=== PATIENT | female | born 1940 | race Caucasian/White ===

== ENCOUNTER → 2017-06-24 | Outpatient (CLI) | payer MEDICARE, OTHER, BC ==
[~2017-06-24] MED LIST: ALPR0.5T3 PO; AMBI5TAB PO; ANTI DEPRESSANT; CALC600T60 PO; LEVO25TA5 PO; LIVA2TAB PO; MULTCAP11 PO; NORT10SO PO; PAIN MEDICATION; SUPECAP PO; VITA500C24 PO; VITA500T88 PO; cipro PO; percocet PO
--- NOTE | 2017-07-15 00:28 | ECWPNPC ---
PATIENT NAME: NIKOLAY HAMILTON : 1940 GENDER: FEMALE VISIT DATE: 06/24/2017 DISCHARGE DATE: 06/24/17 1505 VISIT LOCKED DATE TIME: PHYSICIAN: CAMILLE BOATENG RESOURCE: CAMILLE BOATENG REASON FOR APPOINTMENT 1. BACK HISTORY OF PRESENT ILLNESS FALL RISK SCREENING: SCREENING :NO FALLS IN THE PAST YEAR PAIN SCREENING: PATIENT HAS A COMPLAINT OF ACUTE OR CHRONIC PAIN :YES TODAY'S VISIT: NOTES: REFERRED BY Isaiah BUSTAMANTE PA-C FOR CHRONIC LOW BACK PAINSTATES HAS HAD BACK PAIN FOR 16 YEARS AND FOR 15 YEARS ATTENDED [facility] AND HAD INJECTION THERAPY, HER ELECTRIC WC WAS ORDERED THROUGH THEM. HEAT EASES THE PAIN THE MOST. PAIN HAS INCREASED OVER LAST FEW YEARS. LAST INJECTION WAS OVER A YEAR AGO. PAIN IS A SHARP ACHE AND IS PROLONGED. PAIN IS CENTERED IN LOW BACK WITH SLIGHT RADIATION TO LEFT LEG TO KNEE INTERMITTANTLY. NO PAIN INTO RIGHT LEG. NO N/T/ FEET. WAS TOLD SHE SHOULD NOT WALK MORE THAN 1 BLOCK BY PROVIDERS AT [facility] AND MOTORIZED CHAIR WAS ORDERED. HAS DIFFICULTY STANDING FOR PROLONGED PERIOD. INJECTIONS HELPED THIS. . CURRENT MEDICATIONS TAKING NORTRIPTYLINE HCL 10 MG CAPSULE 1 CAPSULE ORALLY DAILY TAKING ZOLPIDEM TARTRATE 5 MG TABLET 1 TABLET AT BEDTIME ORALLY ONCE A DAY TAKING MELOXICAM 15 MG TABLET 1 TABLET ORALLY ONCE A DAY TAKING LEVOTHYROXINE SODIUM 50 MCG TABLET 1 TABLET ON AN EMPTY STOMACH IN THE MORNING ORALLY ONCE A DAY TAKING CITALOPRAM HYDROBROMIDE 20 MG TABLET 1 TABLET ORALLY ONCE A DAY TAKING ALPRAZOLAM 0.5 MG TABLET 1 TABLET ORALLY THREE TIMES A DAY TAKING LIVALO TABLET ORAL TAKING FIBER - TABLET 2 TABS ORALLY ONCE A DAY NOT-TAKING CIPROFLOXACIN HCL 500 MG TABLET 1 TABLET ORALLY EVERY 12 HRS MEDICATION LIST REVIEWED AND RECONCILED WITH THE PATIENT PAST MEDICAL HISTORY HYPERLIPIDEMIA ANXIETY DEGENERATIVE DISC DISEASE INSOMNIA HYPOTHYROIDISM CATARACTS KIDNEY STONES PULMONARY EMBOLISM ALLERGIES SULFA: HIVES: ALLERGY TAPE ADHESIVE: HIVES: ALLERGY SURGICAL HISTORY TONSILLECTOMY 1945 ADENOIDECTOMY 1945 RIB TAKEN OUT GANGLION CYST X3 SHOULDER SURGERY CHOLECYSTECTOMY KIDNEY STONES REMOVED X2 ANKLE SURGERY LEFT THUMB SURGERY LITHOTRIPSY 05/2014 RIGHT EYE CATARACT SURGERY 06/18/15 LEFT EYE CATARACT SURGERY 08/2015 FAMILY HISTORY FATHER: 66 YRS MOTHER: 75 YRS SIBLINGS: 78 YRS 1 BROTHER(S) . 1DAUGHTER(S) . BROTHER FROM COLON/PANCREATIC CANCER. SOCIAL HISTORY GENERAL: TOBACCO USE ARE YOU A:CURRENT SMOKER HOW MANY CIGARETTES A DAY DO YOU SMOKE?5 OR LESS HOW SOON AFTER YOU WAKE UP DO YOU SMOKE YOUR FIRST CIGARETTE?AFTER 60 MIN HOW OFTEN DO YOU SMOKE CIGARETTES?EVERY DAY PATIENT COUNSELED ON THE DANGERS OF TOBACCO USE AND URGED TO QUIT:06/24/2017 ARE YOU INTERESTED IN QUITTING?NOT READY TO QUIT COUNSELED THE PATIENT ON SMOKING EFFECTS, EDUCATION [id number]/03/2017 LUNG CANCER SCREENING SMOKING STATUS:CURRENT SMOKER ALCOHOL SCREENING POINTS0 INTERPRETATIONNEGATIVE RECREATIONAL DRUG USE DENIES. CAFFEINE 1 A DAY.. SEXUAL HX HAD SEX IN THE LAST 12 MONTHS (VAGINAL, ORAL, OR ANAL)?: NO, HAVE YOU EVER HAD AN STD?: NO. DIET: REGULAR. EXERCISE: WALKS. MARITAL STATUS: . GNOSTICIST [id number] [employer] LANGUAGE LANGUAGES SPOKEN:DANISH EDUCATION LEVEL OF EDUCATION:NOT FINISHED COLLEGE [employer]ANCE DIRECTIVES HEALTH CARE PROXY?NO WOULD YOU LIKE MORE INFORMATION?NO DO YOU HAVE A DNR?NO WOULD YOU LIKE MORE INFORMATION?NO LIVING WILL?NO WOULD YOU LIKE MORE INFORMATION?NO POWER OF SONOGRAPHY TECHNICIAN?NO DOMESTIC VIOLENCE NONE. HOSPITALIZATION/MAJOR DIAGNOSTIC PROCEDURE SURGERY RELATED ONLY REVIEW OF SYSTEMS FOLLOW-UP ROS: PSYCHOLOGY: ANXIETY FOLLOWED BY Harsh BUSTAMANTE . REVIEWED BY: PROVIDER: CAMILLE MARISCAL . CONSTITUTIONAL: ANY CHANGE IN YOUR MEDICAL CONDITION? YES, PT STATES SHE IS BEING TREATED FOR MONO . CHILLS NO . FEVER NO . INFECTION: DO YOU HAVE NEW INFECTIONS? NO . DO YOU HAVE HISTORY OF MRSA? NO . MUSCULOSKELETAL: ANY NEW PATTERNS OF PAIN OR NUMBNESS? YES, PT REPORTS LOWER BACK PAIN . SYTEMIC LUPUS NO . GASTROENTEROLOGY: GENERAL HX OF IBSD - FOLLOWS WITH ROUTINE COLONOSCOPY . ANY NEW CHANGE IN BOWEL CONTROL? NO . BARRETTS ESOPHAGUS NO . CIRRHOSIS NO . HEPATITIS NO . LIVER FAILURE NO . ACID REFLUX NO . UNEXPLAINED WEIGHT LOSS NO . GENITOURINARY: ANY NEW CHANGE IN BLADDER CONTROL? NO . IS THERE A CHANCE YOU COULD BE ? NO . HEMATOLOGY/LYMPH: DO YOU TAKE ANY BLOOD THINNERS? (FOR EXAMPLE- COUMADIN, PLAVIX, AGGRENOX, PLATEL, PRADAXA, OR XARELTO) NO . WHEN WAS YOUR LAST DOSE? DATE: TIME: . LOW PLATELET COUNT NO . SICKLE CELL DISEASE NO . VON WILLIEBRANDS NO . FACTOR V LEIDEN NO . THALLASEMIA NO . ANEMIA NO . EASY BRUISING NO . NEUROLOGY: HAVE YOU FALLEN IN THE PAST 6 MONTHS? NO . ANY NEW EXTREMITY NUMBNESS OR WEAKNESS? NO . HEAD INJURY NO . DEMENTIA NO . CEREBRAL PALSY NO . MULTIPLE SCLEROSIS NO . DIZZINESS NO . HEADACHE NO . STROKES NO . VERTIGO NO . CARDIOLOGY: DO YOU HAVE A PACEMAKER OR DEFIBRILLATOR? NO . ANGINA NO . HEART ATTACK NO . HEART SURGERY NO . CONGESTIVE HEART FAILURE/FLUID OVERLOAD NO . CHEST PAIN NO . HIGH BLOOD PRESSURE NO . IRREGULAR HEART BEAT NO . RESPIRATORY: SLEEP APNEA HAS BEEN TESTED - TOLD SHE DOES NOT BREATHE DEEPLY. 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 . HAVE YOU BEEN SICK IN THE PAST WEEK? NO . FEVER NO . FLU LIKE SYMPTOMS? NO . CPAP NO . BYPAP NO . ASTHMA NO . EMPHYSEMA NO . CHRONIC LUNG DISEASES NO . SHORTNESS OF BREATH ON EXERTION NO . COUGH NO . SNORING NO . INTEGUMENTARY: DO YOU HAVE ANY RASHES OR OPEN SORES? NO . ALLERGIC/IMMUNO: ARE YOU ALLERGIC TO SHELLFISH OR IV DYE? NO . ANY NEW ALLERGIES? NO . PSYCHIATRIC: DO YOU HAVE THOUGHTS OF HURTING YOURSELF OR SOMEONE ELSE? NO . ARE YOU ABUSED, NEGLECTED, OR IN AN UNSAFE ENVIRONMENT? NO . ENDOCRINOLOGY: ARE YOU DIABETIC? NO . THYROID DISORDER YES - ON REPLACEMENT . OTHER: DO YOU NEED ANY PRESCRIPTIONS? NO . IF YES, PLEASE LIST: ____ . ANY NEW PROBLEMS WITH YOUR MEDICATIONS? NO . WHEN DID YOU LAST EAT? ____ . WHEN DID YOU LAST DRINK? ____ . WHAT DID YOU LAST DRINK? ____ . NAME OF PERSON DRIVING YOU HOME? ____ . DO YOU HAVE ANY OTHER QUESTIONS OR CONCERNS NO . VITAL SIGNS WT 206.2 LBS, HT 5 1/2', BMI 33.28 INDEX, BP 126/70 MM HG, HR 78 /MIN, RR 18 /MIN, TEMP 96.0 F, OXYGEN SAT % 94%, SAFE IN ENV? (Y/N) YES, NA INITIALS MP 1346, REVIEWED BY: EM. EXAMINATION GENERAL EXAMINATION: GENERAL APPEARANCE:TALKATIVE, ANIMATED. PSYCHALERT , APPROPRIATE MOOD AND AFFECT , ORIENTED X 3 . HEENT:NORMOCEPHALIC, NO LYMPHADENOPATHY, NO THYROMEGLY. LUNGS:CLEAR TO AUSCULTATION BILATERALLY, NO WHEEZES, RALES AND RHONCHI. HEART:HEART RATE REGULAR, NORMAL S1S2, NO MURMURS, CLICK OR RUBS. MUSCULOSKELETAL:EXQUISITE OVER LEFT SACRAL ILIAC JOINT AND ACROSS THE LUMBOSACRAL AXIS. , TRIGGER POINTS AND TIGHT FIBROUS BANDS NOTED ACROSS SACRUM. SLOW TO RISE TO STANDING POSITION. POSITIVE PAYTON SIGN LEFT SIDE. . EXTREMITIES:NO EDEMA. NEUROLOGIC EXAM:NO SENS . DTR'S 1+ LLE, TRACE TO ABSENT ANKLE JERKS, PLANTAR RESPONSE IS EQUIV. 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 WITHOUT [id number],SUSAN M 06/24/2017 2:56:40 PM > HX OF STENOSIS, NOW WITH INCREASED LEFT LEG PAIN, BACK PAIN NOTES: NEED TREATMENT RECORDS AND IMAGING STUDIES FROM [facility], FALLS CARE PLAN: 1. RECOMMEND REMOVING ALL THROW RUGS. 2. RECOMMEND NIGHT LIGHTS 3. RECOMMEND WEARING RUBBER SOLED SHOES AND TO NOT GO BAREFOOT. 4.. ADVISED TO CHANGE POSITION SLOWLY FROM SUPINE TO STANDING TO AVOID DIZZINESS. 5. ADVISED TO USE ASSISTIVE DEVICE SUCH CANE OR WALKER 6. USE LIFELINE SERVICES OR KEEP PORTABLE PHONE READILY AVAILABLE, # 226 TOBACCO USE SCREENING/INTERVENTION: PATIENT CURRENTLY USED TOBACCO. WAS OFFERED SMOKING CESSATION FOR GUIDANCE IN QUITTING THROUGH THE [facility] QUITS PROGRAM AND THE [facility] CESSATION PROGRAM. PROCEDURE CODES FA211 ESTABILISHED PATIENT [facility] FAC[facility] CHARGE A8562 PAIN ASSESS POS TOOL F/U PLAN DOC 3016F PT SCRND UNHLTHY OH USE 1124F ACP DISCUSS-NO [id number] DOCD 0518F FALL PLAN OF CARE DOCD G8427 DOC MEDS VERIFIED W/PT OR RE G8420 BMI<30 AND >=22 CALC & DOCU 3288F FALL RISK ASSESSMENT DOCD 4004F PT TOBACCO SCREEN RCVD TLK DISPOSITION & COMMUNICATION FOLLOW UP 1 MONTH (REASON: [facility] TREATMENT NOTES AND IMAGING STUDIES BACK PAIN) ELECTRONICALLY SIGNED BY AC CHACON ON 07/14/2017 AT 06:48 PM EDT DISCLAIMER : THIS IS A VISIT SUMMARY [facility]ACTED FROM [facility]. IT IS NOT A COPY OF THE [facility] PROGRESS NOTE. MTDD
== END ==
LOC: M PAIN 13:20
PROVIDERS: ATTEND Nurse Practitioner Family
DX: G89.29 Other chronic pain (principal); M54.42 Lumbago with sciatica, left side; M41.26 Other idiopathic scoliosis, lumbar region; E78.5 Hyperlipidemia, unspecified; F41.9 Anxiety disorder, unspecified; G47.00 Insomnia, unspecified; E03.9 Hypothyroidism, unspecified; F17.210 Nicotine dependence, cigarettes, uncomplicated; Z87.442 Personal history of urinary calculi; Z86.711 Personal history of pulmonary embolism; Z79.899 Other long term (current) drug therapy; Z88.2 Allergy status to sulfonamides; Z91.048 Other nonmedicinal substance allergy status

== ENCOUNTER → 2017-06-29 | Outpatient (CLI) | payer MEDICARE, BC, OTHER ==
--- NOTE | 2017-06-29 15:50 | REP ---
MRI LUMBAR SPINE WITHOUT CONTRAST: HISTORY: Back pain. Decreased signal intensity on T2-weighted images is present in the lumbar intervertebral discs. The discs are decreased in height. These findings are consistent with disc degeneration. There is no disc bulge or herniation at the L1-2 through L3-4 and L5-S1 levels. There is hypertrophy of the ligamenta flava and posterior articulating facets at the L2-3 and L3-4 levels and facet hypertrophy at the L5-S1 level. The nerves exit the neural foramina without compression. A diffuse disc bulge is present at the L4-5 level. There is minimal compression of the thecal sac. There is hypertrophy of the ligamenta flava and posterior articulating facets. The L4 nerves exit the neural foramina without compression. The conus medullaris is normal in appearance terminating at the level of the L1 intervertebral disc. Hemangiomas are present in the T11 and L4 vertebral bodies. Increased signal intensity on T2-weighted images is present in the endplates of the L2 through L4 vertebral bodies. This represents degenerative change. IMPRESSION: Diffuse disc bulge at the L4-5 level with minimal thecal sac compression. Signed by Maikol Castro MD 06/29/2017 03:54 P
== END ==
LOC: M RAD 14:07
PROVIDERS: ATTEND Nurse Practitioner Family
DX: M51.26 Other intervertebral disc displacement, lumbar region (principal); M54.42 Lumbago with sciatica, left side

== ENCOUNTER → 2017-07-23 | Outpatient (CLI) | payer MEDICARE, BC, OTHER ==
--- NOTE | 2017-08-15 00:48 | ECWPNPC ---
PATIENT NAME: NIKOLAY HAMILTON : 1940 GENDER: FEMALE VISIT DATE: 07/23/2017 DISCHARGE DATE: 07/23/17 1552 VISIT LOCKED DATE TIME: PHYSICIAN: CAMILLE BOATENG RESOURCE: CAMILLE BOATENG REASON FOR APPOINTMENT 1. BACK HISTORY OF PRESENT ILLNESS HISTORY OF PRESENT ILLNESS: PAIN THE PATIENT DESCRIBES THE PAIN... FALL RISK SCREENING: SCREENING :NO FALLS IN THE PAST YEAR TODAY'S VISIT: NOTES: RATES PAIN LEVEL TODAY 8/10. NOTES CAN NOT GET COMFORTABLE. NOTES PAIN ID CONSTANT, ACHING, STABBING, SORE AND TENDER. . CURRENT MEDICATIONS TAKING NORTRIPTYLINE HCL 10 MG CAPSULE 1 CAPSULE ORALLY DAILY TAKING ZOLPIDEM TARTRATE 5 MG TABLET 1 TABLET AT BEDTIME ORALLY ONCE A DAY TAKING MELOXICAM 15 MG TABLET 1 TABLET ORALLY ONCE A DAY TAKING LEVOTHYROXINE SODIUM 50 MCG TABLET 1 TABLET ON AN EMPTY STOMACH IN THE MORNING ORALLY ONCE A DAY TAKING CITALOPRAM HYDROBROMIDE 20 MG TABLET 1 TABLET ORALLY ONCE A DAY TAKING ALPRAZOLAM 0.5 MG TABLET 1 TABLET ORALLY THREE TIMES A DAY TAKING LIVALO TABLET ORAL TAKING FIBER - TABLET 2 TABS ORALLY ONCE A DAY NOT-TAKING CIPROFLOXACIN HCL 500 MG TABLET 1 TABLET ORALLY EVERY 12 HRS MEDICATION LIST REVIEWED AND RECONCILED WITH THE PATIENT PAST MEDICAL HISTORY HYPERLIPIDEMIA ANXIETY DEGENERATIVE DISC DISEASE INSOMNIA HYPOTHYROIDISM CATARACTS 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 ALLERGIES SULFA: HIVES: ALLERGY TAPE ADHESIVE: HIVES: ALLERGY SURGICAL HISTORY TONSILLECTOMY 194 ADENOIDECTOMY 194 RIB TAKEN OUT GANGLION CYST X3 SHOULDER SURGERY CHOLECYSTECTOMY KIDNEY STONES REMOVED X2 ANKLE SURGERY LEFT THUMB SURGERY LITHOTRIPSY 05/2014 RIGHT EYE CATARACT SURGERY 06/18/15 LEFT EYE CATARACT SURGERY 08/2015 HOSPITALIZATION/MAJOR DIAGNOSTIC PROCEDURE SURGERY RELATED ONLY REVIEW OF SYSTEMS REVIEWED BY: PROVIDER: CAIMLLE MARISCAL . CONSTITUTIONAL: ANY CHANGE IN YOUR MEDICAL CONDITION? NO . CHILLS NO . FEVER NO . INFECTION: DO YOU HAVE NEW INFECTIONS? NO . DO YOU HAVE HISTORY OF MRSA? NO . MUSCULOSKELETAL: ANY NEW PATTERNS OF PAIN OR NUMBNESS? NO . GASTROENTEROLOGY: ANY NEW CHANGE IN BOWEL CONTROL? NO . GENITOURINARY: ANY NEW CHANGE IN BLADDER CONTROL? NO . IS THERE A CHANCE YOU COULD BE ? NO . HEMATOLOGY/LYMPH: DO YOU TAKE ANY BLOOD THINNERS? (FOR EXAMPLE- COUMADIN, PLAVIX, AGGRENOX, PLATEL, PRADAXA, OR XARELTO) NO . WHEN WAS YOUR LAST DOSE? DATE: TIME: . NEUROLOGY: HAVE YOU FALLEN IN THE PAST 6 MONTHS? NO . ANY NEW EXTREMITY NUMBNESS OR WEAKNESS? NO . CARDIOLOGY: DO YOU HAVE A PACEMAKER OR DEFIBRILLATOR? NO . CHEST PAIN PATIENT DENIES . RESPIRATORY: HAVE YOU BEEN SICK IN THE PAST WEEK? NO . FEVER NO . FLU LIKE SYMPTOMS? NO . COUGH NO . INTEGUMENTARY: DO YOU HAVE ANY RASHES OR OPEN SORES? NO . ALLERGIC/IMMUNO: ARE YOU ALLERGIC TO SHELLFISH OR IV DYE? NO . ANY NEW ALLERGIES? NO . PSYCHIATRIC: DO YOU HAVE THOUGHTS OF HURTING YOURSELF OR SOMEONE ELSE? NO . ARE YOU ABUSED, NEGLECTED, OR IN AN UNSAFE ENVIRONMENT? NO . ENDOCRINOLOGY: ARE YOU DIABETIC? NO . OTHER: DO YOU NEED ANY PRESCRIPTIONS? ?? . IF YES, PLEASE LIST: ____ . ANY NEW PROBLEMS WITH YOUR MEDICATIONS? NO . WHEN DID YOU LAST EAT? ____ . WHEN DID YOU LAST DRINK? ____ . WHAT DID YOU LAST DRINK? ____ . NAME OF PERSON DRIVING YOU HOME? ____ . DO YOU HAVE ANY OTHER QUESTIONS OR CONCERNS NO . VITAL SIGNS WT 209 LBS, HT 5 1/2', BMI 33.73 INDEX, BP 147/67 MM HG, HR 82 /MIN, RR 18 /MIN, TEMP 96.8 F, OXYGEN SAT % 95, REVIEWED BY: NL. EXAMINATION GENERAL EXAMINATION: GENERAL APPEARANCE:TALKATIVE, ANIMATED. PSYCHALERT , APPROPRIATE MOOD AND AFFECT , ORIENTED X 3 , VERY TALKATIVE. LUNGS:CLEAR TO AUSCULTATION BILATERALLY, NO WHEEZES, RALES AND RHONCHI. HEART:HEART RATE REGULAR, NORMAL S1S2, NO MURMURS, CLICK OR RUBS. MUSCULOSKELETAL:EXQUISITE OVER LEFT SACRAL ILIAC JOINT AND ACROSS THE LUMBOSACRAL AXIS. , TRIGGER POINTS AND TIGHT FIBROUS BANDS NOTED ACROSS SACRUM. SLOW TO RISE TO STANDING POSITION. POSITIVE PAYTON SIGN LEFT SIDE. . EXTREMITIES:NO EDEMA. NEUROLOGIC EXAM:NO SENS . DTR'S 1+ LLE, TRACE TO ABSENT ANKLE JERKS, PLANTAR RESPONSE IS EQUIV. DIAGNOSTIC TESTS REVIEWEDMRI LUMBAR SPINE COMPLETED 06/29/17 - REVIEWED. DEMONSTRATES DIFFUSE DISC BULGE AT L4-5 WITH MINIMAL THECAL SAC COMPRESSION.THERE IS HYPERTROPHY OF THE LIGAMENTUM FLAVA AND THE POSTERIOR ARTICULATING FACETS AT L2-3 THROUGH L5-S1. . 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 RECOMMEND REMOVING ALL THROW RUGS. 2. RECOMMEND NIGHT LIGHTS 3. RECOMMEND WEARING RUBBER SOLED SHOES AND TO NOT GO BAREFOOT. 4.. ADVISED TO CHANGE POSITION SLOWLY FROM SUPINE TO STANDING TO AVOID DIZZINESS. 5. ADVISED TO USE ASSISTIVE DEVICE SUCH CANE OR WALKER 6. USE [employer] OR KEEP PORTABLE PHONE READILY AVAILABLE, #128 - SCREENING BMI AND F/U PLAN IN : BMI ABOVE NORMAL TODAY. DISCUSSED WITH PATIENT NUTRITIONAL FOOD CHOICES TO ASSIST WITH WEIGHT LOSS. RECCOMMENDED REDUCING SALT, SUGAR, SODA INTAKE. RECOMMEND INCREASE ACTIVITY TO INCLUDE WALKING ON A REGULAR BASIS. CLINICAL NOTES: [employer] REGISTRY REVIEWED AND DEMNOSTRATES COMPLLIANCE. (#[id number]). OFFICE NOTES FROM [facility] REVIEWED. HAS HAD NERVE BLOCKS IN THE PAST LEFT LUMBAR RFI COMPLETED 10/31/13 WITH PATIENT REPORTING <75% IMPROVEMENT. PROCEDURE CODES FA211 ESTABILISHED PATIENT [facility] FACILITY CHARGE G8783 BP SCR PRFRM RCMDD DEFIND SCR INTVL G8730 PAIN ASSESS POS TOOL F/U PLAN DOC 3016F PT SCRND UNHLTHY [place] USE 1124F ACP DISCUSS-NO DSCNMKR DOCD 1036F TOBACCO NON-USER 0518F FALL PLAN OF CARE DOCD G6156 DOC MEDS VERIFIED W/PT OR RE G8417 BMI >=30 CALCUATE W/FOLLOWUP 3288F FALL RISK ASSESSMENT DOCD DISPOSITION & COMMUNICATION FOLLOW UP AFTER INJECTION (REASON: CHECK AUTH FOR THERAPEUTIC LUMBAR FACET BLOCK ) ELECTRONICALLY SIGNED BY AC CHACON ON 08/13/2017 AT 08:29 AM EDT DISCLAIMER : THIS IS A VISIT SUMMARY EXTRACTED FROM THE [employer] [facility] CHART. IT IS NOT A COPY OF THE [employer] [facility] PROGRESS NOTE. MTDD
== END ==
LOC: M PAIN 14:00
PROVIDERS: ATTEND Nurse Practitioner Family
DX: G89.29 Other chronic pain (principal); M12.88 Other specific arthropathies, not elsewhere classified, other specified site; M54.42 Lumbago with sciatica, left side; M41.26 Other idiopathic scoliosis, lumbar region; E78.5 Hyperlipidemia, unspecified; F41.9 Anxiety disorder, unspecified; G47.00 Insomnia, unspecified; E03.9 Hypothyroidism, unspecified; Z88.2 Allergy status to sulfonamides; L23.1 Allergic contact dermatitis due to adhesives; Z79.899 Other long term (current) drug therapy

== ENCOUNTER → 2017-08-05 | Outpatient (CLI) | payer MEDICARE, BC, OTHER ==
[2017-08-05 15:03] LABS: BASO % 0.6 % (0.0-1.0); EOS # 0.2 K/mm3 (0.0-0.50); EOS % 2.4 % (0.0-3.0); LARGE UNSTAINED CELL # 0.1 K/mm3 (0.0-0.4); LARGE UNSTAINED CELL % 1.8 % (0.0-4.0); LYMPH # 1.6 K/mm3 (1.5-4.5); LYMPH % 22.3 % (24.0-44.0); MEAN CORPUSCULAR HEMOGLOBIN 29.2 pg (27.0-33.0); MEAN CORPUSCULAR HGB CONC 32.2 g/dl (32.0-36.5); MEAN CORPUSCULAR VOLUME 90.8 fl (80.0-96.0); MONO # 0.4 K/mm3 (0.0-0.8); MONO % 6.9 % (0.0-5.0); NEUTROPHILS # 4.3 K/mm3 (1.8-7.7); NEUTROPHILS % 66.1 % (36.0-66.0); PLATELET COUNT, AUTOMATED 168 k/mm3 (150-450); RED CELL DISTRIBUTION WIDTH 12.7 % (11.5-14.5); WHITE BLOOD COUNT 6.5 K/mm3 (4.0-10.0)
[2017-08-05 15:32] LABS: IMMUNOGLOBULIN G 584 MG/DL (681-1648); IMMUNOGLOBULIN M 230 MG/DL (40-230)
[2017-08-05 15:54] LABS: IMMUNOGLOBULIN E 5.1 IU/ML (<100)
[2017-08-10 00:06] LABS: AUREOBASIDIUM PULLULANS Negative (Negative); MICROPOLYSPORA FAENI AB Negative (Negative); PIGEON SERUM AB Negative (Negative); STREP PNEUMO TYPE 12F 0.8 ug/mL (>1.3); STREP PNEUMO TYPE 19A 5.7 ug/mL (>1.3); STREP PNEUMO TYPE 6B 2.8 ug/mL (>1.3); STREP PNEUMO TYPE 7F 4.4 ug/mL (>1.3); STREP PNEUMO TYPE 9N 22.2 ug/mL (>1.3); STREP PNEUMO TYPE 9V 22.3 ug/mL (>1.3); THERMOACTINOMYCES SACCHARI Negative (Negative); THERMOACTINOMYCES VULGARIS Negative (Negative)
[2017-08-10 14:14] LABS: ANTI TETANUS ANTIBODY 0.29 IU/mL (<0.10)
== END ==
LOC: M LAB 13:56
PROVIDERS: ATTEND Allergy & Immunology Allergy
DX: B99.9 Unspecified infectious disease (principal); D81.9 Combined immunodeficiency, unspecified

== ENCOUNTER → 2017-08-09 | Outpatient (CLI) | payer MEDICARE, OTHER, BC ==
[~2017-08-09] MED LIST changes: +BUPIVACAINE HCL 0.25% 30 ML VIAL As Ordered ONE; +ISOVUE-M 300 61% 15ML VIAL (Q9967) As Ordered ONE; +LIDOCAINE 1% SDV INJ 30 ML VIAL As Ordered ONE; +MIDAZOLAM INJ 2 MG/2 ML VIAL (J2250) As Ordered ONE; +TRIAMCINOLONE ACETONIDE SUSP 40 MG/ML VIAL (J3301) As Ordered ONE; +fentaNYL 100 MCG/2 ML INJECTION (J3010) As Ordered ONE
--- NOTE | 2017-08-09 14:25 | REP ---
Partial lumbar spine series: Two views . History: Injection procedure for pain. 25 seconds of fluoroscopy time is reported. Findings: A sequence of two fluoroscopically obtained last image hold procedural spot radiographs of the lumbar spine document needle position and contrast injection associated with injection procedure. Signed by Balta Mcintyre MD 08/09/2017 02:17 P
--- NOTE | 2017-08-10 00:19 | ECWPNPC ---
PATIENT NAME: NIKOLAY HAMILTON : 1940 GENDER: FEMALE VISIT DATE: 08/09/2017 DISCHARGE DATE: 08/09/17 1533 VISIT LOCKED DATE TIME: PHYSICIAN: AUSTIN SALAZAR RESOURCE: AUSTIN SALAZAR REASON FOR APPOINTMENT 1. THERAPEUTIC LUMBAR FACET BLOCK HISTORY OF PRESENT ILLNESS HISTORY OF PRESENT ILLNESS: PAIN THE PATIENT DESCRIBES THE PAIN... FALL RISK SCREENING: SCREENING :NO FALLS IN THE PAST YEAR CURRENT MEDICATIONS TAKING NORTRIPTYLINE HCL 10 MG CAPSULE 1 CAPSULE ORALLY DAILY, NOTES: 08-08-172099 TAKING ZOLPIDEM TARTRATE 5 MG TABLET 1 TABLET AT BEDTIME ORALLY ONCE A DAY, NOTES: 08-08-172099 TAKING LEVOTHYROXINE SODIUM 50 MCG TABLET 1 TABLET ON AN EMPTY STOMACH IN THE MORNING ORALLY ONCE A DAY, NOTES: 08-08-17 0800 TAKING CITALOPRAM HYDROBROMIDE 20 MG TABLET 1 TABLET ORALLY ONCE A DAY, NOTES: 08-08-172099 TAKING ALPRAZOLAM 0.5 MG TABLET 1 TABLET ORALLY THREE TIMES A DAY, NOTES: 08-08-172099 TAKING LIVALO TABLET ORAL , NOTES: 08-08-172099 TAKING FIBER - TABLET 2 TABS ORALLY ONCE A DAY, NOTES: NONE TAKING OXYCODONE HCL 5 MG TABLET 1 TABLET ORALLY EVERY 6 HRS PRN PAIN MDD=2 MAX 60 FOFR 30 DAYS, NOTES: 08-08-171599 TAKING CYCLOBENZAPRINE HCL 5 MG TABLET 1 TABLET NEEDED ORALLY BID, NOTES: 08-08-172099 NOT-TAKING MELOXICAM 15 MG TABLET 1 TABLET ORALLY ONCE A DAY DISCONTINUED CIPROFLOXACIN HCL 500 MG TABLET 1 TABLET ORALLY EVERY 12 HRS MEDICATION LIST REVIEWED AND RECONCILED WITH THE PATIENT PAST MEDICAL HISTORY HYPERLIPIDEMIA ANXIETY DEGENERATIVE DISC DISEASE INSOMNIA HYPOTHYROIDISM CATARACTS 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 ALLERGIES SULFA: HIVES: ALLERGY TAPE ADHESIVE: HIVES: ALLERGY SOCIAL HISTORY GENERAL: TOBACCO USE ARE YOU A:CURRENT SMOKER HOW MANY CIGARETTES A DAY DO YOU SMOKE?5 OR LESS HOW SOON AFTER YOU WAKE UP DO YOU SMOKE YOUR FIRST CIGARETTE?AFTER 60 MIN HOW OFTEN DO YOU SMOKE CIGARETTES?EVERY DAY PATIENT COUNSELED ON THE DANGERS OF TOBACCO USE AND URGED TO QUIT:06/24/2017 ARE YOU INTERESTED IN QUITTING?NOT READY TO QUIT COUNSELED THE PATIENT ON SMOKING EFFECTS, EDUCATION [id number]/03/2017 LUNG CANCER SCREENING SMOKING STATUS:CURRENT SMOKER ALCOHOL SCREENING DID YOU HAVE A DRINK CONTAINING ALCOHOL IN THE PAST YEAR?NO POINTS0 INTERPRETATIONNEGATIVE RECREATIONAL DRUG USE DENIES. CAFFEINE 1 A DAY.. SEXUAL HX HAD SEX IN THE LAST 12 MONTHS (VAGINAL, ORAL, OR ANAL)?: NO, HAVE YOU EVER HAD AN STD?: NO. DIET: REGULAR. EXERCISE: WALKS. MARITAL STATUS: . CONGREGATION [id number] [facility] LANGUAGE LANGUAGES SPOKEN:BOTSWANAN EDUCATION LEVEL OF EDUCATION:NOT FINISHED [facility]LEGE [facility] PFS, CLERGY, PUBLIC HEALTH REFERRALS HAS THE PATIENT BEEN EDUCATED REGARDING HIS/HER PLAN OF CARE?YES PLEASE DOCUMENT ANY ADDTIONAL DETAILS.PLEASE FREE TEXT IN THE NOTES SECTION. PROCEDURE INSTRUCTIONS HAS THE PATIENT BEEN EDUCATED REGARDING PAIN, THE RISK FOR PAIN, THE IMPORTANCE OF EFFECTIVE PAIN MANAGEMENT, AND THE PAIN ASSESSMENT PROCESS?YES [facility] DIRECTIVES HEALTH CARE PROXY?NO WOULD YOU LIKE MORE INFORMATION?NO DO YOU HAVE A DNR?NO WOULD YOU LIKE MORE INFORMATION?NO LIVING WILL?NO WOULD YOU LIKE MORE INFORMATION?NO POWER OF LEAD ENTERPRISE ARCHITECT?NO DOMESTIC VIOLENCE NONE. REVIEW OF SYSTEMS REVIEWED BY: PROVIDER: . CONSTITUTIONAL: ANY CHANGE IN YOUR MEDICAL CONDITION? NO . CHILLS NO . FEVER NO . INFECTION: DO YOU HAVE NEW INFECTIONS? NO . DO YOU HAVE HISTORY OF MRSA? NO . MUSCULOSKELETAL: ANY NEW PATTERNS OF PAIN OR NUMBNESS? NO . GASTROENTEROLOGY: ANY NEW CHANGE IN BOWEL CONTROL? NO . GENITOURINARY: ANY NEW CHANGE IN BLADDER CONTROL? NO . IS THERE A CHANCE YOU COULD BE ? NO . HEMATOLOGY/LYMPH: DO YOU TAKE ANY BLOOD THINNERS? (FOR EXAMPLE- COUMADIN, PLAVIX, AGGRENOX, PLATEL, PRADAXA, OR XARELTO) NO . WHEN WAS YOUR LAST DOSE? DATE: TIME: . NEUROLOGY: HAVE YOU FALLEN IN THE PAST 6 MONTHS? NO . ANY NEW EXTREMITY NUMBNESS OR WEAKNESS? NO . CARDIOLOGY: DO YOU HAVE A PACEMAKER OR DEFIBRILLATOR? NO . RESPIRATORY: HAVE YOU BEEN SICK IN THE PAST WEEK? NO . FEVER NO . FLU LIKE SYMPTOMS? NO . COUGH NO . INTEGUMENTARY: DO YOU HAVE ANY RASHES OR OPEN SORES? NO . ALLERGIC/IMMUNO: ARE YOU ALLERGIC TO SHELLFISH OR IV DYE? NO . ANY NEW ALLERGIES? NO . PSYCHIATRIC: DO YOU HAVE THOUGHTS OF HURTING YOURSELF OR SOMEONE ELSE? NO . ARE YOU ABUSED, NEGLECTED, OR IN AN UNSAFE ENVIRONMENT? NO . ENDOCRINOLOGY: ARE YOU DIABETIC? NO . OTHER: DO YOU NEED ANY PRESCRIPTIONS? NO . IF YES, PLEASE LIST: ____ . ANY NEW PROBLEMS WITH YOUR MEDICATIONS? NO . WHEN DID YOU LAST EAT? 08-08-17 . WHEN DID YOU LAST DRINK? 08-08-17 PM . WHAT DID YOU LAST DRINK? WATER . NAME OF PERSON DRIVING YOU HOME? SUJATHA LOMAS . DO YOU HAVE ANY OTHER QUESTIONS OR CONCERNS NO . VITAL SIGNS WT 208 LBS, HT 5 1/2', BMI 33.57 INDEX, BP 134/64 MM HG, HR 83 /MIN, RR 18 /MIN, TEMP 96.1 F, OXYGEN SAT % 96%, NA INITIALS SC 11:23, REVIEWED BY: CM. 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 AUSTIN SALAZAR COSMETOLOGY PROFESSOR NONE ANESTHESIA LOCAL WITH IV SEDATION PRE PROCEDURE NOTE THE PATIENT HAS A HISTORY OF CHRONIC LOW BACK PAIN. I EVALUATE THE PATIENT AND REVIEWED THE CHART. I WENT OVER THE RISKS, ALTERNATIVES, AND BENEFITS ASSOCIATED WITH THIS PROCEDURE. PATIENT WOULD LIKE TO MOVE FORWARD WITH IV SEDATION DUE TO DISCOMFORT, PAIN AND ANXIETY ASSOCIATED WITH THE PROCEDURE. THE PATIENT WOULD LIKE TO PROCEED AND GIVE CONSENT TO PERFORMED THE PROCEDURE. THE PATIENT DENIES UNEXPLAINABLE WEIGHT LOSS, FEVER, CHILLS, OR NEW CHANGES IN URINARY OR BOWEL CONTROL DESCRIPTION OF PROCEDURE THE PATIENT WAS BROUGHT TO THE PROCEDURE ROOM AND PLACED IN THE PRONE POSITION. THE LUMBOSACRAL AREA WAS CLEANED WITH CHLORAPREP SOLUTION AND DRAPED ASEPTICALLY. THE PROCEDURE WAS DONE UNDER STERILE CONDITIONS. I CHECKED LATERALITY AND THE LEVEL WHERE THE PROCEDURE WAS GOING TO BE PERFORMED WITH THE PATIENT AND THE SUPPORTING STAFF AT THE MOMENT OF THE TIME OUT IN THE PROCEDURE ROOM. UNDER FLUOROSCOPIC GUIDANCE, THE TARGET POINT WAS SELECTED AT THE RIGHT AND LEFT L4-L5 AND RIGHT AND LEFT L5-S1 FACET JOINT. TARGET POINT WAS SELECTED AFTER LATERAL ROTATION AND TILT OF THE MAGNIFIER OF THE C-ARM. LIDOCAINE 0.5% WAS USED TO NUMB THE SKIN AND THE SUBCUTANEOUS TISSUE BELOW IT. SPINAL NEEDLES, 22-GAUGE, WERE ADVANCED UNDER FLUOROSCOPIC GUIDANCE AND FOLLOWING PATIENT FEEDBACK UNTIL THE TARGETS WERE TOUCHED. THE POSITION OF THE NEEDLES WAS VERIFIED WITH AP AND LATERAL VIEWS. AFTER PROPER POSITION OF THE NEEDLES WAS ACHIEVED, ISOVUE-M DYE 30% 0.1 ML WAS INJECTED SHOWING ADEQUATE SPREAD OF THE DYE. THEN A SOLUTION OF 1.9 ML OF BUPIVACAINE 0.125% OF KENALOG 10 MG WAS INJECTED AT EACH SITE. PATIENT RECEIVED VERSED 2 MG AND FENTANYL 200 MCG IV DIVIDED DOSES THERE WAS NO EVIDENCE OF BLOOD, PARESTHESIA OR CEREBROSPINAL FLUID DURING THE PROCEDURE. THE PATIENT WAS SENT TO THE RECOVERY ROOM. THE PATIENT WAS MOVING THE EXTREMITIES AND DOING WELL. THERE WAS NO COMPLICATION DURING THE PROCEDURE. FLUOROSCOPY TIME WAS 25 SECONDS. FACE TO FACE TIME WAS 17 MINUTES POST PROCEDURE NOTE THE PATIENT WILL BE SEEN IN A FOLLOW UP IN THE NEXT FEW WEEKS. INSTRUCTIONS WERE GIVEN, QUESTIONS WERE ANSWERED, AND THE PATIENT EXPRESSED UNDERSTANDING AND AGREES WITH THE PLAN. I, JENI ADAN, DOCUMENTED THE ABOVE INFORMATION ACTING A SCRIBE FOR DR. SALAZAR. I HAVE REVIEWED THE ABOVE DOCUMENT, WRITTEN BY JENI ADAN SCRIBE AND I VERIFY THAT IT IS [facility]NO[facility] FACET BLOCK (PAIN)[id number] PROCEDURE CODES 67949 INJ PARAVERT F JNT L/S 1 LEV 25087 INJ PARAVERT F JNT L/S 2 LEV 6045F RADXPS IN END [id number] PXD 46009 MOD SED SAME PHYS/QHP 5/>YRS DISPOSITION & COMMUNICATION FOLLOW UP 3 WEEKS ELECTRONICALLY SIGNED BY AUSTIN SALAZAR MD ON 08/09/2017 AT 06:25 PM EDT DISCLAIMER : THIS IS A VISIT SUMMARY EXTRACTED FROM THE [facility] CHART. IT IS NOT A COPY OF THE [facility] PROGRESS NOTE. MTDD
== END ==
LOC: M PAIN 11:15
PROVIDERS: ATTEND Anesthesiology
DX: G89.29 Other chronic pain (principal); M47.816 Spondylosis without myelopathy or radiculopathy, lumbar region; M47.817 Spondylosis without myelopathy or radiculopathy, lumbosacral region; E78.5 Hyperlipidemia, unspecified; F41.9 Anxiety disorder, unspecified; F17.210 Nicotine dependence, cigarettes, uncomplicated; G47.00 Insomnia, unspecified; E03.9 Hypothyroidism, unspecified; Z86.711 Personal history of pulmonary embolism; Z87.442 Personal history of urinary calculi; Z79.891 Long term (current) use of opiate analgesic; Z79.899 Other long term (current) drug therapy; Z88.2 Allergy status to sulfonamides; Z91.048 Other nonmedicinal substance allergy status
CPT/HCPCS: 64493; 64494; 99152; J2250; J3010; J3301; Q9967

== ENCOUNTER → 2017-08-11 | Outpatient (REF) | payer MEDICARE, OTHER, BC ==
[~2017-08-11] MED LIST changes: -BUPIVACAINE HCL 0.25% 30 ML VIAL As Ordered ONE; -ISOVUE-M 300 61% 15ML VIAL (Q9967) As Ordered ONE; -LIDOCAINE 1% SDV INJ 30 ML VIAL As Ordered ONE; -MIDAZOLAM INJ 2 MG/2 ML VIAL (J2250) As Ordered ONE; -TRIAMCINOLONE ACETONIDE SUSP 40 MG/ML VIAL (J3301) As Ordered ONE; -fentaNYL 100 MCG/2 ML INJECTION (J3010) As Ordered ONE
== END ==
LOC: M LAB REF 10:00
PROVIDERS: ATTEND Allergy & Immunology Allergy
DX: D81.9 Combined immunodeficiency, unspecified (principal); B99.9 Unspecified infectious disease

== ENCOUNTER → 2017-09-16 | Outpatient (CLI) | payer MEDICARE, OTHER ==
--- NOTE | 2017-10-18 00:48 | ECWPNPC ---
PATIENT NAME: NIKOLAY HAMILTON : 1940 GENDER: FEMALE VISIT DATE: 09/16/2017 DISCHARGE DATE: 09/16/17 1517 VISIT LOCKED DATE TIME: PHYSICIAN: CAMILLE BOATENG RESOURCE: CAMILLE BOATENG REASON FOR APPOINTMENT 1. POST PROCEDURE HISTORY OF PRESENT ILLNESS HISTORY OF PRESENT ILLNESS: PAIN THE PATIENT DESCRIBES THE PAIN... FALL RISK SCREENING: SCREENING :NO FALLS IN THE PAST YEAR TODAY'S VISIT: NOTES: RIGHT HIP BURSITIS. RATES PAIN TODAY 12/01. NOTES R HIP BURSA PAIN IS COMPLETELY RESOLVED. STILL HAS SOME TENDERNESS OVER RIGHT LOW BACK WITH STANDING OR LEANING. . CURRENT MEDICATIONS TAKING NORTRIPTYLINE HCL 10 MG CAPSULE 1 CAPSULE ORALLY DAILY TAKING LIVALO TABLET 1 TAB ORAL DAILY TAKING OXYCODONE HCL 5 MG TABLET 1 TABLET ORALLY EVERY 6 HRS PRN PAIN MDD=2 MAX 60 FOFR 30 DAYS TAKING CYCLOBENZAPRINE HCL 5 MG TABLET 1 TABLET NEEDED ORALLY BID TAKING ZOLPIDEM TARTRATE 5 MG TABLET 1 TABLET AT BEDTIME ORALLY ONCE A DAY TAKING LEVOTHYROXINE SODIUM 50 MCG TABLET 1 TABLET ON AN EMPTY STOMACH IN THE MORNING ORALLY ONCE A DAY TAKING CITALOPRAM HYDROBROMIDE 20 MG TABLET 1 TABLET ORALLY ONCE A DAY TAKING ALPRAZOLAM 0.5 MG TABLET 1 TABLET ORALLY THREE TIMES A DAY MEDICATION LIST REVIEWED AND RECONCILED WITH THE PATIENT PAST MEDICAL HISTORY HYPERLIPIDEMIA ANXIETY DEGENERATIVE DISC DISEASE INSOMNIA HYPOTHYROIDISM CATARACTS 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 ALLERGIES SULFA: HIVES: ALLERGY TAPE ADHESIVE: HIVES: ALLERGY SOCIAL HISTORY GENERAL: TOBACCO USE ARE YOU A:FORMER SMOKER HOW LONG HAS IT BEEN SINCE YOU LAST SMOKED?1-5 YEARS LUNG CANCER SCREENING SMOKING STATUS:FORMER SMOKER ALCOHOL SCREENING DID YOU HAVE A DRINK CONTAINING ALCOHOL IN THE PAST YEAR?NO POINTS0 INTERPRETATIONNEGATIVE RECREATIONAL DRUG USE DENIES. CAFFEINE 1 A DAY.. SEXUAL HX HAD SEX IN THE LAST 12 MONTHS (VAGINAL, ORAL, OR ANAL)?: NO, HAVE YOU EVER HAD AN STD?: NO. HIV / HEP-C SCREENING HIV TEST OFFERED TO PATIENT:YES HEP-C TEST OFFERED TO PATIENT:YES DIET: REGULAR. EXERCISE: WALKS. MARITAL STATUS: . [facility] [id number] [facility] LANGUAGE LANGUAGES SPOKEN:TURKMEN EDUCATION LEVEL OF EDUCATION:NOT FINISHED COLLEGE LEARNING BARRIERS / SPECIAL NEEDS CHANGE FROM LAST VISIT?NO BARRIERS TO LEARNING?NO HEARING IMPAIRED?YES :HEARING AIDES DOES NOT WEAR THEM VISION IMPAIRED?YES :CORRECTIVE LENSES COGNITIVELY IMPAIRED?YES READINESS TO LEARN?YES LEARNING PREFERENCES?NO LEARNING CAPABILITIES PRESENT?YES EMOTIONAL BARRIERS?NO SPECIAL DEVICES?YES :WHEELCHAIR PUPPY WALKER NEEDED?NO PAIN CLINIC PFS, CLERGY, PUBLIC HEALTH REFERRALS PFS REFERRAL NEEDED?NO CLERGY REFERRAL NEEDED?NO PUBLIC HEALTH REFERRAL NEEDED?NO HAS THE PATIENT BEEN EDUCATED REGARDING HIS/HER PLAN OF CARE?YES PLEASE DOCUMENT ANY ADDTIONAL DETAILS.PLEASE FREE TEXT IN THE NOTES SECTION. PROCEDURE INSTRUCTIONS HAS THE PATIENT BEEN EDUCATED REGARDING PAIN, THE RISK FOR PAIN, THE IMPORTANCE OF EFFECTIVE PAIN MANAGEMENT, AND THE PAIN ASSESSMENT PROCESS?YES ADVANCE DIRECTIVES HEALTH CARE PROXY?NO WOULD YOU LIKE MORE INFORMATION?NO DO YOU HAVE A DNR?NO WOULD YOU LIKE MORE INFORMATION?NO LIVING WILL?NO WOULD YOU LIKE MORE INFORMATION?NO POWER OF GLUE MAKER?NO WOULD YOU LIKE MORE INFORMATION?NO DOMESTIC VIOLENCE NONE. REVIEW OF SYSTEMS REVIEWED BY: PROVIDER: CAMILLE MARISCAL . CONSTITUTIONAL: ANY CHANGE IN YOUR MEDICAL CONDITION? NO . CHILLS NO . FEVER NO . INFECTION: DO YOU HAVE NEW INFECTIONS? NO . DO YOU HAVE HISTORY OF MRSA? NO . MUSCULOSKELETAL: ANY NEW PATTERNS OF PAIN OR NUMBNESS? NO . GASTROENTEROLOGY: ANY NEW CHANGE IN BOWEL CONTROL? YES, HAVE SOME CONSTIPATION, BELIEVE IT'S FROM CORTISONE . GENITOURINARY: ANY NEW CHANGE IN BLADDER CONTROL? NO . IS THERE A CHANCE YOU COULD BE ? NO . HEMATOLOGY/LYMPH: DO YOU TAKE ANY BLOOD THINNERS? (FOR EXAMPLE- COUMADIN, PLAVIX, AGGRENOX, PLATEL, PRADAXA, OR XARELTO) NO . WHEN WAS YOUR LAST DOSE? DATE: TIME: . NEUROLOGY: HAVE YOU FALLEN IN THE PAST 6 MONTHS? NO . ANY NEW EXTREMITY NUMBNESS OR WEAKNESS? NO . VERTIGO RECENT ONSET FOR ENTIRE DAY. . CARDIOLOGY: DO YOU HAVE A PACEMAKER OR DEFIBRILLATOR? NO . RESPIRATORY: HAVE YOU BEEN SICK IN THE PAST WEEK? NO . FEVER NO . FLU LIKE SYMPTOMS? NO . COUGH NO . INTEGUMENTARY: DO YOU HAVE ANY RASHES OR OPEN SORES? NO . ALLERGIC/IMMUNO: ARE YOU ALLERGIC TO SHELLFISH OR IV DYE? NO . ANY NEW ALLERGIES? NO . PSYCHIATRIC: DO YOU HAVE THOUGHTS OF HURTING YOURSELF OR SOMEONE ELSE? NO . ARE YOU ABUSED, NEGLECTED, OR IN AN UNSAFE ENVIRONMENT? NO . ENDOCRINOLOGY: ARE YOU DIABETIC? NO . OTHER: DO YOU NEED ANY PRESCRIPTIONS? NO . IF YES, PLEASE LIST: ____ . ANY NEW PROBLEMS WITH YOUR MEDICATIONS? NO . WHEN DID YOU LAST EAT? ____ . WHEN DID YOU LAST DRINK? ____ . WHAT DID YOU LAST DRINK? ____ . NAME OF PERSON DRIVING YOU HOME? ____ . DO YOU HAVE ANY OTHER QUESTIONS OR CONCERNS NO . VITAL SIGNS WT 203.8 LBS, HT 5 1/2', BMI 32.89 INDEX, BP 164/79 MM HG, HR 80 /MIN, RR 18 /MIN, TEMP 96.8 F, OXYGEN SAT % 95%, SAFE IN ENV? (Y/N) YES, NA INITIALS SC 14:09, REVIEWED BY: BRUCEBLOOD PRESSURE RECHECKED AT DISCHARGE AT 1510 LEFT MJU=209/82 AND RIGHT BXD=009/80. EXAMINATION GENERAL EXAMINATION: PSYCHALERT , ORIENTED X 3 , APPROPRIATE MOOD AND AFFECT . LUNGS:CLEAR TO AUSCULTATION BILATERALLY. HEART:1/6 SYSYTOLIC MURMUR . + CAROTID BRUIT BILATERALLY. . MUSCULOSKELETAL:MUSCLE STRENGTH TESTING 5/5 BILATERAL LOWER EXTREMITIES. TENDER OVER RIGHT SIJ . 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 PROCEDURE CODES FA211 ESTABILISHED PATIENT [facility] FACILITY CHARGE G8730 PAIN ASSESS POS TOOL F/U PLAN DOC G8427 DOC MEDS VERIFIED W/PT OR RE DISPOSITION & COMMUNICATION FOLLOW UP 2 MONTHS (REASON: BACK PAIN) ELECTRONICALLY SIGNED BY AC CHACON ON 10/17/2017 AT 12:17 PM EST DISCLAIMER : THIS IS A VISIT SUMMARY EXTRACTED FROM THE [employer] CHART. IT IS NOT A COPY OF THE [facility] PROGRESS NOTE. REGI
== END ==
LOC: M PAIN 13:45
PROVIDERS: ATTEND Nurse Practitioner Family
DX: M70.61 Trochanteric bursitis, right hip (principal); M79.1 Myalgia; E03.9 Hypothyroidism, unspecified; E78.5 Hyperlipidemia, unspecified; F41.9 Anxiety disorder, unspecified; Z79.891 Long term (current) use of opiate analgesic; Z79.899 Other long term (current) drug therapy; Z87.891 Personal history of nicotine dependence; Z88.2 Allergy status to sulfonamides; Z91.048 Other nonmedicinal substance allergy status

== ENCOUNTER 2017-11-06 15:40 | Emergency (ER) | payer MEDICARE, OTHER, BC ==
[~2017-11-06] VITALS: Ht 154.9 cm; Wt 89.5 kg
[2017-11-06] MEDS ORDERED: CITA20TA4 (15:53)
[2017-11-06] MEDS ORDERED: OXYC-517 (15:53)
[2017-11-06] MEDS ORDERED: BUPR15TASR (15:53)
--- NOTE | 2017-11-06 17:34 | REP ---
CT of the cervical spine: Axial images are acquired helical scanning and a reformatted sagittal coronal projections. Vertebral body heights and alignment are normal. The prevertebral soft tissues are normal. The facets are normally aligned, however there is facet osteoarthritis throughout the cervical spine. There is advanced degenerative disc disease at C 05/06 and C6-7 with anterior posterior osteophytes at these levels. The posterior osteophytes project into the spinal canal at these levels. The skull base, C1-C2 are unremarkable except for osteoarthritis. There are no posterior element fractures. Impression: There is degenerative disc disease at C5-6 a and C6 -7 with anterior posterior osteophytes. No fracture or listhesis. Facet osteoarthritis. Depending on symptomatology consider MRI follow up. Signed by Santi Butler MD 11/06/2017 05:25 P
--- NOTE | 2017-11-06 17:40 | REP ---
CT of the thoracic spine: Axial images are acquired helical scanning and a reformatted sagittal and coronal projections. Vertebral body heights and alignment are normal. No compression deformities. No listhesis. There is demineralization. There is moderate degenerative disc disease throughout the thoracic spine. There are anterior bridging osteophytes as a consequence throughout the mid thoracic spine. There are small posterior osteophytes at AT 03/04 projecting into the spinal canal. There are no lytic, blastic or destructive skeletal changes. Impression: Multilevel degenerative disc disease. No compression deformity or listhesis. Posterior osteophytes at T 03/04. Depending on symptomatology consider follow-up MRI. Signed by Santi Butler MD 11/06/2017 05:31 P
[2017-11-06] MEDS ORDERED: PERCOCET 5MG/325MG TAB PO ONE (18:15)
[2017-11-06] MEDS ORDERED: IBUP80TA PO (18:17)
[2017-11-06 18:49] VITALS: BP 156/71
--- NOTE | 2017-11-07 19:32 | ECGEPIP ---
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
== END 2017-11-06 18:51 | disposition home or self-care (01) ==
LOC: M ED 15:40
DX: M47.814 Spondylosis without myelopathy or radiculopathy, thoracic region (principal); M47.816 Spondylosis without myelopathy or radiculopathy, lumbar region; R03.0 Elevated blood-pressure reading, without diagnosis of hypertension; M54.30 Sciatica, unspecified side; M51.9 Unspecified thoracic, thoracolumbar and lumbosacral intervertebral disc disorder; G89.29 Other chronic pain; M81.0 Age-related osteoporosis without current pathological fracture; E03.9 Hypothyroidism, unspecified; Z87.442 Personal history of urinary calculi; Z98.890 Other specified postprocedural states; Z79.899 Other long term (current) drug therapy; Z88.1 Allergy status to other antibiotic agents; Z88.2 Allergy status to sulfonamides

== ENCOUNTER → 2017-12-01 | Outpatient (CLI) | payer MEDICARE, OTHER | LOC: M PAIN 13:00 | DX: G89.29 Other chronic pain (principal); M70.61 Trochanteric bursitis, right hip; M54.5 Low back pain; M79.1 Myalgia; E78.5 Hyperlipidemia, unspecified; F41.9 Anxiety disorder, unspecified; G47.00 Insomnia, unspecified; E03.9 Hypothyroidism, unspecified; G54.0 Brachial plexus disorders; Z79.899 Other long term (current) drug therapy; Z88.2 Allergy status to sulfonamides; Z91.048 Other nonmedicinal substance allergy status; Z87.891 Personal history of nicotine dependence | CPT/HCPCS: G0463 ==

== ENCOUNTER → 2017-12-22 | Outpatient (CLI) | payer MEDICARE, OTHER ==
[~2017-12-22] MED LIST changes: -ALPR0.5T3 PO; -AMBI5TAB PO; -ANTI DEPRESSANT; +BUPIVACAINE HCL 0.25% 10 ML VIAL As Ordered; +BUPIVACAINE HCL 0.25% 30 ML VIAL As Ordered; -CALC600T60 PO; -LEVO25TA5 PO; -LIVA2TAB PO; -MULTCAP11 PO; -NORT10SO PO; -PAIN MEDICATION; -SUPECAP PO; +TRIAMCINOLONE ACETONIDE SUSP 40 MG/ML VIAL (J3301) As Ordered; -VITA500C24 PO; -VITA500T88 PO; -cipro PO; +diazePAM 5 MG TAB As Ordered; +diphenhydrAMINE 25 MG CAP As Ordered; +oxyCODONE 5MG TAB As Ordered; -percocet PO
== END ==
LOC: M PAIN 15:15
DX: G89.29 Other chronic pain (principal); M25.511 Pain in right shoulder; M25.512 Pain in left shoulder; M54.5 Low back pain; M79.1 Myalgia; E78.5 Hyperlipidemia, unspecified; F41.9 Anxiety disorder, unspecified; G47.00 Insomnia, unspecified; E03.9 Hypothyroidism, unspecified; Z79.899 Other long term (current) drug therapy; Z91.048 Other nonmedicinal substance allergy status; Z88.2 Allergy status to sulfonamides; Z87.891 Personal history of nicotine dependence
CPT/HCPCS: J3301

== ENCOUNTER → 2018-01-10 | Outpatient (CLI) | payer MEDICARE, BC, OTHER ==
[2018-01-10 16:34] LABS: RHEUMATOID FACTOR QUANT < 10.0 IU/ML (0-15.0)
[2018-01-10 17:04] LABS: ERYTHROCYTE SEDIMENTATION RATE 33 mm/hr (0-30)
[2018-01-13 10:18] LABS: DRVV SCREEN 74.9 SEC
[2018-01-13 10:20] LABS: PTT LUPUS TYPE ANTICOAG SCREEN 1.7 (0-1.2)
[2018-01-13 10:27] LABS: DRVV CONFIRM 37.2 SEC
[2018-01-15 08:06] LABS: HEXAGONAL PHASE PHOSPHOLIPID 38 sec (0-11)
[2018-01-18 00:06] LABS: ANA (HEP2) Negative (.); HLA-B27 Negative (.)
== END ==
LOC: M LAB 15:27
DX: M79.1 Myalgia (principal); M12.88 Other specific arthropathies, not elsewhere classified, other specified site; E03.9 Hypothyroidism, unspecified; Z79.891 Long term (current) use of opiate analgesic; Z79.899 Other long term (current) drug therapy; Z87.891 Personal history of nicotine dependence; Z88.8 Allergy status to other drugs, medicaments and biological substances; Z91.048 Other nonmedicinal substance allergy status
CPT/HCPCS: 85730

== ENCOUNTER → 2018-01-26 | Outpatient (CLI) | payer MEDICARE, OTHER, BC ==
[~2018-01-26] MED LIST changes: -BUPIVACAINE HCL 0.25% 10 ML VIAL As Ordered; +ISOVUE-M 300 61% 15ML VIAL (Q9967) As Ordered; +LIDOCAINE 1% SDV INJ 30 ML VIAL As Ordered
== END ==
LOC: M PAIN 11:45
DX: G89.29 Other chronic pain (principal); M47.816 Spondylosis without myelopathy or radiculopathy, lumbar region; M47.817 Spondylosis without myelopathy or radiculopathy, lumbosacral region; E78.5 Hyperlipidemia, unspecified; F41.9 Anxiety disorder, unspecified; G47.00 Insomnia, unspecified; H26.9 Unspecified cataract; E03.9 Hypothyroidism, unspecified; Z86.711 Personal history of pulmonary embolism; Z87.442 Personal history of urinary calculi
CPT/HCPCS: J3301

== ENCOUNTER → 2018-02-09 | Outpatient (CLI) | payer MEDICARE, OTHER, BC | LOC: M PAIN 13:00 | DX: M47.816 Spondylosis without myelopathy or radiculopathy, lumbar region (principal); M47.817 Spondylosis without myelopathy or radiculopathy, lumbosacral region; E78.5 Hyperlipidemia, unspecified; F41.9 Anxiety disorder, unspecified; G47.00 Insomnia, unspecified; E03.9 Hypothyroidism, unspecified; Z79.891 Long term (current) use of opiate analgesic; Z79.899 Other long term (current) drug therapy; Z86.711 Personal history of pulmonary embolism; Z87.891 Personal history of nicotine dependence; Z88.2 Allergy status to sulfonamides; Z91.048 Other nonmedicinal substance allergy status | CPT/HCPCS: G0463 ==

== ENCOUNTER → 2018-03-30 | Outpatient (CLI) | payer MEDICARE, OTHER, BC | LOC: M WUC 18:17 | DX: S29.011A Strain of muscle and tendon of front wall of thorax, initial encounter (principal); X58.XXXA Exposure to other specified factors, initial encounter; Y92.89 Other specified places as the place of occurrence of the external cause; Y93.9 Activity, unspecified; Y99.9 Unspecified external cause status | CPT/HCPCS: 71101 ==

== ENCOUNTER → 2018-07-27 | Outpatient (CLI) | payer MEDICARE, OTHER, BC | LOC: M RAD 13:12 | DX: G45.3 Amaurosis fugax (principal) | CPT/HCPCS: 93880 ==

== ENCOUNTER → 2018-08-30 | Outpatient (CLI) | payer MEDICARE, BC, OTHER ==
[2018-08-30 17:06] LABS: BLOOD UREA NITROGEN 17 MG/DL (7-18)
[2018-08-30 17:06] LABS: CREATININE FOR GFR 0.95 MG/DL (0.55-1.30); GLOMERULAR FILTRATION RATE > 60.0 (>39)
== END ==
LOC: M LAB 15:35
DX: H53.122 Transient visual loss, left eye (principal)
CPT/HCPCS: 82565

== ENCOUNTER → 2018-08-31 | Outpatient (CLI) | payer MEDICARE, BC, OTHER ==
[~2018-08-31] MED LIST changes: -BUPIVACAINE HCL 0.25% 30 ML VIAL As Ordered; -ISOVUE-M 300 61% 15ML VIAL (Q9967) As Ordered; -LIDOCAINE 1% SDV INJ 30 ML VIAL As Ordered; +PROHANCE 279.3MG/ML 15ML VIAL (A9576) As Ordered; +PROHANCE 279.3MG/ML 5ML VIAL (A9576) As Ordered; -TRIAMCINOLONE ACETONIDE SUSP 40 MG/ML VIAL (J3301) As Ordered; -diazePAM 5 MG TAB As Ordered; -diphenhydrAMINE 25 MG CAP As Ordered; -oxyCODONE 5MG TAB As Ordered
== END ==
LOC: M RAD 12:01
DX: H53.122 Transient visual loss, left eye (principal); I67.82 Cerebral ischemia; I63.59 Cerebral infarction due to unspecified occlusion or stenosis of other cerebral artery
CPT/HCPCS: A9576

== ENCOUNTER → 2018-09-20 | Outpatient (CLI) | payer MEDICARE, BC, OTHER ==
[2018-09-20 14:16] LABS: IMMUNOGLOBULIN G 643 MG/DL (681-1648); IMMUNOGLOBULIN M 236 MG/DL (40-230)
[2018-09-24 00:08] LABS: STREP PNEUMO TYPE 1 7.8 ug/mL (>1.3); STREP PNEUMO TYPE 12F 2.6 ug/mL (>1.3); STREP PNEUMO TYPE 14 >25.8 ug/mL (>1.3); STREP PNEUMO TYPE 18C 9.8 ug/mL (>1.3); STREP PNEUMO TYPE 19F 7.1 ug/mL (>1.3); STREP PNEUMO TYPE 23F 2.2 ug/mL (>1.3); STREP PNEUMO TYPE 3 5.9 ug/mL (>1.3); STREP PNEUMO TYPE 4 0.4 ug/mL (>1.3); STREP PNEUMO TYPE 6B 3.8 ug/mL (>1.3); STREP PNEUMO TYPE 7F 6.2 ug/mL (>1.3); STREP PNEUMO TYPE 8 1.4 ug/mL (>1.3); STREP PNEUMO TYPE 9N 10.3 ug/mL (>1.3); STREP PNEUMO TYPE 9V 24.1 ug/mL (>1.3)
== END ==
LOC: M LAB 12:13
DX: B99.9 Unspecified infectious disease (principal)
CPT/HCPCS: 82784

== ENCOUNTER → 2018-10-08 | Outpatient (CLI) | payer MEDICARE, BC, OTHER ==
[2018-10-08 17:08] LABS: BASO % 0.6 % (0.0-1.0); EOS # 0.2 10^3/uL (0.0-0.50); EOS % 2.2 % (0.0-3.0); HEMATOCRIT 38.8 % (36.0-47.0); HEMOGLOBIN 12.2 g/dl (12.0-15.5); IMMATURE GRANULOCYTE % 0.3 % (0-3.0); LYMPH # 1.9 10^3/uL (1.5-4.5); LYMPH % 27.8 % (24.0-44.0); MEAN CORPUSCULAR HEMOGLOBIN 28.6 pg (27.0-33.0); MEAN CORPUSCULAR HGB CONC 31.4 g/dl (32.0-36.5); MEAN CORPUSCULAR VOLUME 91.1 fl (80.0-96.0); MONO # 0.6 10^3/uL (0.0-0.8); MONO % 8.8 % (0.0-5.0); NEUTROPHILS % 60.3 % (36.0-66.0); PLATELET COUNT, AUTOMATED 169 10^3/uL (150-450); RED BLOOD COUNT 4.26 10^6/uL (4.00-5.40); RED CELL DISTRIBUTION WIDTH 12.9 % (11.5-14.5); WHITE BLOOD COUNT 6.7 10^3/uL (4.0-10.0)
[2018-10-08 17:25] LABS: ALBUMIN 3.7 GM/DL (3.2-5.2); ALBUMIN/GLOBULIN RATIO 1.32 (1.00-1.93); ALKALINE PHOSPHATASE 43 U/L (45-117); ALT/SGPT 17 U/L (12-78); ANION GAP 7 MEQ/L (8-16); AST/SGOT 12 U/L (7-37); BILIRUBIN,TOTAL 0.4 MG/DL (0.2-1.0); BLOOD UREA NITROGEN 20 MG/DL (7-18); CALCIUM LEVEL 8.7 MG/DL (8.8-10.2); CARBON DIOXIDE LEVEL 29 MEQ/L (21-32); CHLORIDE LEVEL 106 MEQ/L (98-107); CHOLESTEROL LEVEL 174 MG/DL (<200); CHOLESTEROL RISK RATIO 2.558 (<5); CREATININE FOR GFR 0.95 MG/DL (0.55-1.30); GLOMERULAR FILTRATION RATE > 60.0 (>39); GLUCOSE, FASTING 91 MG/DL (70-100); HDL CHOLESTEROL 68 MG/DL (>40); LDL CHOLESTEROL 85 MG/DL (<100); NON-HDL-C 106 MG/DL; POTASSIUM SERUM 4.4 MEQ/L (3.5-5.1); RHEUMATOID FACTOR QUANT < 10.0 IU/ML (<15.0); SODIUM LEVEL 142 MEQ/L (136-145); TOTAL PROTEIN 6.5 GM/DL (6.4-8.2); TRIGLYCERIDES LEVEL 104 MG/DL (<150)
[2018-10-08 17:32] LABS: ERYTHROCYTE SEDIMENTATION RATE 32 mm/hr (0-30); ESTIMATED AVERAGE GLUCOSE 117 MG/DL (60-110); HEMOGLOBIN A1c 5.7 %
[2018-10-11 10:14] LABS: DRVV SCREEN 69.7 SEC
[2018-10-11 10:23] LABS: PTT LUPUS TYPE ANTICOAG SCREEN 1.7 (0-1.2)
[2018-10-11 10:34] LABS: DRVV CONFIRM 35.9 SEC; LUPUS CONFIRM RATIO 0.9
[2018-10-11 10:37] LABS: NORMALIZED RATIO 1.89 (0.00-1.20)
[2018-10-14 08:19] LABS: HEXAGONAL PHASE PHOSPHOLIPID 37 sec (0-11)
[2018-10-17 14:09] LABS: ANTI DOUBLE STRAND-DNA AB 1 IU/mL (0-9); ANTI THROMBIN 3 ANTIGEN IMMUNO 110 % (72-124); ANTI THROMBIN 3 FUNCT ACTIVITY 104 % (75-135); ANTINUCLEAR ANTIBODIES DIRECT Negative (Negative); CARDIOLIPIN IGA ANTIBODY >150 APL U/mL (0-11); CARDIOLIPIN IGG ANTIBODY 34 GPL U/mL (0-14); CARDIOLIPIN IGM ANTIBODY >150 MPL U/mL (0-12); PROTEIN C FUNCTIONAL ACTIVITY 140 % (73-180); PROTEIN S FUNCTIONAL ACTIVITY 44 % (63-140); SJOGREN'S ANTI SS-A <0.2 AI (0.0-0.9); SJOGREN'S ANTI SS-B <0.2 AI (0.0-0.9)
== END ==
LOC: M WUC 13:22
DX: I63.9 Cerebral infarction, unspecified (principal)
CPT/HCPCS: 84443

== ENCOUNTER → 2018-10-15 | Outpatient (CLI) | payer MEDICARE, BC, OTHER | LOC: M WUC 13:51 | DX: R53.83 Other fatigue (principal) | CPT/HCPCS: 86665 ==

== ENCOUNTER 2018-10-18 08:07 | Emergency (ER) | payer MEDICARE, BC, OTHER ==
[2018-10-18] MEDS: KETOROLAC 30 MG/ML VIAL (J1885) IV (09:08)
[2018-10-18] MEDS: NS 1,000 ML IV (09:08)
[2018-10-18] MEDS: ONDANSETRON 4MG/2ML VIAL (J2405) IV (09:08)
[2018-10-18] MEDS: MORPHINE 2 MG/ML 1ML SYRINGE (J2270) IV ×2 (09:09→10:06)
[2018-10-18 09:11] LABS: BASO % 0.4 % (0.0-1.0); EOS # 0.2 10^3/uL (0.0-0.50); EOS % 1.7 % (0.0-3.0); HEMATOCRIT 39.5 % (36.0-47.0); HEMOGLOBIN 12.6 g/dl (12.0-15.5); IMMATURE GRANULOCYTE % 0.5 % (0-3.0); LYMPH # 1.8 10^3/uL (1.5-4.5); LYMPH % 17.3 % (24.0-44.0); MEAN CORPUSCULAR HEMOGLOBIN 28.8 pg (27.0-33.0); MEAN CORPUSCULAR HGB CONC 31.9 g/dl (32.0-36.5); MEAN CORPUSCULAR VOLUME 90.2 fl (80.0-96.0); MONO # 0.8 10^3/uL (0.0-0.8); MONO % 7.7 % (0.0-5.0); NEUTROPHILS # 7.3 10^3/uL (1.8-7.7); NEUTROPHILS % 72.4 % (36.0-66.0); PLATELET COUNT, AUTOMATED 172 10^3/uL (150-450); RED BLOOD COUNT 4.38 10^6/uL (4.00-5.40); RED CELL DISTRIBUTION WIDTH 12.7 % (11.5-14.5); WHITE BLOOD COUNT 10.1 10^3/uL (4.0-10.0)
[2018-10-18 09:16] LABS: CALCIUM OXALATE CRYSTALS RFX SMALL; KETONE, URINE AUTO RFX NEGATIVE (NEGATIVE); MUCUS, URINE RFX SMALL (NEGATIVE); NITRITE, URINE AUTO RFX NEGATIVE (NEGATIVE); RBC, URINE AUTO RFX 58 /HPF (0-3); SPECIFIC GRAVITY UR AUTO RFX 1.026 (1.002-1.035); SQUAM EPITHELIAL CELL UR AURFX 1 /HPF (0-6)
[2018-10-18 09:45] LABS: ANION GAP 8 MEQ/L (8-16); BLOOD UREA NITROGEN 23 MG/DL (7-18); CALCIUM LEVEL 8.8 MG/DL (8.8-10.2); CARBON DIOXIDE LEVEL 28 MEQ/L (21-32); CHLORIDE LEVEL 106 MEQ/L (98-107); CREATININE FOR GFR 1.16 MG/DL (0.55-1.30); GLOMERULAR FILTRATION RATE 48.2 (>39); GLUCOSE, FASTING 116 MG/DL (70-100); POTASSIUM SERUM 4.5 MEQ/L (3.5-5.1); SODIUM LEVEL 142 MEQ/L (136-145)
[2018-10-18 10:19] LABS: LEUKOCYTE ESTERASE UR AUTO RFX 2+ (NEGATIVE); WBC, URINE AUTO RFX 39 /HPF (0-3)
[2018-10-18] MEDS: CIPROFLOXACIN 400 MG in APPROPRIATE DILUENT 1 EA IV (10:59)
[2018-10-18] MEDS: PERCOCET 5MG/325MG TAB PO (12:15)
== END 2018-10-18 12:30 | disposition home or self-care (01) ==
LOC: M ED 08:07
DX: N20.2 Calculus of kidney with calculus of ureter (principal); N13.4 Hydroureter; R11.2 Nausea with vomiting, unspecified; Z87.442 Personal history of urinary calculi; Z86.73 Personal history of transient ischemic attack (TIA), and cerebral infarction without residual deficits; Z88.2 Allergy status to sulfonamides; Z91.048 Other nonmedicinal substance allergy status; Z79.899 Other long term (current) drug therapy
CPT/HCPCS: J2405

== ENCOUNTER → 2018-10-24 | Outpatient (CLI) | payer MEDICARE, BC, OTHER | LOC: M SMT 09:07 | DX: N28.89 Other specified disorders of kidney and ureter (principal); N20.0 Calculus of kidney | CPT/HCPCS: 74018; G0463 ==

== ENCOUNTER → 2018-10-31 | Outpatient (CLI) | payer MEDICARE, BC, OTHER ==
[2018-10-31 14:38] LABS: PARTIAL THROMBOPLASTIN TIME 31.7 SECONDS (25.4-37.6); PROTHROMBIN TIME 12.2 SECONDS (12.1-14.4)
[2018-10-31 14:41] LABS: AMORPHOUS SEDIMENT SMALL (NEGATIVE); APPEARANCE, URINE CLOUDY (CLEAR); BACTERIA, URINE AUTO 1+ (NEGATIVE); BILIRUBIN, URINE AUTO NEGATIVE (NEGATIVE); BLOOD, URINE BLOOD NEGATIVE (NEGATIVE); CALCIUM OXALATE CRYSTALS LARGE; COLOR, URINE AMBER (YELLOW); GLUCOSE, URINE (UA) AUTO NEGATIVE (NEGATIVE); KETONE, URINE AUTO TRACE mg/dL (NEGATIVE); LEUKOCYTE ESTERASE, URINE AUTO NEGATIVE (NEGATIVE); MUCUS, URINE SMALL (NEGATIVE); NITRITE, URINE AUTO NEGATIVE (NEGATIVE); PROTEIN, URINE AUTO NEGATIVE (NEGATIVE); RBC, URINE AUTO 3 /HPF (0-3); SPECIFIC GRAVITY URINE AUTO 1.019 (1.002-1.035); SQUAMOUS EPITHELIAL CELL UR AU 0 /HPF (0-6); UROBILINOGEN, URINE AUTO 0.2 mg/dL (0.0-2.0); WBC, URINE AUTO 3 /HPF (0-3)
== END ==
LOC: M LAB 13:37
DX: Z01.818 Encounter for other preprocedural examination (principal); M47.899 Other spondylosis, site unspecified; N20.0 Calculus of kidney
CPT/HCPCS: 71046

== ENCOUNTER 2018-11-07 23:14 | Emergency (ER) | payer MEDICARE, BC, OTHER ==
[~2018-11-07] VITALS: Ht 152.4 cm; Wt 91.4 kg
[~2018-11-07 23:14] MED LIST changes: +ALPR0.5T3 PO; +AMBI5TAB PO; +ANTI DEPRESSANT; +ASPI1TAB PO; +BUPR150T3 PO; +BUPR15TASR; +CALC600T60 PO; +CIPR-250 PO; +CITA20TA4; +FLOM0.4C39 PO; +IBUP-1022 PO; +IBUP80TA PO; +LEVO25TA5 PO; +LEVO75TA4 PO; +LIVA2TAB PO; +MULT1TAB10 PO; +MULTCAP11 PO; +NORT10SO PO; +OXYC-517; +PAIN MEDICATION; +PERC5TAB12 PO; -PROHANCE 279.3MG/ML 15ML VIAL (A9576) As Ordered; -PROHANCE 279.3MG/ML 5ML VIAL (A9576) As Ordered; +SUPECAP PO; +VITA100067 PO; +VITA500C24 PO; +VITA500T88 PO; +VITATAB73 PO; +cipro PO; +percocet PO
[2018-11-08] MEDS ORDERED: ONDANSETRON 4MG/2ML VIAL (J2405) IV ONE (01:00)
[2018-11-08] MEDS ORDERED: NS 500 ML IV ONE (01:00)
[2018-11-08] MEDS ORDERED: KETOROLAC 30 MG/ML VIAL (J1885) IV ONE (01:00)
[2018-11-08] MEDS: MORPHINE 4 MG/ML 1ML VIAL/SYRINGE (J2270) IV PRN ×2 (01:14→04:18)
[2018-11-08 01:15] LABS: BASO % 0.3 % (0.0-1.0); EOS # 0.2 10^3/uL (0.0-0.50); EOS % 1.6 % (0.0-3.0); HEMATOCRIT 41.9 % (36.0-47.0); HEMOGLOBIN 13.5 g/dl (12.0-15.5); LYMPH # 1.8 10^3/uL (1.5-4.5); LYMPH % 15.8 % (24.0-44.0); MEAN CORPUSCULAR HEMOGLOBIN 29.1 pg (27.0-33.0); MEAN CORPUSCULAR HGB CONC 32.2 g/dl (32.0-36.5); MEAN CORPUSCULAR VOLUME 90.3 fl (80.0-96.0); MONO # 0.9 10^3/uL (0.0-0.8); MONO % 7.7 % (0.0-5.0); NEUTROPHILS # 8.6 10^3/uL (1.8-7.7); NEUTROPHILS % 74.3 % (36.0-66.0); PLATELET COUNT, AUTOMATED 198 10^3/uL (150-450); RED BLOOD COUNT 4.64 10^6/uL (4.00-5.40); WHITE BLOOD COUNT 11.6 10^3/uL (4.0-10.0)
[2018-11-08 02:04] LABS: ALBUMIN 3.7 GM/DL (3.2-5.2); BILIRUBIN,DIRECT 0.1 MG/DL (0.0-0.2); BILIRUBIN,TOTAL 0.4 MG/DL (0.2-1.0); CREATININE FOR GFR 1.22 MG/DL (0.55-1.30); GLOMERULAR FILTRATION RATE 45.5 (>39); POTASSIUM SERUM 4.8 MEQ/L (3.5-5.1); TOTAL PROTEIN 6.8 GM/DL (6.4-8.2)
[2018-11-08] MEDS ORDERED: NEOSPORIN OINT 0.9 GM PKT (FLOOR STOCK) As Ordered ONE (02:44)
[2018-11-08 04:30] VITALS: BP 137/61
[2018-11-08] MEDS ORDERED: HYDROmorphone 2 MG TAB PO ONE (04:45)
== END 2018-11-08 04:55 | disposition home or self-care (01) ==
LOC: M ED 23:14
DX: N20.1 Calculus of ureter (principal); Z79.899 Other long term (current) drug therapy; Z79.82 Long term (current) use of aspirin; Z88.1 Allergy status to other antibiotic agents; Z88.2 Allergy status to sulfonamides; Z91.048 Other nonmedicinal substance allergy status
CPT/HCPCS: 80048; 80076; 81001; 83690; 85025; 87086; 96361; 96374; 96375; 96376; 99284; J1885; J2270; J2405

== ENCOUNTER 2018-11-08 10:20 | Day surgery (SDC) | payer MEDICARE, BC, OTHER ==
[~2018-11-08 10:20] MED LIST changes: -ALPR0.5T3 PO; -AMBI5TAB PO; -ANTI DEPRESSANT; -ASPI1TAB PO; -BUPR150T3 PO; -BUPR15TASR; -CALC600T60 PO; -CIPR-250 PO; -CITA20TA4; -FLOM0.4C39 PO; -IBUP-1022 PO; -IBUP80TA PO; -LEVO25TA5 PO; -LEVO75TA4 PO; +LIDOCAINE 1% MDV 20ML VIAL SQ; -LIVA2TAB PO; -MULT1TAB10 PO; -MULTCAP11 PO; -NORT10SO PO; -OXYC-517; -PAIN MEDICATION; -PERC5TAB12 PO; -SUPECAP PO; -VITA100067 PO; -VITA500C24 PO; -VITA500T88 PO; -VITATAB73 PO; -cipro PO; -percocet PO
[2018-11-08] MEDS ORDERED: ceFAZolin 2 GM/D5W 50 ML IV BAG (J0690 PER 500MG) As Ordered (10:44)
[2018-11-08] MEDS ORDERED: PROPOFOL 200 MG/20 ML VIAL As Ordered (10:55)
[2018-11-08] MEDS ORDERED: LIDOCAINE 2% INJ 100 MG/5 ML SDV (FOR ANES.) As Ordered (10:55)
[2018-11-08] MEDS: LR 1,000 ML IV (10:55)
[2018-11-08] MEDS ORDERED: MIDAZOLAM INJ 2 MG/2 ML VIAL (J2250) As Ordered (10:56)
[2018-11-08] MEDS ORDERED: ONDANSETRON 4MG/2ML VIAL (J2405) As Ordered (10:56)
[2018-11-08] MEDS ORDERED: dexameTHASONE 4 MG/ML 1ML VIAL (J1100) As Ordered ×2 (10:56)
[2018-11-08] MEDS ORDERED: fentaNYL 100 MCG/2 ML INJECTION (J3010) As Ordered (10:57)
[2018-11-08] MEDS ORDERED: KETOROLAC 60 MG/2 ML VIAL (J1885) As Ordered (11:10)
[2018-11-08] MEDS ORDERED: SUGAMMADEX SODIUM 500 MG/5 ML VIAL (BRIDION) As Ordered (11:10)
[2018-11-08] MEDS: CONRAY-60 60% 50ML VIAL (Q9961) As Ordered (13:53)
[2018-11-08] MEDS ORDERED: METOCLOPRAMIDE INJ 10MG/2ML VIAL (J2765) IV (15:00)
[2018-11-08] MEDS ORDERED: LR 1,000 ML IV (15:00)
[2018-11-08] MEDS ORDERED: fentaNYL 100 MCG/2 ML INJECTION (J3010) IV (15:00)
[2018-11-08] MEDS ORDERED: PERCOCET 5MG/325MG TAB PO (15:00)
[2018-11-08] MEDS ORDERED: ONDANSETRON 4MG/2ML VIAL (J2405) IV (15:00)
[2018-11-08] MEDS ORDERED: MEPERIDINE INJ 25 MG/ML VIAL (J2175) IV (15:00)
[2018-11-08] MEDS: PERCOCET 5MG/325MG TAB PO (15:07)
== END 2018-11-08 17:10 | disposition home or self-care (01) ==
LOC: M SDC 10:20
DX: N20.0 Calculus of kidney (principal); E03.9 Hypothyroidism, unspecified; E78.5 Hyperlipidemia, unspecified; F41.9 Anxiety disorder, unspecified; F33.1 Major depressive disorder, recurrent, moderate; G47.00 Insomnia, unspecified; G54.0 Brachial plexus disorders; K58.9 Irritable bowel syndrome, unspecified; M12.9 Arthropathy, unspecified; M54.5 Low back pain; M54.2 Cervicalgia; M54.6 Pain in thoracic spine; G47.33 Obstructive sleep apnea (adult) (pediatric); Z88.2 Allergy status to sulfonamides; Z91.048 Other nonmedicinal substance allergy status; Z79.899 Other long term (current) drug therapy; Z79.82 Long term (current) use of aspirin; Z96.1 Presence of intraocular lens; Z86.711 Personal history of pulmonary embolism; Z86.73 Personal history of transient ischemic attack (TIA), and cerebral infarction without residual deficits; Z86.19 Personal history of other infectious and parasitic diseases
CPT/HCPCS: 52356

== ENCOUNTER → 2019-02-01 | Outpatient (REF) | payer MEDICARE, BC, OTHER ==
[~2019-02-01] MED LIST changes: +ALPR0.5T3 PO; +AMBI5TAB PO; +ANTI DEPRESSANT; +ASPI1TAB PO; +BUPR150T3 PO; +BUPR15TASR; +CALC600T60 PO; +CIPR-250 PO; +CITA20TA4; +FLOM0.4C39 PO; +IBUP-1022 PO; +IBUP80TA PO; +LEVO25TA5 PO; +LEVO75TA4 PO; -LIDOCAINE 1% MDV 20ML VIAL SQ; +LIVA2TAB PO; +MULT1TAB10 PO; +MULTCAP11 PO; +NORT10SO PO; +OXYC-517; +PAIN MEDICATION; +PERC5TAB12 PO; +SUPECAP PO; +VITA100067 PO; +VITA500C24 PO; +VITA500T88 PO; +VITATAB73 PO; +cipro PO; +percocet PO
[2019-02-04 00:06] LABS: CARDIOLIPIN IGA ANTIBODY <9 APL U/mL (0-11); CARDIOLIPIN IGG ANTIBODY 34 GPL U/mL (0-14); CARDIOLIPIN IGM ANTIBODY >150 MPL U/mL (0-12)
[2019-02-04 10:27] LABS: BETA-2 GLYCOPROTEIN I ABY IGA 150 (0-25); BETA-2 GLYCOPROTEIN I ABY IGG 40 (0-20); BETA-2 GLYCOPROTEIN I ABY IGM 17 (0-32)
[2019-02-08 10:45] LABS: DRVV SCREEN 105.2 SEC
[2019-02-08 10:50] LABS: PTT LUPUS TYPE ANTICOAG SCREEN 2.5 (0-1.2)
[2019-02-08 10:57] LABS: DRVV CONFIRM 45.5 SEC; LUPUS CONFIRM RATIO 1.2
[2019-02-08 11:00] LABS: NORMALIZED RATIO 2.08 (0.00-1.20)
== END ==
LOC: M LABNEURO 14:04
PROVIDERS: ATTEND Internal Medicine Rheumatology
DX: D68.61 Antiphospholipid syndrome (principal)

== ENCOUNTER → 2019-03-02 | Outpatient (CLI) | payer MEDICARE, OTHER ==
[~2019-03-02] MED LIST changes: -ASPI1TAB PO; +ASPI81TA26 PO; -CITA20TA4; +CITA20TA6
--- NOTE | 2019-03-03 00:39 | ECWPNPC ---
PATIENT NAME: NIKOLAY HAMILTON : 1940 GENDER: FEMALE VISIT DATE: 03/02/2019 DISCHARGE DATE: 03/02/19 1318 VISIT LOCKED DATE TIME: PHYSICIAN: NABEEL LITTLE RESOURCE: NABEEL LITTLE REASON FOR APPOINTMENT 1. BACK/NECK PAIN HISTORY OF PRESENT ILLNESS HISTORY OF PRESENT ILLNESS: PAIN THE PATIENT DESCRIBES THE PAINDURING THE LAST MONTH SEVERITY - PAIN SCORE OF8/10 78 YR OLD FEMALE WITH HX OF CHRONIC LOW BACK PAIN. 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 SHE IS UNDER CARE OF NEUROLOGY.SHE SAYS HER PCP HAS MANAGED TO STABILISE HER INR TO 2.5. FALL RISK SCREENING: SCREENING :NO FALLS REPORTED IN THE LAST YEAR CURRENT MEDICATIONS TAKING ASPIR-81 81 MG TABLET DELAYED RELEASE 1 TABLET ORALLY ONCE A DAY TAKING NORTRIPTYLINE HCL 10 MG CAPSULE 1 CAPSULE ORALLY DAILY TAKING LIVALO 1 MG TABLET 2 TAB ORAL DAILY TAKING ZOLPIDEM TARTRATE 5 MG TABLET 1 TABLET AT BEDTIME ORALLY ONCE A DAY TAKING LEVOTHYROXINE SODIUM 75 MCG TABLET 1 TABLET ON AN EMPTY STOMACH IN THE MORNING ORALLY ONCE A DAY TAKING CITALOPRAM HYDROBROMIDE 20 MG TABLET 1 TABLET ORALLY ONCE A DAY TAKING ALPRAZOLAM 0.5 MG TABLET 1 TABLET ORALLY THREE TIMES A DAY TAKING BUPROPION HCL ER (XL) 150 MG TABLET EXTENDED RELEASE 24 HOUR 1 TABLET IN THE MORNING ORALLY ONCE A DAY TAKING SUPER B COMPLEX TAKING VITAMIN D (ERGOCALCIFEROL) 2000 UNIT CAPSULE ORALLY TAKING MULTI FOR HER 50+ - TABLET ORALLY TAKING WARFARIN SODIUM 3 MG TABLET 1.5 TABLETS ORALLY DIRECTED DISCONTINUED TAMSULOSIN HCL 0.4 MG CAPSULE 1 CAPSULE ORALLY ONCE A DAY DISCONTINUED PERCOCET 5-325 MG TABLET 1 TABLET ORALLY EVERY 6 HRS NEEDED FOR PAIN (MDD 4) DISCONTINUED OXYBUTYNIN CHLORIDE 5 MG TABLET 1 TABLET ORALLY THREE TIMES DAILY NEEDED FOR BLADDER SPASMS DISCONTINUED CIPRO 500 MG TABLET 1 TABLET ORALLY EVERY 12 HRS DISCONTINUED CYCLOBENZAPRINE HCL 5 MG TABLET 1 TABLET NEEDED ORALLY BID DISCONTINUED OXYCODONE HCL 5 MG TABLET 1 TABLET ORALLY EVERY 6 HRS PRN PAIN MDD=2 MAX 60 FOFR 30 DAYS, NOTES: AWHILE AGO / WEEKS DISCONTINUED MELOXICAM 7.5 MG TABLET 1 TABLET ORALLY BID MEDICATION LIST REVIEWED AND RECONCILED WITH THE PATIENT PAST MEDICAL HISTORY HYPERLIPIDEMIA ANXIETY DEGENERATIVE DISC DISEASE INSOMNIA HYPOTHYROIDISM CATARACTS 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 1DAUGHTER(S) . BROTHER FROM COLON\\/PANCREATIC CANCER. SOCIAL HISTORY GENERAL: TOBACCO USE ARE YOU A:FORMER SMOKER HOW LONG HAS IT BEEN SINCE YOU LAST SMOKED?1-5 YEARS LUNG CANCER SCREENING SMOKING STATUS:FORMER SMOKER ALCOHOL SCREENING DID YOU HAVE A DRINK CONTAINING ALCOHOL IN THE PAST YEAR?NO POINTS0 INTERPRETATIONNEGATIVE RECREATIONAL DRUG USE DENIES. CAFFEINE 1 A DAY.. SEXUAL HX HAD SEX IN THE LAST 12 MONTHS (VAGINAL, ORAL, OR ANAL)?: NO, HAVE YOU EVER HAD AN STD?: NO. 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 DIET: REGULAR. EXERCISE: WALKS. MARITAL STATUS: . OTHERS AT HOME: NONE. PAIN CLINIC PFS, CLERGY, PUBLIC HEALTH REFERRALS PFS REFERRAL NEEDED?NO CLERGY REFERRAL NEEDED?NO PUBLIC HEALTH REFERRAL NEEDED?NO HAS THE PATIENT BEEN EDUCATED REGARDING HIS/HER PLAN OF CARE?YES PLEASE DOCUMENT ANY ADDTIONAL DETAILS.PLEASE FREE TEXT IN THE NOTES SECTION. PROCEDURE INSTRUCTIONS HAS THE PATIENT BEEN EDUCATED REGARDING PAIN, THE RISK FOR PAIN, THE IMPORTANCE OF EFFECTIVE PAIN MANAGEMENT, AND THE PAIN ASSESSMENT PROCESS?YES ADVANCE DIRECTIVE ADVANCE DIRECTIVE DISCUSSED WITH PATIENT:YES HCP ZOYA KHAN [phone] LENARD DERAS REVIEWED 02/09/18 1325 LAS. HOSPITALIZATION/MAJOR DIAGNOSTIC PROCEDURE SURGERY RELATED ONLY REVIEW OF SYSTEMS REVIEWED BY: PROVIDER: . CONSTITUTIONAL: ANY CHANGE IN YOUR MEDICAL CONDITION? NO . CHILLS NO . FEVER YES . INFECTION: DO YOU HAVE NEW INFECTIONS? YES . DO YOU HAVE HISTORY OF MRSA? NO . MUSCULOSKELETAL: ANY NEW PATTERNS OF PAIN OR NUMBNESS? NO . GASTROENTEROLOGY: ANY NEW CHANGE IN BOWEL CONTROL? NO . GENITOURINARY: ANY NEW CHANGE IN BLADDER CONTROL? NO . IS THERE A CHANCE YOU COULD BE ? NO . HEMATOLOGY/LYMPH: DO YOU TAKE ANY BLOOD THINNERS? (FOR EXAMPLE- COUMADIN, PLAVIX, AGGRENOX, PLATEL, PRADAXA, OR XARELTO) YES . WHEN WAS YOUR LAST DOSE? DATE: TIME: @1120 <@1120> . NEUROLOGY: HAVE YOU FALLEN IN THE PAST 12 MONTHS? NO . ANY NEW EXTREMITY NUMBNESS OR WEAKNESS? NO . CARDIOLOGY: DO YOU HAVE A PACEMAKER OR DEFIBRILLATOR? NO . RESPIRATORY: HAVE YOU BEEN SICK IN THE PAST WEEK? NO . FEVER NO . FLU LIKE SYMPTOMS? NO . COUGH NO . INTEGUMENTARY: DO YOU HAVE ANY RASHES OR OPEN SORES? YES . ALLERGIC/IMMUNO: ARE YOU ALLERGIC TO IV DYE? NO . ANY NEW ALLERGIES? YES, ANY ADHESIVE . PSYCHIATRIC: DO YOU HAVE THOUGHTS OF HURTING YOURSELF OR SOMEONE ELSE? NO . ARE YOU ABUSED, NEGLECTED, OR IN AN UNSAFE ENVIRONMENT? NO . ENDOCRINOLOGY: ARE YOU DIABETIC? NO . OTHER: DO YOU NEED ANY PRESCRIPTIONS? NO . IF YES, PLEASE LIST: ____ . ANY NEW PROBLEMS WITH YOUR MEDICATIONS? NO . WHEN DID YOU LAST EAT? ____ . WHEN DID YOU LAST DRINK? ____ . WHAT DID YOU LAST DRINK? ____ . NAME OF PERSON DRIVING YOU HOME? ____ . DO YOU HAVE ANY OTHER QUESTIONS OR CONCERNS YES . VITAL SIGNS WT 205 LBS, HT 60.5", BMI 39.37 INDEX, BP 138/65 MM HG, HR 82 /MIN, RR 18 /MIN, TEMP 97.8 F, OXYGEN SAT % 92%, SAFE IN ENV? (Y/N) YES, NA INITIALS ME 11:36, REVIEWED BY: ЕЛЕНА. EXAMINATION GENERAL EXAMINATION: GENERAL APPEARANCE:NO ACUTE DISTRESS, WELL NOURISHED AND HYDRATED. PSYCHAPPROPRIATE MOOD AND AFFECT . LUNGS:CLEAR TO AUSCULTATION BILATERALLY, NO WHEEZES, RHONCHI, RALES. HEART:NO MURMURS, REGULAR RATE AND RHYTHM. BACK: FROM.STEADY GAIT. TENDER ALONG BILATERAL LUMBAR PARASPINAL MUSCLES TENDER TO PALPATION ALONG SI JOINT LESLEE TEST POSITIVE LEFT SIDE SLR NEG BILATERAL. NEUROLOGIC EXAM: LEFT LEG: SLUGGISH REFLEX RIGHT LEG + 2+. 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 PATIENT ADVISED OF RISK OF BLEED OR ANOTHER CVA IF WAFARIN IS STOPPED. PATIENT VERBALIZED UNDERSTANDING. SACROILIITIS START GABAPENTIN CAPSULE, 100 MG, 1 CAPSULE, ORALLY, THREE TIMES A DAY, 30 DAY(S), 90, REFILLS 0 CLINICAL NOTES: START GABAPENTIN 1 CAPSULE AT NIGHT FOR 3-4 DAYS, THEN INCREASE TO TWICE ADAY FOR 3-4 DAYS, THEN INCREASE TO 3 TIMES ADAY IN THE SECOND WEEK. PREVENTIVE MEDICINE PAIN CLINIC TEACHING: MEDICATIONS NEW MEDICATION GABAPENTIN INSTRUCTIOINS REVIEWED WITH PT. VERBALIZED UNDERSTANDING.. PROCEDURE CODES FA211 ESTABILISHED PATIENT [facility] CHARGE DISPOSITION & COMMUNICATION FOLLOW UP 2 WEEKS ELECTRONICALLY SIGNED BY DAVEY CARROLL ON 03/02/2019 AT 04:57 PM EDT DISCLAIMER : THIS IS A VISIT SUMMARY EXTRACTED FROM THE [employer] CHART. IT IS NOT A COPY OF THE [employer] PROGRESS NOTE. REGI
== END ==
LOC: M PAIN 11:00
PROVIDERS: ATTEND Nurse Practitioner Family
DX: M47.817 Spondylosis without myelopathy or radiculopathy, lumbosacral region (principal); M47.26 Other spondylosis with radiculopathy, lumbar region; M46.1 Sacroiliitis, not elsewhere classified; E78.5 Hyperlipidemia, unspecified; F41.9 Anxiety disorder, unspecified; G54.0 Brachial plexus disorders; G47.00 Insomnia, unspecified; E03.9 Hypothyroidism, unspecified; Z87.442 Personal history of urinary calculi; Z86.711 Personal history of pulmonary embolism; Z86.73 Personal history of transient ischemic attack (TIA), and cerebral infarction without residual deficits; Z98.41 Cataract extraction status, right eye; Z98.42 Cataract extraction status, left eye; Z90.49 Acquired absence of other specified parts of digestive tract; Z87.891 Personal history of nicotine dependence; Z79.82 Long term (current) use of aspirin; Z79.01 Long term (current) use of anticoagulants; Z79.899 Other long term (current) drug therapy; Z88.2 Allergy status to sulfonamides; Z91.048 Other nonmedicinal substance allergy status

== ENCOUNTER → 2019-04-04 | Outpatient (CLI) | payer MEDICARE, OTHER ==
--- NOTE | 2019-04-04 16:53 | REP ---
Supine abdomen single AP view: Comparison is 10/24/2018. The bowel gas pattern is normal. There are surgical clips in the right upper quadrant, unchanged. The previous distal left ureteral calcifications in the pelvis are no longer identified. There are large bridging osteophytes along the right lateral margin of the L1-L2 vertebral bodies, unchanged, compatible with degenerative disc disease. No renal or ureteral calculi are identified. Electronically Signed by Santi Butler MD 04/04/2019 04:45 P
== END ==
LOC: M SMT 14:43
PROVIDERS: ATTEND Nurse Practitioner Family
DX: M25.78 Osteophyte, vertebrae (principal); N20.0 Calculus of kidney
CPT/HCPCS: 74018; G0463

== ENCOUNTER → 2019-05-30 | Outpatient (CLI) | payer MEDICARE, OTHER ==
--- NOTE | 2019-06-13 02:06 | ECWPNPC ---
PATIENT NAME: NIKOLAY HAMILTON : 1940 GENDER: FEMALE VISIT DATE: 05/30/2019 DISCHARGE DATE: 05/30/19 1408 VISIT LOCKED DATE TIME: PHYSICIAN: LUIS DANIEL RODRIGUEZ RESOURCE: LUIS DANIEL RODRIGUEZ REASON FOR APPOINTMENT 1. BACK/NECK PAIN HISTORY OF PRESENT ILLNESS HISTORY OF PRESENT ILLNESS: HERE FOR F/U OF CHRONIC LBP.PAIN HAS ESCALATED OVER THE PAST MONTH.WONDERING IF SHE CAN HAVE SHOTS.STARTED ON COUMADIN THIS PAST OCTOBER.PAIN IS WORSE ON RIGHT SIDE.RATING PAIN VAS /10.USING GABAPENTIN 100MG PRN WITH GOOD RELIEF.DISCUSSED MEDICATION AND TREATMENT OPTIONS. PAIN THE PATIENT DESCRIBES THE PAIN... FALL RISK SCREENING: SCREENING :NO FALLS REPORTED IN THE LAST YEAR CURRENT MEDICATIONS TAKING LIVALO 2 MG TABLET 1 TABLET ORALLY ONCE A DAY AT BEDTIME TAKING ASPIR-81 81 MG TABLET DELAYED RELEASE 1 TABLET ORALLY ONCE A DAY TAKING NORTRIPTYLINE HCL 10 MG CAPSULE 1 CAPSULE ORALLY DAILY TAKING LIVALO 1 MG TABLET 2 TAB ORAL DAILY TAKING ZOLPIDEM TARTRATE 5 MG TABLET 1 TABLET AT BEDTIME ORALLY ONCE A DAY TAKING LEVOTHYROXINE SODIUM 75 MCG TABLET 1 TABLET ON AN EMPTY STOMACH IN THE MORNING ORALLY ONCE A DAY TAKING CITALOPRAM HYDROBROMIDE 20 MG TABLET 1 TABLET ORALLY ONCE A DAY TAKING ALPRAZOLAM 0.5 MG TABLET 1 TABLET ORALLY THREE TIMES A DAY TAKING BUPROPION HCL ER (XL) 150 MG TABLET EXTENDED RELEASE 24 HOUR 1 TABLET IN THE MORNING ORALLY ONCE A DAY TAKING VITAMIN D (ERGOCALCIFEROL) 2000 UNIT CAPSULE ORALLY TAKING MULTI FOR HER 50+ - TABLET ORALLY TAKING WARFARIN SODIUM 3 MG TABLET 1 /2 TABS 6 DAYS A WEEK, WEDNESDAY 2 TABS ORALLY ONCE A DAY TAKING SUPER B COMPLEX TAKING GABAPENTIN 100 MG CAPSULE 1 CAPSULE ORALLY THREE TIMES A DAY MEDICATION LIST REVIEWED AND RECONCILED WITH THE PATIENT PAST MEDICAL HISTORY HYPERLIPIDEMIA ANXIETY DEGENERATIVE DISC DISEASE INSOMNIA HYPOTHYROIDISM CATARACTS 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 1DAUGHTER(S) . BROTHER FROM COLON\\/PANCREATIC CANCER. SOCIAL HISTORY GENERAL: TOBACCO USE ARE YOU A:FORMER SMOKER HOW LONG HAS IT BEEN SINCE YOU LAST SMOKED?1-5 YEARS HIV / HEP-C SCREENING HIV TEST OFFERED TO PATIENT:YES HEP-C TEST OFFERED TO PATIENT:YES EDUCATION LEVEL OF EDUCATION:NOT FINISHED COLLEGE DIET: REGULAR. LANGUAGE LANGUAGES SPOKEN:[place] DOMESTIC VIOLENCE NONE. RECREATIONAL DRUG USE DENIES. EXERCISE: WALKS. 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 PROCEDURE INSTRUCTIONS HAS THE PATIENT BEEN EDUCATED REGARDING PAIN, THE RISK FOR PAIN, THE IMPORTANCE OF EFFECTIVE PAIN MANAGEMENT, AND THE PAIN ASSESSMENT PROCESS?YES LATEX QUESTIONNAIRE LATEX ALLERGY : HAVE YOU EVER DEVELOPED ANY TYPE OF REACTION AFTER HANDLING LATEX PRODUCTS SUCH RUBBER GLOVES, CONDOMS, DIAPHRAGMS, BALLOONS, SOCKS, OR UNDERWEAR?NO LATEX ALLERGY : HAVE YOU EVER DEVELOPED ANY TYPE OF REACTION DURING OR AFTER DENTAL APPOINTMENT, VAGINAL/RECTAL EXAMINATION, SURGICAL PROCEDURE, OR ANY OTHER EXPOSURE?NO LATEX RISK : HAVE YOU EVER HAD ANY DIFFICULTY BREATHING OR HIVES AFTER EATING OR HANDLING ANY FRUITS, OR VEGETABLES; SUCH KIWI, BANANAS, STONE FRUITS, OR CHESTNUTSNO LATEX RISK : DO YOU HAVE A PREVIOUS PERSONAL HISTORY OF MORE THAN NINE SURGERIES, SPINA BIFIDA, OR REPEATED CATHERIZATIONS? NO LATEX RISK : ARE YOU FREQUENTLY EXPOSED TO LATEX PRODUCTS IN YOUR OCCUPATION?NO DATE ASKED : 10/24/2018 CAFFEINE 1 A DAY.. ADVANCE DIRECTIVE ADVANCE DIRECTIVE DISCUSSED WITH PATIENT:YES HCP ZOYA KHAN LENARD DERAS QUAKER [address] MARITAL STATUS: . ALCOHOL SCREENING DID YOU HAVE A DRINK CONTAINING ALCOHOL IN THE PAST YEAR?NO POINTS0 INTERPRETATIONNEGATIVE SEXUAL HX HAD SEX IN THE LAST 12 MONTHS (VAGINAL, ORAL, OR ANAL)?: NO, HAVE YOU EVER HAD AN STD?: NO. REVIEWED 02/09/18 1325 LAS. HOSPITALIZATION/MAJOR DIAGNOSTIC PROCEDURE SURGERY RELATED ONLY REVIEW OF SYSTEMS REVIEWED BY: PROVIDER: LUIS DANIEL MARISCAL . CONSTITUTIONAL: ANY CHANGE IN YOUR MEDICAL CONDITION? NO . CHILLS NO . FEVER NO . INFECTION: DO YOU HAVE NEW INFECTIONS? NO . DO YOU HAVE HISTORY OF MRSA? NO . MUSCULOSKELETAL: ANY NEW PATTERNS OF PAIN OR NUMBNESS? YES- BACK PAIN STARTS LOWER AND RADIATES UP HIGHER MORE ON THE RIGHT SIDE, STABBING AND SHOOTING PAIN ALL OF THE SUDDEN . GASTROENTEROLOGY: ANY NEW CHANGE IN BOWEL CONTROL? NO . GENITOURINARY: ANY NEW CHANGE IN BLADDER CONTROL? NO . IS THERE A CHANCE YOU COULD BE ? NO . HEMATOLOGY/LYMPH: DO YOU TAKE ANY BLOOD THINNERS? (FOR EXAMPLE- COUMADIN, PLAVIX, AGGRENOX, PLATEL, PRADAXA, OR XARELTO) YES- COUMADIN AND ASPRIN . WHEN WAS YOUR LAST DOSE? DATE: TIME: . NEUROLOGY: HAVE YOU FALLEN IN THE PAST 12 MONTHS? YES- ABOOUT 5 WEEKS GARDENING STOOL SLID OUT FROM UNDER HER AND LANDED ON HER BUTT, STATES NO INJURIES FROM FALL . ANY NEW EXTREMITY NUMBNESS OR WEAKNESS? NO . CARDIOLOGY: DO YOU HAVE A PACEMAKER OR DEFIBRILLATOR? NO . RESPIRATORY: HAVE YOU BEEN SICK IN THE PAST WEEK? NO . FEVER NO . FLU LIKE SYMPTOMS? NO . COUGH NO . INTEGUMENTARY: DO YOU HAVE ANY RASHES OR OPEN SORES? NO . ALLERGIC/IMMUNO: ARE YOU ALLERGIC TO IV DYE? NO . ANY NEW ALLERGIES? NO . PSYCHIATRIC: DO YOU HAVE THOUGHTS OF HURTING YOURSELF OR SOMEONE ELSE? NO . ARE YOU ABUSED, NEGLECTED, OR IN AN UNSAFE ENVIRONMENT? NO . ENDOCRINOLOGY: ARE YOU DIABETIC? NO . OTHER: DO YOU NEED ANY PRESCRIPTIONS? YES- NEEDS GABAPENTIN . IF YES, PLEASE LIST: ____ . ANY NEW PROBLEMS WITH YOUR MEDICATIONS? NO . WHEN DID YOU LAST EAT? ____ . WHEN DID YOU LAST DRINK? ____ . WHAT DID YOU LAST DRINK? ____ . NAME OF PERSON DRIVING YOU HOME? ____ . DO YOU HAVE ANY OTHER QUESTIONS OR CONCERNS YES- PATIENT WOULD LIKE TO KNOW WHY SHE CAN NOT HAVE SHOTS IN HER BACK, STATES SHE GETS BLOOD DRAWN EVERY 4 WEEKS CURRENTLY FOR PT/INR, AND STATES SHE CLOTS WELL. . VITAL SIGNS WT 202.6 LBS, HT 60.5", BMI 38.91 INDEX, BP 136/65 MM HG, HR 75 /MIN, RR 18 /MIN, TEMP 97.3 F, OXYGEN SAT % 95%, SAFE IN ENV? (Y/N) YES, NA INITIALS AW 1311. EXAMINATION GENERAL EXAMINATION: GENERAL AWAKE,ALERT ,PLEAASANT . PSYCH AFFECT NORMAL . LUNGS: LUNG BROWN ARE CLEAR TO AUSCULTATION BILATERALLY. GOOD MOVEMENT OF AIR . HEART: S1, S2 IN A REGULAR RATE AND RHYTHM. NO SIGNIFICANT MURMURS, RUBS OR GALLOPS NOTED . MUSCULOSKELETAL: MUSCLE STRENGTH TESTING 4/5 BILATERAL LOWER EXTREMITIES. LUMBAR SACRAL SPINETRIGGER POINTS:,ELICITED WITH PALPATION OVER RIGHT LUMBAR PARAVERTEBRAL,LOWER THORACIC MUSCLES WITH RESTRICTION OF ROM IN THIS AREA. ASSESSMENTS MYALGIA, OTHER SITE - M79.18 (PRIMARY) TREATMENT MYALGIA, OTHER SITE REFILL GABAPENTIN CAPSULE, 100 MG, 1 CAPSULE, ORALLY, THREE TIMES A DAY, 30 DAY(S), 90, REFILLS 2 NOTES: TPI RIGHT THORACIC/LUMBAR. OTHERS NOTES: OPTIONS: TRIGGER POINT INJECTION MATERIAL WAS PRINTED. PROCEDURE CODES FA211 ESTABILISHED PATIENT [facility] FACILITY CHARGE DISPOSITION & COMMUNICATION FOLLOW UP POST (REASON: TPI RIGHT THORACIC/LUMBAR) ELECTRONICALLY SIGNED BY DAVEY RICH ON 06/12/2019 AT 09:03 AM EDT DISCLAIMER : THIS IS A VISIT SUMMARY EXTRACTED FROM THE [employer] CHART. IT IS NOT A COPY OF THE [employer] PROGRESS NOTE. REGI
== END ==
LOC: M PAIN 13:15
PROVIDERS: ATTEND Nurse Practitioner Family
DX: M79.18 Myalgia, other site (principal); E78.5 Hyperlipidemia, unspecified; F41.9 Anxiety disorder, unspecified; G47.00 Insomnia, unspecified; E03.9 Hypothyroidism, unspecified; Z87.442 Personal history of urinary calculi; Z86.711 Personal history of pulmonary embolism; Z86.73 Personal history of transient ischemic attack (TIA), and cerebral infarction without residual deficits; G54.0 Brachial plexus disorders; Z87.891 Personal history of nicotine dependence; Z79.82 Long term (current) use of aspirin; Z79.01 Long term (current) use of anticoagulants; Z79.899 Other long term (current) drug therapy; Z90.49 Acquired absence of other specified parts of digestive tract; Z98.41 Cataract extraction status, right eye; Z98.42 Cataract extraction status, left eye; Z88.2 Allergy status to sulfonamides; Z91.048 Other nonmedicinal substance allergy status

== ENCOUNTER → 2019-06-12 | Outpatient (CLI) | payer MEDICARE, OTHER ==
[~2019-06-12] MED LIST changes: +BUPIVACAINE HCL 0.25% 10 ML VIAL As Ordered ONE; +BUPIVACAINE HCL 0.25% 30 ML VIAL As Ordered ONE; +TRIAMCINOLONE ACETONIDE SUSP 40 MG/ML VIAL (J3301) As Ordered ONE; +diazePAM 5 MG TAB As Ordered ONE; +oxyCODONE 5MG TAB As Ordered ONE
--- NOTE | 2019-06-21 00:38 | ECWPNPC ---
PATIENT NAME: NIKOLAY HAMILTON : 1940 GENDER: FEMALE VISIT DATE: 06/12/2019 DISCHARGE DATE: 06/12/191544 VISIT LOCKED DATE TIME: PHYSICIAN: AUSTIN SALAZAR MD RESOURCE: AUSTIN SALAZAR MD REASON FOR APPOINTMENT 1. TPI RIGHT THORACIC/LUMBAR HISTORY OF PRESENT ILLNESS HISTORY OF PRESENT ILLNESS: PAIN THE PATIENT DESCRIBES THE PAIN... FALL RISK SCREENING: SCREENING :NO FALLS REPORTED IN THE LAST YEAR CURRENT MEDICATIONS TAKING LIVALO 2 MG TABLET 1 TABLET ORALLY ONCE A DAY AT BEDTIME, NOTES: 06/11/192299 TAKING ASPIR-81 81 MG TABLET DELAYED RELEASE 1 TABLET ORALLY ONCE A DAY, NOTES: 06/12/19 1000 TAKING NORTRIPTYLINE HCL 10 MG CAPSULE 1 CAPSULE ORALLY DAILY, NOTES: 06/11/192199 TAKING ZOLPIDEM TARTRATE 5 MG TABLET 1 TABLET AT BEDTIME ORALLY ONCE A DAY, NOTES: 06/11/192199 TAKING LEVOTHYROXINE SODIUM 75 MCG TABLET 1 TABLET ON AN EMPTY STOMACH IN THE MORNING ORALLY ONCE A DAY, NOTES: 06/12/19 1000 TAKING CITALOPRAM HYDROBROMIDE 20 MG TABLET 1 TABLET ORALLY ONCE A DAY, NOTES: 06/12/19 1000 TAKING ALPRAZOLAM 0.5 MG TABLET 1 TABLET ORALLY THREE TIMES A DAY, NOTES: 06/11/192199 TAKING BUPROPION HCL ER (XL) 150 MG TABLET EXTENDED RELEASE 24 HOUR 1 TABLET IN THE MORNING ORALLY ONCE A DAY, NOTES: 06/11/192199 TAKING VITAMIN D (ERGOCALCIFEROL) 2000 UNIT CAPSULE ORALLY , NOTES: 06/12/19 1000 TAKING MULTI FOR HER 50+ - TABLET ORALLY , NOTES: 06/12/19 1000 TAKING WARFARIN SODIUM 3 MG TABLET 1 1/2 TABS 5 DAYS A WEEK, WEDNESDAY/WEDNESDAY 2 TABS ORALLY ONCE A DAY, NOTES: 06/11/192299 TAKING GABAPENTIN 100 MG CAPSULE 1 CAPSULE ORALLY THREE TIMES A DAY, NOTES: 06/11/19 1400 NOT-TAKING LIVALO 1 MG TABLET 2 TAB ORAL DAILY, NOTES: DUPLICATE NOT-TAKING SUPER B COMPLEX MEDICATION LIST REVIEWED AND RECONCILED WITH THE PATIENT PAST MEDICAL HISTORY HYPERLIPIDEMIA ANXIETY DEGENERATIVE DISC DISEASE INSOMNIA HYPOTHYROIDISM CATARACTS 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 1DAUGHTER(S) . BROTHER FROM COLON\\/PANCREATIC CANCER. SOCIAL HISTORY GENERAL: TOBACCO USE ARE YOU A:FORMER SMOKER HOW LONG HAS IT BEEN SINCE YOU LAST SMOKED?1-5 YEARS HIV / HEP-C SCREENING HIV TEST OFFERED TO PATIENT:YES HEP-C TEST OFFERED TO PATIENT:YES EDUCATION LEVEL OF EDUCATION:NOT FINISHED COLLEGE DIET: REGULAR. LANGUAGE LANGUAGES SPOKEN:CHINESE DOMESTIC VIOLENCE NONE. RECREATIONAL DRUG USE DENIES. EXERCISE: WALKS. 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 PROCEDURE INSTRUCTIONS HAS THE PATIENT BEEN EDUCATED REGARDING PAIN, THE RISK FOR PAIN, THE IMPORTANCE OF EFFECTIVE PAIN MANAGEMENT, AND THE PAIN ASSESSMENT PROCESS?YES LATEX QUESTIONNAIRE LATEX ALLERGY : HAVE YOU EVER DEVELOPED ANY TYPE OF REACTION AFTER HANDLING LATEX PRODUCTS SUCH RUBBER GLOVES, CONDOMS, DIAPHRAGMS, BALLOONS, SOCKS, OR UNDERWEAR?NO LATEX ALLERGY : HAVE YOU EVER DEVELOPED ANY TYPE OF REACTION DURING OR AFTER DENTAL APPOINTMENT, VAGINAL/RECTAL EXAMINATION, SURGICAL PROCEDURE, OR ANY OTHER EXPOSURE?NO LATEX RISK : HAVE YOU EVER HAD ANY DIFFICULTY BREATHING OR HIVES AFTER EATING OR HANDLING ANY FRUITS, OR VEGETABLES; SUCH KIWI, BANANAS, STONE FRUITS, OR CHESTNUTSNO LATEX RISK : DO YOU HAVE A PREVIOUS PERSONAL HISTORY OF MORE THAN NINE SURGERIES, SPINA BIFIDA, OR REPEATED CATHERIZATIONS? NO LATEX RISK : ARE YOU FREQUENTLY EXPOSED TO LATEX PRODUCTS IN YOUR OCCUPATION?NO DATE ASKED : 10/24/2018 CAFFEINE 1 A DAY.. ADVANCE DIRECTIVE ADVANCE DIRECTIVE DISCUSSED WITH PATIENT:YES HCP ZOYA KHAN [phone] LENARD DERAS SYNAGOGUE [id number] [facility] MARITAL STATUS: . ALCOHOL SCREENING DID YOU HAVE A DRINK CONTAINING ALCOHOL IN THE PAST YEAR?NO POINTS0 INTERPRETATIONNEGATIVE SEXUAL HX HAD SEX IN THE LAST 12 MONTHS (VAGINAL, ORAL, OR ANAL)?: NO, HAVE YOU EVER HAD AN STD?: NO. REVIEWED 02/09/18 1325 LASREVIEWED WITH PT 06/12/19 1420 BV. HOSPITALIZATION/MAJOR DIAGNOSTIC PROCEDURE SURGERY RELATED ONLY REVIEW OF SYSTEMS REVIEWED BY: PROVIDER: . CONSTITUTIONAL: ANY CHANGE IN YOUR MEDICAL CONDITION? NO . CHILLS NO . FEVER NO . INFECTION: DO YOU HAVE NEW INFECTIONS? NO . DO YOU HAVE HISTORY OF MRSA? NO . MUSCULOSKELETAL: ANY NEW PATTERNS OF PAIN OR NUMBNESS? NO . GASTROENTEROLOGY: ANY NEW CHANGE IN BOWEL CONTROL? NO . GENITOURINARY: ANY NEW CHANGE IN BLADDER CONTROL? NO . IS THERE A CHANCE YOU COULD BE ? NO . HEMATOLOGY/LYMPH: DO YOU TAKE ANY BLOOD THINNERS? (FOR EXAMPLE- COUMADIN, PLAVIX, AGGRENOX, PLATEL, PRADAXA, OR XARELTO) NO . WHEN WAS YOUR LAST DOSE? DATE: TIME: . NEUROLOGY: HAVE YOU FALLEN IN THE PAST 12 MONTHS? YES, PT HAD A FALL ON A ROLLING STOOL A FEW WEEKS AGO. DENIES ANY INJURIES OR ED VISIT WITH FALL . ANY NEW EXTREMITY NUMBNESS OR WEAKNESS? NO . CARDIOLOGY: DO YOU HAVE A PACEMAKER OR DEFIBRILLATOR? NO . RESPIRATORY: HAVE YOU BEEN SICK IN THE PAST WEEK? NO . FEVER NO . FLU LIKE SYMPTOMS? NO . COUGH NO . INTEGUMENTARY: DO YOU HAVE ANY RASHES OR OPEN SORES? NO . ALLERGIC/IMMUNO: ARE YOU ALLERGIC TO IV DYE? NO . ANY NEW ALLERGIES? NO . PSYCHIATRIC: DO YOU HAVE THOUGHTS OF HURTING YOURSELF OR SOMEONE ELSE? NO . ARE YOU ABUSED, NEGLECTED, OR IN AN UNSAFE ENVIRONMENT? NO . ENDOCRINOLOGY: ARE YOU DIABETIC? NO . OTHER: DO YOU NEED ANY PRESCRIPTIONS? NO . IF YES, PLEASE LIST: ____ . ANY NEW PROBLEMS WITH YOUR MEDICATIONS? NO . WHEN DID YOU LAST EAT? YES 06/11/19 2200 . WHEN DID YOU LAST DRINK? 06/12/19 1000 . WHAT DID YOU LAST DRINK? WATER . NAME OF PERSON DRIVING YOU HOME? YANIRA PAGE . DO YOU HAVE ANY OTHER QUESTIONS OR CONCERNS NO . VITAL SIGNS WT 200.6 LBS, HT 60.5", BMI 38.53 INDEX, BP 151/67 MM HG, HR 75 /MIN, RR 18 /MIN, TEMP 96.0 F, OXYGEN SAT % 96%, NA INITIALS AW 1402, REVIEWED BY: BV. ASSESSMENTS MYALGIA, OTHER SITE - M79.18 (PRIMARY) PROCEDURES PN TRIGGER POINT INJECTION WITH STEROIDS PRE PROCEDURE DIAGNOSIS 1. MYALGIA 2. PAIN AT RIGHT THORACIC AREA AND RIGHT LOW BACK AREA POST PROCEDURE DIAGNOSIS 1. MYALGIA 2. PAIN AT RIGHT THORACIC AREA AND RIGHT LOW BACK AREA PROCEDURE TRIGGER POINT INJECTION AT RIGHT THORACIC AREA AND RIGHT LOW BACK AREA SURGEON DR. AUSTIN SALAZAR PALLET ASSEMBLER NONE ANESTHESIA LOCAL PRE PROCEDURE NOTE THE PATIENT HAS A HISTORY OF CHRONIC PAIN AT THE RIGHT THORACIC AREA AND RIGHT LOW BACK AREA. I EVALUATE THE PATIENT AND REVIEWED THE CHART. THERE IS EVIDENCE OF BANDS OF TISSUE WITH RESTRICTION OF MOVEMENT AND PRESENCE OF TRIGGER POINT AT THE AFFECTED AREA. I WENT OVER THE RISKS, ALTERNATIVES, AND BENEFITS ASSOCIATED WITH THIS PROCEDURE. THE PATIENT WOULD LIKE TO PROCEED AND GIVE CONSENT TO PERFORMED THE PROCEDURE. THE PATIENT DENIES UNEXPLAINABLE WEIGHT LOSS, FEVER, CHILLS, OR NEW CHANGES IN URINARY OR BOWEL CONTROL DESCRIPTION OF PROCEDURE THE PATIENT WAS BROUGHT TO THE PROCEDURE ROOM AND PLACED IN THE SITTING POSITION. THE AREA WAS CLEANED WITH ALCOHOL. THE PROCEDURE WAS DONE USING ASEPTIC STERILE TECHNIQUE. I CHECKED LATERALITY AND THE LEVEL WHERE THE PROCEDURE WAS GOING TO BE PERFORMED WITH THE PATIENT AND THE SUPPORTING STAFF AT THE MOMENT OF THE TIME OUT IN THE PROCEDURE ROOM. USING A 25-GAUGE NEEDLE, TRIGGER POINTS WERE INJECTED AT THE RIGHT THORACIC AREA AND RIGHT LOW BACK AREA WITH A TOTAL OF 40 ML OF BUPIVACAINE 0.25% AND KENALOG 40 MG. THERE WAS NO EVIDENCE OF BLOOD, PARESTHESIA OR CEREBROSPINAL FLUID DURING THE PROCEDURE. THE PATIENT WAS SENT TO THE RECOVERY ROOM. THE PATIENT WAS MOVING THE EXTREMITIES AND DOING WELL. THERE WAS NO COMPLICATION DURING THE PROCEDURE POST PROCEDURE NOTE THE PATIENT WILL BE SEEN IN A FOLLOW UP IN THE NEXT FEW WEEKS. INSTRUCTIONS WERE GIVEN, QUESTIONS WERE ANSWERED, AND THE PATIENT EXPRESSED UNDERSTANDING AND AGREES WITH THE PLAN. I, CELI HALL, DOCUMENTED THE ABOVE INFORMATION ACTING A SCRIBE FOR DR. SALAZAR. I HAVE REVIEWED THE ABOVE DOCUMENT, WRITTEN BY CELI HUNTER AND I VERIFY THAT IT IS ACCURATE. PROCEDURE CODES 78970 INJ TRIGGER POINT / MUSC DISPOSITION & COMMUNICATION FOLLOW UP 3 WEEKS ELECTRONICALLY SIGNED BY AUSTIN SALAZAR MD, MD ON 06/20/2019 AT 03:08 PM EDT DISCLAIMER : THIS IS A VISIT SUMMARY EXTRACTED FROM THE [employer] CHART. IT IS NOT A COPY OF THE [employer] PROGRESS NOTE. REGI
== END ==
LOC: M PAIN 14:00
PROVIDERS: ATTEND Anesthesiology
DX: M79.18 Myalgia, other site (principal); E78.5 Hyperlipidemia, unspecified; F41.9 Anxiety disorder, unspecified; G47.00 Insomnia, unspecified; E03.9 Hypothyroidism, unspecified; G54.0 Brachial plexus disorders; Z98.41 Cataract extraction status, right eye; Z98.42 Cataract extraction status, left eye; Z86.711 Personal history of pulmonary embolism; Z87.442 Personal history of urinary calculi; Z86.73 Personal history of transient ischemic attack (TIA), and cerebral infarction without residual deficits; Z79.82 Long term (current) use of aspirin; Z79.01 Long term (current) use of anticoagulants; Z79.899 Other long term (current) drug therapy; Z88.2 Allergy status to sulfonamides; Z91.048 Other nonmedicinal substance allergy status
CPT/HCPCS: 20552; J3301

== ENCOUNTER → 2019-07-13 | Outpatient (CLI) | payer MEDICARE, OTHER ==
[~2019-07-13] MED LIST changes: -BUPIVACAINE HCL 0.25% 10 ML VIAL As Ordered ONE; -BUPIVACAINE HCL 0.25% 30 ML VIAL As Ordered ONE; -TRIAMCINOLONE ACETONIDE SUSP 40 MG/ML VIAL (J3301) As Ordered ONE; -diazePAM 5 MG TAB As Ordered ONE; -oxyCODONE 5MG TAB As Ordered ONE
--- NOTE | 2019-07-14 23:22 | ECWPNPC ---
PATIENT NAME: NIKOLAY HAMILTON : 1940 GENDER: FEMALE VISIT DATE: 07/13/2019 DISCHARGE DATE: 07/13/19 1152 VISIT LOCKED DATE TIME: PHYSICIAN: JOANNE SANTAMARIA RESOURCE: JOANNE SANTAMARIA REASON FOR APPOINTMENT 1. POST TPI HISTORY OF PRESENT ILLNESS HISTORY OF PRESENT ILLNESS: PAIN THE PATIENT DESCRIBES THE PAIN... 79 YEAR OLD FEMALE IN FOR POST TPI FOLLOW UP. SHE FEELS THE PROCEDURE WORKED FOR ABOUT 1 WEEK AND THEN RETURNED. SHE RATES HER PAIN AT A 10/10 CURRENTLY AND DESCRIBES IT SHARP AND SHOOTING. FALL RISK SCREENING: SCREENING :NO FALLS REPORTED IN THE LAST YEAR CURRENT MEDICATIONS TAKING LIVALO 2 MG TABLET 1 TABLET ORALLY ONCE A DAY AT BEDTIME TAKING ASPIR-81 81 MG TABLET DELAYED RELEASE 1 TABLET ORALLY ONCE A DAY TAKING NORTRIPTYLINE HCL 10 MG CAPSULE 1 CAPSULE ORALLY DAILY TAKING ZOLPIDEM TARTRATE 5 MG TABLET 1 TABLET AT BEDTIME ORALLY ONCE A DAY TAKING LEVOTHYROXINE SODIUM 75 MCG TABLET 1 TABLET ON AN EMPTY STOMACH IN THE MORNING ORALLY ONCE A DAY TAKING CITALOPRAM HYDROBROMIDE 20 MG TABLET 1 TABLET ORALLY ONCE A DAY TAKING ALPRAZOLAM 0.5 MG TABLET 1 TABLET ORALLY THREE TIMES A DAY TAKING BUPROPION HCL ER (XL) 150 MG TABLET EXTENDED RELEASE 24 HOUR 1 TABLET IN THE MORNING ORALLY ONCE A DAY TAKING VITAMIN D (ERGOCALCIFEROL) 2000 UNIT CAPSULE ORALLY TAKING MULTI FOR HER 50+ - TABLET ORALLY TAKING WARFARIN SODIUM 3 MG TABLET 2 TABS 3 TIMES A WEEK AND THEN 1 1/2 THE REST OF THE WEEK ORALLY ONCE A DAY TAKING GABAPENTIN 100 MG CAPSULE 1 CAPSULE ORALLY THREE TIMES A DAY TAKING SUPER B COMPLEX NOT-TAKING LIVALO 1 MG TABLET 2 TAB ORAL DAILY MEDICATION LIST REVIEWED AND RECONCILED WITH THE PATIENT PAST MEDICAL HISTORY HYPERLIPIDEMIA ANXIETY DEGENERATIVE DISC DISEASE INSOMNIA HYPOTHYROIDISM CATARACTS 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 1DAUGHTER(S) . BROTHER FROM COLON\\/PANCREATIC CANCER. SOCIAL HISTORY GENERAL: TOBACCO USE ARE YOU A:FORMER SMOKER HOW LONG HAS IT BEEN SINCE YOU LAST SMOKED?1-5 YEARS HIV / HEP-C SCREENING HIV TEST OFFERED TO PATIENT:YES HEP-C TEST OFFERED TO PATIENT:YES EDUCATION LEVEL OF EDUCATION:NOT FINISHED COLLEGE DIET: REGULAR. LANGUAGE LANGUAGES SPOKEN:FINNISH DOMESTIC VIOLENCE NONE. RECREATIONAL DRUG USE DENIES. EXERCISE: WALKS. 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 PROCEDURE INSTRUCTIONS HAS THE PATIENT BEEN EDUCATED REGARDING PAIN, THE RISK FOR PAIN, THE IMPORTANCE OF EFFECTIVE PAIN MANAGEMENT, AND THE PAIN ASSESSMENT PROCESS?YES LATEX QUESTIONNAIRE LATEX ALLERGY : HAVE YOU EVER DEVELOPED ANY TYPE OF REACTION AFTER HANDLING LATEX PRODUCTS SUCH RUBBER GLOVES, CONDOMS, DIAPHRAGMS, BALLOONS, SOCKS, OR UNDERWEAR?NO LATEX ALLERGY : HAVE YOU EVER DEVELOPED ANY TYPE OF REACTION DURING OR AFTER DENTAL APPOINTMENT, VAGINAL/RECTAL EXAMINATION, SURGICAL PROCEDURE, OR ANY OTHER EXPOSURE?NO LATEX RISK : HAVE YOU EVER HAD ANY DIFFICULTY BREATHING OR HIVES AFTER EATING OR HANDLING ANY FRUITS, OR VEGETABLES; SUCH KIWI, BANANAS, STONE FRUITS, OR CHESTNUTSNO LATEX RISK : DO YOU HAVE A PREVIOUS PERSONAL HISTORY OF MORE THAN NINE SURGERIES, SPINA BIFIDA, OR REPEATED CATHERIZATIONS? NO LATEX RISK : ARE YOU FREQUENTLY EXPOSED TO LATEX PRODUCTS IN YOUR OCCUPATION?NO DATE ASKED : 10/24/2018 CAFFEINE 1 A DAY.. ADVANCE DIRECTIVE ADVANCE DIRECTIVE DISCUSSED WITH PATIENT:YES HCP ZOYA KHAN [phone] LENARD DERAS CHEONDOISM [id number] [facility] MARITAL STATUS: . ALCOHOL SCREENING DID YOU HAVE A DRINK CONTAINING ALCOHOL IN THE PAST YEAR?NO POINTS0 INTERPRETATIONNEGATIVE SEXUAL HX HAD SEX IN THE LAST 12 MONTHS (VAGINAL, ORAL, OR ANAL)?: NO, HAVE YOU EVER HAD AN STD?: NO. REVIEWED 02/09/18 1325 LASREVIEWED WITH PT 06/12/19 1420 BVREVIEWED WITH PATIENT 07/13/19 1057 NLJ. HOSPITALIZATION/MAJOR DIAGNOSTIC PROCEDURE SURGERY RELATED ONLY REVIEW OF SYSTEMS REVIEWED BY: PROVIDER: NIRAV MARISCAL-Rodrick . CONSTITUTIONAL: ANY CHANGE IN YOUR MEDICAL CONDITION? NO . CHILLS NO . FEVER NO . INFECTION: DO YOU HAVE NEW INFECTIONS? NO . DO YOU HAVE HISTORY OF MRSA? NO . MUSCULOSKELETAL: ANY NEW PATTERNS OF PAIN OR NUMBNESS? YES- TRIGGER POINTS WORKED VERY WELL FOR ABOUT A WEEK, STATES PAIN HAS RETURNED TO PRE INJECTION LEVEL, STATES SHE NOW HAS TINGLING, "PRICKLY FEELING", DOWN EITHER LEG . GASTROENTEROLOGY: ANY NEW CHANGE IN BOWEL CONTROL? NO . GENITOURINARY: ANY NEW CHANGE IN BLADDER CONTROL? NO . IS THERE A CHANCE YOU COULD BE ? NO . HEMATOLOGY/LYMPH: DO YOU TAKE ANY BLOOD THINNERS? (FOR EXAMPLE- COUMADIN, PLAVIX, AGGRENOX, PLATEL, PRADAXA, OR XARELTO) YES- COUMADIN . WHEN WAS YOUR LAST DOSE? DATE:07/12/19 TIME: 1700 . NEUROLOGY: HAVE YOU FALLEN IN THE PAST 12 MONTHS? YES- PREVIOULSY DOCUMENTED . ANY NEW EXTREMITY NUMBNESS OR WEAKNESS? YES- TINGLING FEELING DOWN EITHER LEG RECENTLY . CARDIOLOGY: DO YOU HAVE A PACEMAKER OR DEFIBRILLATOR? NO . RESPIRATORY: HAVE YOU BEEN SICK IN THE PAST WEEK? NO . FEVER NO . FLU LIKE SYMPTOMS? NO . COUGH NO . INTEGUMENTARY: DO YOU HAVE ANY RASHES OR OPEN SORES? NO . ALLERGIC/IMMUNO: ARE YOU ALLERGIC TO IV DYE? NO . ANY NEW ALLERGIES? NO . PSYCHIATRIC: DO YOU HAVE THOUGHTS OF HURTING YOURSELF OR SOMEONE ELSE? NO . ARE YOU ABUSED, NEGLECTED, OR IN AN UNSAFE ENVIRONMENT? NO . ENDOCRINOLOGY: ARE YOU DIABETIC? NO . OTHER: DO YOU NEED ANY PRESCRIPTIONS? NO . IF YES, PLEASE LIST: ____ . ANY NEW PROBLEMS WITH YOUR MEDICATIONS? NO . WHEN DID YOU LAST EAT? ____ . WHEN DID YOU LAST DRINK? ____ . WHAT DID YOU LAST DRINK? ____ . NAME OF PERSON DRIVING YOU HOME? ____ . DO YOU HAVE ANY OTHER QUESTIONS OR CONCERNS YES- STATES TPI WORKED FOR ABOUT A WEEK AND HAS SINCE WOREN OFF, STATES HER NEUROLOGIST HAS TOLD HER SHE WOULD NOT BE ABLE TO STOP COUMADIN FOR PROCEDURES . VITAL SIGNS WT 203.2 LBS, HT 60.5", BMI 39.03 INDEX, BP 134/73 MM HG, HR 74 /MIN, RR 18 /MIN, TEMP 96.2 F, OXYGEN SAT % 95%, SAFE IN ENV? (Y/N) YES, NA INITIALS OR 11:04, REVIEWED BY: JAYY. EXAMINATION GENERAL EXAMINATION: GENERALNO ACUTE DISTRESS, WELL NOURISHED AND HYDRATED. PSYCHAPPROPRIATE MOOD AND AFFECT . LUNGS:CLEAR TO AUSCULTATION BILATERALLY, NO WHEEZES, RHONCHI, RALES. HEART:NO MURMURS, REGULAR RATE AND RHYTHM. BACK:POINT TENDER BILATERAL THORACIC AND LUMBAR AREA, SURROUNDING SKIN SHOWS NO ERYTHEMA, ECCHYMOSIS, INCREASED WARMTH, AND/OR SKIN ERUPTIONS.. ASSESSMENTS MYALGIA, OTHER SITE - M79.18 (PRIMARY) TREATMENT MYALGIA, OTHER SITE NOTES: TPI OF BILATERAL THORACIC AND LOW BACK . CLINICAL NOTES: 79 YEAR OLD FEMALE IN FOR CHRONIC PAIN FOLLOW UP. GIVEN PRESENTING SYMPTOMS AND RESULTS OF PHYSICAL EXAMINATION RECOMMENDED BILATERAL THORACIC AND LUMBAR TPI WITH POST PROCEDURAL FOLLOW UP. PATIENT HAS EXPRESSED UNDERSTANDING OF AND WAS IN AGREEMENT WITH TREATMENT PLAN. GIVEN TIME TO ASK QUESTIONS AND EXPRESS CONCERNS. PROCEDURE CODES FA211 ESTABILISHED PATIENT [facility] FACILITY CHARGE DISPOSITION & COMMUNICATION FOLLOW UP POST PROCEDURE (REASON: TPI OF BILATERAL THORACIC AND LOW BACK ) ELECTRONICALLY SIGNED BY DAVEY CARVER ON 07/14/2019 AT 08:55 AM EDT DISCLAIMER : THIS IS A VISIT SUMMARY EXTRACTED FROM THE [employer] CHART. IT IS NOT A COPY OF THE [employer] PROGRESS NOTE. REGI
== END ==
LOC: M PAIN 11:00
PROVIDERS: ATTEND Family Medicine
DX: M79.18 Myalgia, other site (principal); E78.5 Hyperlipidemia, unspecified; Z86.59 Personal history of other mental and behavioral disorders; G47.00 Insomnia, unspecified; E03.9 Hypothyroidism, unspecified; Z86.711 Personal history of pulmonary embolism; Z87.891 Personal history of nicotine dependence; Z88.2 Allergy status to sulfonamides; Z91.09 Other allergy status, other than to drugs and biological substances; Z79.01 Long term (current) use of anticoagulants; Z79.82 Long term (current) use of aspirin; Z79.899 Other long term (current) drug therapy

== ENCOUNTER → 2019-08-31 | Outpatient (CLI) | payer MEDICARE, OTHER ==
[~2019-08-31] MED LIST changes: +BUPIVACAINE HCL 0.25% 10 ML VIAL As Ordered ONE; +BUPIVACAINE HCL 0.25% 30 ML VIAL As Ordered ONE; +TRIAMCINOLONE ACETONIDE SUSP 40 MG/ML VIAL (J3301) As Ordered ONE; +diazePAM 5 MG TAB As Ordered ONE; +oxyCODONE 5MG TAB As Ordered ONE
--- NOTE | 2019-09-14 01:18 | ECWPNPC ---
PATIENT NAME: NIKOLAY HAMILTON : 1940 GENDER: FEMALE VISIT DATE: 08/31/2019 DISCHARGE DATE: 08/31/191432 VISIT LOCKED DATE TIME: PHYSICIAN: AUSTIN SALAZAR MD RESOURCE: AUSTIN SALAZAR MD REASON FOR APPOINTMENT 1. TPI OF BILATERAL LOW BACK HISTORY OF PRESENT ILLNESS HISTORY OF PRESENT ILLNESS: PAIN THE PATIENT DESCRIBES THE PAIN... FALL RISK SCREENING: SCREENING :NO FALLS REPORTED IN THE LAST YEAR CURRENT MEDICATIONS TAKING LIVALO 2 MG TABLET 1 TABLET ORALLY ONCE A DAY AT BEDTIME, NOTES: 08/30/192329 TAKING ASPIR-81 81 MG TABLET DELAYED RELEASE 1 TABLET ORALLY ONCE A DAY, NOTES: 929 TAKING NORTRIPTYLINE HCL 10 MG CAPSULE 1 CAPSULE ORALLY DAILY, NOTES: 08/30/192329 TAKING ZOLPIDEM TARTRATE 5 MG TABLET 1 TABLET AT BEDTIME ORALLY ONCE A DAY, NOTES: 08/30/192329 TAKING LEVOTHYROXINE SODIUM 75 MCG TABLET 1 TABLET ON AN EMPTY STOMACH IN THE MORNING ORALLY ONCE A DAY, NOTES: 929 TAKING CITALOPRAM HYDROBROMIDE 20 MG TABLET 1 TABLET ORALLY ONCE A DAY, NOTES: 08/30/192329 TAKING ALPRAZOLAM 0.5 MG TABLET 1 TABLET ORALLY THREE TIMES A DAY, NOTES: 08/30/192329 TAKING BUPROPION HCL ER (XL) 150 MG TABLET EXTENDED RELEASE 24 HOUR 1 TABLET IN THE MORNING ORALLY ONCE A DAY, NOTES: 929 TAKING VITAMIN D (ERGOCALCIFEROL) 2000 UNIT CAPSULE ORALLY , NOTES: 929 TAKING MULTI FOR HER 50+ - TABLET ORALLY , NOTES: 929 TAKING WARFARIN SODIUM 3 MG TABLET 2 TABS 3 TIMES A WEEK AND THEN 1 1/2 THE REST OF THE WEEK ORALLY ONCE A DAY, NOTES: 08/30/192329 TAKING GABAPENTIN 100 MG CAPSULE 1 CAPSULE ORALLY THREE TIMES A DAY, NOTES: 08/30/191529 NOT-TAKING SUPER B COMPLEX W/ PROBIOTIC DAILY, NOTES: 929 NOT-TAKING LIVALO 1 MG TABLET 2 TAB ORAL DAILY MEDICATION LIST REVIEWED AND RECONCILED WITH THE PATIENT PAST MEDICAL HISTORY HYPERLIPIDEMIA ANXIETY DEGENERATIVE DISC DISEASE INSOMNIA HYPOTHYROIDISM CATARACTS 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 KIDNEY STONES 2014, 2017 ACUTE FATIGUE SYNDROME ALLERGIES SULFA: HIVES - ALLERGY TAPE ADHESIVE: HIVES - ALLERGY SURGICAL HISTORY TONSILLECTOMY 1945 ADENOIDECTOMY 194 RIB TAKEN OUT GANGLION CYST X3 SHOULDER SURGERY CHOLECYSTECTOMY KIDNEY STONES REMOVED X2 ANKLE SURGERY LEFT THUMB SURGERY LITHOTRIPSY 05/2014 RIGHT EYE CATARACT SURGERY 06/18/15 LEFT EYE CATARACT SURGERY 08/2015 CYSTOSCOPY WITH STENT REMOVAL 11/30/2018 CYSTOSCOPY WITH STENT PLACEMENT 11/08/18 LEFT EYE CATARACT SURGERY 08/2019 FAMILY HISTORY FATHER: 66 YRS MOTHER: 75 YRS, IN SIBLINGS: 78 YRS, DIAGNOSED WITH UNSPECIFIED HEART DISEASE 1 BROTHER(S) . 1DAUGHTER(S) . BROTHER FROM COLON\\/PANCREATIC CANCER. SOCIAL HISTORY GENERAL: TOBACCO USE ARE YOU A:FORMER SMOKER HOW LONG HAS IT BEEN SINCE YOU LAST SMOKED?1-5 YEARS HIV / HEP-C SCREENING HIV TEST OFFERED TO PATIENT:YES HEP-C TEST OFFERED TO PATIENT:YES EDUCATION LEVEL OF EDUCATION:NOT FINISHED COLLEGE DIET: REGULAR. LANGUAGE LANGUAGES SPOKEN:SLOVENIAN DOMESTIC VIOLENCE NONE. RECREATIONAL DRUG USE DENIES. EXERCISE: WALKS. 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 PROCEDURE INSTRUCTIONS HAS THE PATIENT BEEN EDUCATED REGARDING PAIN, THE RISK FOR PAIN, THE IMPORTANCE OF EFFECTIVE PAIN MANAGEMENT, AND THE PAIN ASSESSMENT PROCESS?YES LATEX QUESTIONNAIRE LATEX ALLERGY : HAVE YOU EVER DEVELOPED ANY TYPE OF REACTION AFTER HANDLING LATEX PRODUCTS SUCH RUBBER GLOVES, CONDOMS, DIAPHRAGMS, BALLOONS, SOCKS, OR UNDERWEAR?NO LATEX ALLERGY : HAVE YOU EVER DEVELOPED ANY TYPE OF REACTION DURING OR AFTER DENTAL APPOINTMENT, VAGINAL/RECTAL EXAMINATION, SURGICAL PROCEDURE, OR ANY OTHER EXPOSURE?NO LATEX RISK : HAVE YOU EVER HAD ANY DIFFICULTY BREATHING OR HIVES AFTER EATING OR HANDLING ANY FRUITS, OR VEGETABLES; SUCH KIWI, BANANAS, STONE FRUITS, OR CHESTNUTSNO LATEX RISK : DO YOU HAVE A PREVIOUS PERSONAL HISTORY OF MORE THAN NINE SURGERIES, SPINA BIFIDA, OR REPEATED CATHERIZATIONS? NO LATEX RISK : ARE YOU FREQUENTLY EXPOSED TO LATEX PRODUCTS IN YOUR OCCUPATION?NO DATE ASKED : 10/24/2018 CAFFEINE 1 A DAY.. ADVANCE DIRECTIVE ADVANCE DIRECTIVE DISCUSSED WITH PATIENT:YES HCP ZOYA KHAN LENARD DERAS P[facility] [id number] [facility] STATUS: . ALCOHOL SCREENING DID YOU HAVE A DRINK CONTAINING ALCOHOL IN THE PAST YEAR?NO POINTS0 INTERPRETATIONNEGATIVE SEXUAL HX HAD SEX IN THE LAST 12 MONTHS (VAGINAL, ORAL, OR ANAL)?: NO, HAVE YOU EVER HAD AN STD?: NO. REVIEWED 02/09/18 1325 LASREVIEWED WITH PT 06/12/19 1420 BVREVIEWED WITH PATIENT 07/13/19 1057 NLJREVIEWED WITH PATIENT 08/31/19 1215 JS. HOSPITALIZATION/MAJOR DIAGNOSTIC PROCEDURE SURGERY RELATED ONLY REVIEW OF SYSTEMS REVIEWED BY: PROVIDER: . CONSTITUTIONAL: ANY CHANGE IN YOUR MEDICAL CONDITION? YES, TOLD SHE HAS ACUTE FATIGUE SYNDROME DUE TO DORMANT MONO INFECTION . CHILLS NO . FEVER NO . INFECTION: DO YOU HAVE NEW INFECTIONS? NO . DO YOU HAVE HISTORY OF MRSA? NO . MUSCULOSKELETAL: ANY NEW PATTERNS OF PAIN OR NUMBNESS? NO . GASTROENTEROLOGY: ANY NEW CHANGE IN BOWEL CONTROL? NO . GENITOURINARY: ANY NEW CHANGE IN BLADDER CONTROL? NO . IS THERE A CHANCE YOU COULD BE ? NO . HEMATOLOGY/LYMPH: DO YOU TAKE ANY BLOOD THINNERS? (FOR EXAMPLE- COUMADIN, PLAVIX, AGGRENOX, PLATEL, PRADAXA, OR XARELTO) YES, COUMADIN . WHEN WAS YOUR LAST DOSE? DATE: 08/30/19TIME: 2330 . NEUROLOGY: HAVE YOU FALLEN IN THE PAST 12 MONTHS? NO . ANY NEW EXTREMITY NUMBNESS OR WEAKNESS? NO . CARDIOLOGY: DO YOU HAVE A PACEMAKER OR DEFIBRILLATOR? NO . RESPIRATORY: HAVE YOU BEEN SICK IN THE PAST WEEK? NO . FEVER NO . FLU LIKE SYMPTOMS? NO . COUGH NO . INTEGUMENTARY: DO YOU HAVE ANY RASHES OR OPEN SORES? NO . ALLERGIC/IMMUNO: ARE YOU ALLERGIC TO IV DYE? NO . ANY NEW ALLERGIES? NO . PSYCHIATRIC: DO YOU HAVE THOUGHTS OF HURTING YOURSELF OR SOMEONE ELSE? NO . ARE YOU ABUSED, NEGLECTED, OR IN AN UNSAFE ENVIRONMENT? NO . ENDOCRINOLOGY: ARE YOU DIABETIC? NO . OTHER: DO YOU NEED ANY PRESCRIPTIONS? NO . IF YES, PLEASE LIST: ____ . ANY NEW PROBLEMS WITH YOUR MEDICATIONS? NO . WHEN DID YOU LAST EAT? ____08/30/19 2130 . WHEN DID YOU LAST DRINK? ____08/31/19 0940 . WHAT DID YOU LAST DRINK? ____WATER . NAME OF PERSON DRIVING YOU HOME? ____JESSICA . DO YOU HAVE ANY OTHER QUESTIONS OR CONCERNS FLU VACCINE 08/28/19, EXPLAINED TO PATIENT THE RISK OF HAVING A STEROID INJECTION AFTER RECEIVING THE FLU VACCINE AT IT CAN DECREASE THE EFFECTIVENESS OF THE FLU VACCINE. PATIENT STATES SHE STILL WANTS TO HAVE THE INJECTION TODAY. DISCUSSED WITH DR. SALAZAR, OK TO PROCEED WITH TRIGGER POINT INJECTIONS . VITAL SIGNS WT 191 LBS, HT 60.5", BMI 36.68 INDEX, BP 154/67 MM HG, HR 77 /MIN, RR 18 /MIN, TEMP 96.2 F, OXYGEN SAT % 94%, SAFE IN ENV? (Y/N) YES, NA INITIALS SC 11:50, REVIEWED BY: JS. ASSESSMENTS MYALGIA, OTHER SITE - M79.18 (PRIMARY) PROCEDURES PN TRIGGER POINT INJECTION WITH STEROIDS PRE PROCEDURE DIAGNOSIS 1. MYALGIA 2. PAIN AT RIGHT AND LEFT LOW BACK AREA. POST PROCEDURE DIAGNOSIS 1. MYALGIA 2. PAIN AT RIGHT AND LEFT LOW BACK AREA. PROCEDURE TRIGGER POINT INJECTION AT RIGHT AND LEFT LOW BACK AREA. SURGEON DR. AUSTIN SALAZAR BONE PULLER NONE ANESTHESIA LOCAL PRE PROCEDURE NOTE THE PATIENT HAS A HISTORY OF CHRONIC PAIN AT THE RIGHT AND LEFT LOW BACK AREA. I EVALUATED THE PATIENT AND REVIEWED THE CHART. THERE IS EVIDENCE OF BANDS OF TISSUE WITH RESTRICTION OF MOVEMENT AND PRESENCE OF TRIGGER POINT AT THE AFFECTED AREA. I WENT OVER THE RISKS, ALTERNATIVES, AND BENEFITS ASSOCIATED WITH THIS PROCEDURE. THE PATIENT WOULD LIKE TO PROCEED AND GIVES CONSENT TO PERFORM THE PROCEDURE. THE PATIENT DENIES UNEXPLAINABLE WEIGHT LOSS, FEVER, CHILLS, OR NEW CHANGES IN URINARY OR BOWEL CONTROL DESCRIPTION OF PROCEDURE THE PATIENT WAS BROUGHT TO THE PROCEDURE ROOM AND PLACED IN THE SITTING POSITION. THE AREA WAS CLEANED WITH ALCOHOL. THE PROCEDURE WAS DONE USING ASEPTIC STERILE TECHNIQUE. I CHECKED LATERALITY AND THE LEVEL WHERE THE PROCEDURE WAS GOING TO BE PERFORMED WITH THE PATIENT AND THE SUPPORTING STAFF AT THE MOMENT OF THE TIME OUT IN THE PROCEDURE ROOM. USING A 25-GAUGE NEEDLE, TRIGGER POINTS WERE INJECTED AT THE RIGHT AND LEFT LOW BACK AREA WITH A TOTAL OF 40 ML OF BUPIVACAINE 0.25% AND KENALOG 40 MG. THERE WAS NO EVIDENCE OF BLOOD, PARESTHESIA OR CEREBROSPINAL FLUID DURING THE PROCEDURE. THE PATIENT WAS SENT TO THE RECOVERY ROOM. THE PATIENT WAS MOVING THE EXTREMITIES AND DOING WELL. THERE WAS NO COMPLICATION DURING THE PROCEDURE POST PROCEDURE NOTE THE PATIENT WILL BE SEEN IN A FOLLOW UP IN THE NEXT FEW WEEKS. INSTRUCTIONS WERE GIVEN, QUESTIONS WERE ANSWERED, AND THE PATIENT EXPRESSED UNDERSTANDING AND AGREES WITH THE PLAN. I, YANIRA FONTAINE, DOCUMENTED THE ABOVE INFORMATION ACTING A SCRIBE FOR DR. SALAZAR. I HAVE REVIEWED THE ABOVE DOCUMENT, WRITTEN BY YANIRA FONTAINE SCRIBVelma AND I VERIFY THAT IT IS ACCURATE. PROCEDURE CODES 17668 INJ TRIGGER POINT 11/23 [facility] DISPOSITION & COMMUNICATION FOLLOW UP 3 WEEKS ELECTRONICALLY SIGNED BY AUSTIN SALAZAR MD, ON 09/13/2019 AT 01:56 PM EDT DISCLAIMER : THIS IS A VISIT SUMMARY EXTRACTED FROM THE [employer] CHART. IT IS NOT A COPY OF THE [employer] PROGRESS NOTE. MTDHomero
== END ==
LOC: M PAIN 11:15
PROVIDERS: ATTEND Anesthesiology
DX: M79.18 Myalgia, other site (principal); E78.5 Hyperlipidemia, unspecified; F41.9 Anxiety disorder, unspecified; G47.00 Insomnia, unspecified; E03.9 Hypothyroidism, unspecified; R53.83 Other fatigue; Z86.73 Personal history of transient ischemic attack (TIA), and cerebral infarction without residual deficits; Z86.711 Personal history of pulmonary embolism; Z87.442 Personal history of urinary calculi; Z98.41 Cataract extraction status, right eye; Z98.42 Cataract extraction status, left eye; Z87.891 Personal history of nicotine dependence; Z79.82 Long term (current) use of aspirin; Z79.899 Other long term (current) drug therapy; Z79.01 Long term (current) use of anticoagulants; Z88.2 Allergy status to sulfonamides; Z91.048 Other nonmedicinal substance allergy status
CPT/HCPCS: 20552; J3301

== ENCOUNTER → 2019-09-20 | Outpatient (CLI) | payer MEDICARE, OTHER ==
[~2019-09-20] MED LIST changes: -BUPIVACAINE HCL 0.25% 10 ML VIAL As Ordered ONE; -BUPIVACAINE HCL 0.25% 30 ML VIAL As Ordered ONE; -TRIAMCINOLONE ACETONIDE SUSP 40 MG/ML VIAL (J3301) As Ordered ONE; -diazePAM 5 MG TAB As Ordered ONE; -oxyCODONE 5MG TAB As Ordered ONE
--- NOTE | 2019-09-22 02:21 | ECWPNPC ---
PATIENT NAME: NIKOLAY HAMILTON : 1940 GENDER: FEMALE VISIT DATE: 09/20/2019 DISCHARGE DATE: 09/20/19 1203 VISIT LOCKED DATE TIME: PHYSICIAN: JOANNE SANTAMARIA RESOURCE: JOANNE SANTAMARIA REASON FOR APPOINTMENT 1. POST PROC HISTORY OF PRESENT ILLNESS HISTORY OF PRESENT ILLNESS: 71-YEAR-OLD FEMALE IN FOR POST TPI FOLLOW-UP. SHE RATES HER PAIN PREPROCEDURE AT A 9 OUT OF 10 AND POSTPROCEDURE AT A 4/10 BUT FURTHER STATES THIS ONLY LASTED ABOUT 3 DAYS. SHE RATES HER PAIN CURRENTLY AT A 6 OUT OF 10 AND DESCRIBES IT ACHING, BURNING, SORE, TENDER, AND SHOOTING. SHE DOES STATE THAT AT HER LAST VISIT DR. SALAZAR DISCUSSED A LOVENOX BRIDGE WITH HER SHE CANNOT STOP HER COUMADIN FOR PROCEDURES SO THAT HE MAY POTENTIALLY DO A FACET BLOCK. PAIN THE PATIENT DESCRIBES THE PAIN... FALL RISK SCREENING: SCREENING :NO FALLS REPORTED IN THE LAST YEAR CURRENT MEDICATIONS TAKING LIVALO 2 MG TABLET 1 TABLET ORALLY ONCE A DAY AT BEDTIME TAKING ASPIR-81 81 MG TABLET DELAYED RELEASE 1 TABLET ORALLY ONCE A DAY TAKING NORTRIPTYLINE HCL 10 MG CAPSULE 1 CAPSULE ORALLY DAILY TAKING ZOLPIDEM TARTRATE 5 MG TABLET 1 TABLET AT BEDTIME ORALLY ONCE A DAY TAKING LEVOTHYROXINE SODIUM 75 MCG TABLET 1 TABLET ON AN EMPTY STOMACH IN THE MORNING ORALLY ONCE A DAY TAKING CITALOPRAM HYDROBROMIDE 20 MG TABLET 1 TABLET ORALLY ONCE A DAY TAKING ALPRAZOLAM 0.5 MG TABLET 1 TABLET ORALLY THREE TIMES A DAY TAKING BUPROPION HCL ER (XL) 150 MG TABLET EXTENDED RELEASE 24 HOUR 1 TABLET IN THE MORNING ORALLY ONCE A DAY TAKING VITAMIN D (ERGOCALCIFEROL) 2000 UNIT CAPSULE ORALLY TAKING MULTI FOR HER 50+ - TABLET ORALLY TAKING WARFARIN SODIUM 3 MG TABLET 2 TABS 3 TIMES A WEEK AND THEN 1 1/2 THE REST OF THE WEEK ORALLY ONCE A DAY TAKING GABAPENTIN 100 MG CAPSULE 1 CAPSULE ORALLY THREE TIMES A DAY NOT-TAKING SUPER B COMPLEX W/ PROBIOTIC DAILY, NOTES: 0930 NOT-TAKING LIVALO 1 MG TABLET 2 TAB ORAL DAILY MEDICATION LIST REVIEWED AND RECONCILED WITH THE PATIENT PAST MEDICAL HISTORY HYPERLIPIDEMIA ANXIETY DEGENERATIVE DISC DISEASE INSOMNIA HYPOTHYROIDISM CATARACTS 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 KIDNEY STONES 2014, 2017 ACUTE ON CHRONIC FATIGUE SYNDROME ALLERGIES SULFA: HIVES - ALLERGY TAPE ADHESIVE: HIVES - ALLERGY SURGICAL HISTORY TONSILLECTOMY 1945 ADENOIDECTOMY 1945 RIB TAKEN OUT GANGLION CYST X3 SHOULDER SURGERY CHOLECYSTECTOMY KIDNEY STONES REMOVED X2 ANKLE SURGERY LEFT THUMB SURGERY LITHOTRIPSY 05/2014 RIGHT EYE CATARACT SURGERY 06/18/15 LEFT EYE CATARACT SURGERY 08/2015 CYSTOSCOPY WITH STENT REMOVAL 11/30/2018 CYSTOSCOPY WITH STENT PLACEMENT 11/08/18 LEFT EYE CATARACT SURGERY 08/2019 FAMILY HISTORY FATHER: 66 YRS MOTHER: 75 YRS, [place] SIBLINGS: 78 YRS, DIAGNOSED WITH UNSPECIFIED HEART DISEASE 1 BROTHER(S) . 1DAUGHTER(S) . BROTHER FROM COLON\\/PANCREATIC CANCER. SOCIAL HISTORY GENERAL: TOBACCO USE ARE YOU A:FORMER SMOKER HOW LONG HAS IT BEEN SINCE YOU LAST SMOKED?1-5 YEARS HIV / HEP-C SCREENING HIV TEST OFFERED TO PATIENT:YES HEP-C TEST OFFERED TO PATIENT:YES EDUCATION LEVEL OF EDUCATION:NOT FINISHED COLLEGE DIET: REGULAR. LANGUAGE LANGUAGES SPOKEN:STATELESS DOMESTIC VIOLENCE NONE. RECREATIONAL DRUG USE DENIES. EXERCISE: WALKS. 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 PROCEDURE INSTRUCTIONS HAS THE PATIENT BEEN EDUCATED REGARDING PAIN, THE RISK FOR PAIN, THE IMPORTANCE OF EFFECTIVE PAIN MANAGEMENT, AND THE PAIN ASSESSMENT PROCESS?YES LATEX QUESTIONNAIRE LATEX ALLERGY : HAVE YOU EVER DEVELOPED ANY TYPE OF REACTION AFTER HANDLING LATEX PRODUCTS SUCH RUBBER GLOVES, CONDOMS, DIAPHRAGMS, BALLOONS, SOCKS, OR UNDERWEAR?NO LATEX ALLERGY : HAVE YOU EVER DEVELOPED ANY TYPE OF REACTION DURING OR AFTER DENTAL APPOINTMENT, VAGINAL/RECTAL EXAMINATION, SURGICAL PROCEDURE, OR ANY OTHER EXPOSURE?NO LATEX RISK : HAVE YOU EVER HAD ANY DIFFICULTY BREATHING OR HIVES AFTER EATING OR HANDLING ANY FRUITS, OR VEGETABLES; SUCH KIWI, BANANAS, STONE FRUITS, OR CHESTNUTSNO LATEX RISK : DO YOU HAVE A PREVIOUS PERSONAL HISTORY OF MORE THAN NINE SURGERIES, SPINA BIFIDA, OR REPEATED CATHERIZATIONS? NO LATEX RISK : ARE YOU FREQUENTLY EXPOSED TO LATEX PRODUCTS IN YOUR OCCUPATION?NO DATE ASKED : 10/24/2018 CAFFEINE 1 A DAY.. ADVANCE DIRECTIVE ADVANCE DIRECTIVE DISCUSSED WITH PATIENT:YES HCP ZOYA KHAN LENARD DERAS [phone] [id number] MARITAL STATUS: . ALCOHOL SCREENING DID YOU HAVE A DRINK CONTAINING ALCOHOL IN THE PAST YEAR?NO POINTS0 INTERPRETATIONNEGATIVE SEXUAL HX HAD SEX IN THE LAST 12 MONTHS (VAGINAL, ORAL, OR ANAL)?: NO, HAVE YOU EVER HAD AN STD?: NO. REVIEWED 02/09/18 1325 LASREVIEWED WITH PT 06/12/19 1420 BVREVIEWED WITH PATIENT 07/13/19 1057 NLJREVIEWED WITH PATIENT 08/31/19 1215 JSREVIEWED WITH PATIENT 09/20/19 1127 JS. HOSPITALIZATION/MAJOR DIAGNOSTIC PROCEDURE SURGERY RELATED ONLY REVIEW OF SYSTEMS REVIEWED BY: PROVIDER: NIRAV MARISCAL-C . CONSTITUTIONAL: ANY CHANGE IN YOUR MEDICAL CONDITION? NO . CHILLS NO . FEVER NO . INFECTION: DO YOU HAVE NEW INFECTIONS? NO . DO YOU HAVE HISTORY OF MRSA? NO . MUSCULOSKELETAL: ANY NEW PATTERNS OF PAIN OR NUMBNESS? YES, STATES PAIN KIND OF GOES UP AND DOWN DEPENDING ON HER ACTIVITY. STATES SOMETIMES THE PAIN CREEPS UP HER BACK . GASTROENTEROLOGY: ANY NEW CHANGE IN BOWEL CONTROL? NO . GENITOURINARY: ANY NEW CHANGE IN BLADDER CONTROL? NO . IS THERE A CHANCE YOU COULD BE ? NO . HEMATOLOGY/LYMPH: DO YOU TAKE ANY BLOOD THINNERS? (FOR EXAMPLE- COUMADIN, PLAVIX, AGGRENOX, PLATEL, PRADAXA, OR XARELTO) YES, WARFARIN . WHEN WAS YOUR LAST DOSE? DATE: 09/19/19TIME: 2330 . NEUROLOGY: HAVE YOU FALLEN IN THE PAST 12 MONTHS? NO . ANY NEW EXTREMITY NUMBNESS OR WEAKNESS? NO . CARDIOLOGY: DO YOU HAVE A PACEMAKER OR DEFIBRILLATOR? NO . RESPIRATORY: HAVE YOU BEEN SICK IN THE PAST WEEK? NO . FEVER NO . FLU LIKE SYMPTOMS? NO . COUGH NO . INTEGUMENTARY: DO YOU HAVE ANY RASHES OR OPEN SORES? NO . ALLERGIC/IMMUNO: ARE YOU ALLERGIC TO IV DYE? NO . ANY NEW ALLERGIES? NO . PSYCHIATRIC: DO YOU HAVE THOUGHTS OF HURTING YOURSELF OR SOMEONE ELSE? NO . ARE YOU ABUSED, NEGLECTED, OR IN AN UNSAFE ENVIRONMENT? NO . ENDOCRINOLOGY: ARE YOU DIABETIC? NO . OTHER: DO YOU NEED ANY PRESCRIPTIONS? NO . IF YES, PLEASE LIST: ____ . ANY NEW PROBLEMS WITH YOUR MEDICATIONS? NO . WHEN DID YOU LAST EAT? ____ . WHEN DID YOU LAST DRINK? ____ . WHAT DID YOU LAST DRINK? ____ . NAME OF PERSON DRIVING YOU HOME? ____ . DO YOU HAVE ANY OTHER QUESTIONS OR CONCERNS FLU VACCINE ABOUT 1 MONTH AGO . VITAL SIGNS WT 200.0 LBS, HT 60.5", BMI 38.41 INDEX, BP 134/68 MM HG, HR 83 /MIN, RR 18 /MIN, TEMP 96.8 F, OXYGEN SAT % 92%, SAFE IN ENV? (Y/N) YES, NA INITIALS AW 1126, REVIEWED BY: REID. EXAMINATION GENERAL EXAMINATION: GENERALNO ACUTE DISTRESS, WELL NOURISHED AND HYDRATED. PSYCHAPPROPRIATE MOOD AND AFFECT . LUNGS:CLEAR TO AUSCULTATION BILATERALLY, NO WHEEZES, RHONCHI, RALES. HEART:NO MURMURS, REGULAR RATE AND RHYTHM. BACK:POINT TENDER ALONG LUMBAR SPINE SURROUNDING SKIN SHOWS NO ERYTHEMA, ECCHYMOSIS, INCREASED WARMTH, AND /OR SKIN ERUPTIONS NOTED. PATIENT DOES ENDORSE INCREASED PAIN WITH FACET LOADING. . MUSCULOSKELETAL:EQUAL STRENGTH OF LOWER EXTREMITIES BILATERALLY . 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 GIVEN PRESENTING SYMPTOMS AND RESULTS OF PHYSICAL EXAMINATION RECOMMENDED CONTACTING PRIMARY CARE PROVIDER TO SEE IF HE IS WILLING TO DO A BRIDGE PROGRAM WITH PATIENT THAT SHE MAY POTENTIALLY RECEIVE A FACET BLOCK. PATIENT HAS EXPRESSED UNDERSTANDING OF AND WAS IN AGREEMENT WITH TREATMENT PLAN. GIVEN TIME TO ASK QUESTIONS AND EXPRESS CONCERNS. PROCEDURE CODES FA211 ESTABILISHED PATIENT [facility] CHARGE DISPOSITION & COMMUNICATION FOLLOW UP 4 WEEKS (REASON: CHRONIC PAIN) ELECTRONICALLY SIGNED BY DAVEY CARVER ON 09/21/2019 AT 08:47 AM EDT DISCLAIMER : THIS IS A VISIT SUMMARY EXTRACTED FROM THE [employer] CHART. IT IS NOT A COPY OF THE [employer] PROGRESS NOTE. REGI
== END ==
LOC: M PAIN 11:00
PROVIDERS: ATTEND Family Medicine
DX: M47.817 Spondylosis without myelopathy or radiculopathy, lumbosacral region (principal); E78.5 Hyperlipidemia, unspecified; F41.9 Anxiety disorder, unspecified; G47.00 Insomnia, unspecified; E03.9 Hypothyroidism, unspecified; Z98.41 Cataract extraction status, right eye; Z98.42 Cataract extraction status, left eye; Z87.442 Personal history of urinary calculi; Z86.711 Personal history of pulmonary embolism; Z86.73 Personal history of transient ischemic attack (TIA), and cerebral infarction without residual deficits; R53.82 Chronic fatigue, unspecified; Z90.49 Acquired absence of other specified parts of digestive tract; Z87.891 Personal history of nicotine dependence; Z79.82 Long term (current) use of aspirin; Z79.01 Long term (current) use of anticoagulants; Z79.899 Other long term (current) drug therapy; Z88.2 Allergy status to sulfonamides; Z91.048 Other nonmedicinal substance allergy status

== ENCOUNTER → 2019-10-12 | Outpatient (CLI) | payer MEDICARE, BC, OTHER ==
--- NOTE | 2019-10-12 13:44 | REP ---
Two-view chest: 10/12/2019. Indication: Cough. Comparison: 10/31/2019. Findings: The lungs are clear. There is no significant pleural effusion or pneumothorax. Hyperinflated lungs are redemonstrated. The cardiomediastinal silhouette is unremarkable. Impression: No acute cardiopulmonary process. Electronically Signed by Taran Leslie DO 10/12/2019 01:36 P
== END ==
LOC: M RAD 13:02
PROVIDERS: ATTEND Physician Assistant
DX: R05 Cough (principal); R06.02 Shortness of breath

== ENCOUNTER → 2019-12-11 | Outpatient (CLI) | payer MEDICARE, OTHER ==
--- NOTE | 2019-12-13 02:43 | ECWPNPC ---
PATIENT NAME: NIKOLAY HAMILTON : 1940 GENDER: FEMALE VISIT DATE: 12/11/2019 DISCHARGE DATE: 12/11/19 1450 VISIT LOCKED DATE TIME: PHYSICIAN: JOANNE SANTAMARIA RESOURCE: JOANNE SANTAMARIA REASON FOR APPOINTMENT 1. MED AB- BACK HISTORY OF PRESENT ILLNESS HISTORY OF PRESENT ILLNESS: PAIN THE PATIENT DESCRIBES THE PAIN... 71-YEAR-OLD FEMALE IN FOR CHRONIC PAIN CONSULT. SHE RATES HER PAIN CURRENTLY AT A 5 OUT OF 10 AND DESCRIBES IT ACHING, SHARP, AND SHOOTING. PATIENT FEELS THE GABAPENTIN IS INEFFECTIVE IN HELPING TO ALLEVIATE HER PAIN SYMPTOMS. FALL RISK SCREENING: SCREENING :NO FALLS REPORTED IN THE LAST YEAR CURRENT MEDICATIONS TAKING LIVALO 2 MG TABLET 1 TABLET ORALLY ONCE A DAY AT BEDTIME TAKING ASPIR-81 81 MG TABLET DELAYED RELEASE 1 TABLET ORALLY ONCE A DAY TAKING NORTRIPTYLINE HCL 10 MG CAPSULE 1 CAPSULE ORALLY DAILY TAKING ZOLPIDEM TARTRATE 5 MG TABLET 1 TABLET AT BEDTIME ORALLY ONCE A DAY TAKING LEVOTHYROXINE SODIUM 75 MCG TABLET 1 TABLET ON AN EMPTY STOMACH IN THE MORNING ORALLY ONCE A DAY TAKING CITALOPRAM HYDROBROMIDE 20 MG TABLET 1 TABLET ORALLY ONCE A DAY TAKING ALPRAZOLAM 0.5 MG TABLET 1 TABLET ORALLY THREE TIMES A DAY TAKING BUPROPION HCL ER (XL) 150 MG TABLET EXTENDED RELEASE 24 HOUR 1 TABLET IN THE MORNING ORALLY ONCE A DAY TAKING VITAMIN D (ERGOCALCIFEROL) 2000 UNIT CAPSULE ORALLY TAKING MULTI FOR HER 50+ - TABLET ORALLY TAKING WARFARIN SODIUM 3 MG TABLET 1.5 TABLETS EVERY DAY EXCEPT WEDNESDAY TAKES 2 TABLETS ORALLY ONCE A DAY TAKING GABAPENTIN 100 MG CAPSULE 1 CAPSULE ORALLY THREE TIMES A DAY, NOTES: TAKES NEEDED NOT-TAKING SUPER B COMPLEX W/ PROBIOTIC DAILY, NOTES: 929 NOT-TAKING LIVALO 1 MG TABLET 2 TAB ORAL DAILY MEDICATION LIST REVIEWED AND RECONCILED WITH THE PATIENT PAST MEDICAL HISTORY HYPERLIPIDEMIA ANXIETY DEGENERATIVE DISC DISEASE INSOMNIA HYPOTHYROIDISM CATARACTS 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 KIDNEY STONES 2017 ACUTE ON CHRONIC FATIGUE SYNDROME ALLERGIES SULFA: HIVES - ALLERGY TAPE ADHESIVE: HIVES - ALLERGY SURGICAL HISTORY TONSILLECTOMY 194 ADENOIDECTOMY 194 RIB TAKEN OUT GANGLION CYST X3 SHOULDER SURGERY CHOLECYSTECTOMY KIDNEY STONES REMOVED X2 ANKLE SURGERY LEFT THUMB SURGERY LITHOTRIPSY 05/2014 RIGHT EYE CATARACT SURGERY 06/18/15 LEFT EYE CATARACT SURGERY 08/2015 CYSTOSCOPY WITH STENT REMOVAL 11/30/2018 CYSTOSCOPY WITH STENT PLACEMENT 11/08/18 LEFT EYE CATARACT SURGERY 08/2019 FAMILY HISTORY FATHER: 66 YRS MOTHER: 75 YRS, [place] SIBLINGS: 78 YRS, DIAGNOSED WITH UNSPECIFIED HEART DISEASE 1 BROTHER(S) . 1DAUGHTER(S) . BROTHER FROM COLON\\/PANCREATIC CANCER. SOCIAL HISTORY GENERAL: TOBACCO USE ARE YOU A:FORMER SMOKER HOW LONG HAS IT BEEN SINCE YOU LAST SMOKED?1-5 YEARS HIV / HEP-C SCREENING HIV TEST OFFERED TO PATIENT:YES HEP-C TEST OFFERED TO PATIENT:YES EDUCATION LEVEL OF EDUCATION:NOT FINISHED COLLEGE DIET: REGULAR. LANGUAGE LANGUAGES SPOKEN:COMORAN DOMESTIC VIOLENCE NONE. RECREATIONAL DRUG USE DENIES. EXERCISE: WALKS. 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 PROCEDURE INSTRUCTIONS HAS THE PATIENT BEEN EDUCATED REGARDING PAIN, THE RISK FOR PAIN, THE IMPORTANCE OF EFFECTIVE PAIN MANAGEMENT, AND THE PAIN ASSESSMENT PROCESS?YES LATEX QUESTIONNAIRE LATEX ALLERGY : HAVE YOU EVER DEVELOPED ANY TYPE OF REACTION AFTER HANDLING LATEX PRODUCTS SUCH RUBBER GLOVES, CONDOMS, DIAPHRAGMS, BALLOONS, SOCKS, OR UNDERWEAR?NO LATEX ALLERGY : HAVE YOU EVER DEVELOPED ANY TYPE OF REACTION DURING OR AFTER DENTAL APPOINTMENT, VAGINAL/RECTAL EXAMINATION, SURGICAL PROCEDURE, OR ANY OTHER EXPOSURE?NO DATE ASKED : 10/24/2018 LATEX RISK : HAVE YOU EVER HAD ANY DIFFICULTY BREATHING OR HIVES AFTER EATING OR HANDLING ANY FRUITS, OR VEGETABLES; SUCH KIWI, BANANAS, STONE FRUITS, OR CHESTNUTSNO LATEX RISK : DO YOU HAVE A PREVIOUS PERSONAL HISTORY OF MORE THAN NINE SURGERIES, SPINA BIFIDA, OR REPEATED CATHERIZATIONS? NO LATEX RISK : ARE YOU FREQUENTLY EXPOSED TO LATEX PRODUCTS IN YOUR OCCUPATION?NO CAFFEINE 1 A DAY.. ADVANCE DIRECTIVE ADVANCE DIRECTIVE DISCUSSED WITH PATIENT:YES HCP ZOYA KHAN [phone] LENARD DERAS [phone] YARS[facility] [id number] [facility] MARITAL STATUS: . ALCOHOL SCREENING DID YOU HAVE A DRINK CONTAINING ALCOHOL IN THE PAST YEAR?NO POINTS0 INTERPRETATIONNEGATIVE SEXUAL HX HAD SEX IN THE LAST 12 MONTHS (VAGINAL, ORAL, OR ANAL)?: NO, HAVE YOU EVER HAD AN STD?: NO. REVIEWED 02/09/18 1325 LASREVIEWED WITH PT 06/12/19 1420 BVREVIEWED WITH PATIENT 07/13/19 1057 NLJREVIEWED WITH PATIENT 08/31/19 1215 JSREVIEWED WITH PATIENT 09/20/19 1127 JSREVIEWED WITH PATIENT 12/11/19 1350 BV. HOSPITALIZATION/MAJOR DIAGNOSTIC PROCEDURE SURGERY RELATED ONLY REVIEW OF SYSTEMS REVIEWED BY: PROVIDER: NIRAV SHEN . CONSTITUTIONAL: ANY CHANGE IN YOUR MEDICAL CONDITION? NO . CHILLS NO . FEVER NO . INFECTION: DO YOU HAVE NEW INFECTIONS? NO . DO YOU HAVE HISTORY OF MRSA? NO . MUSCULOSKELETAL: ANY NEW PATTERNS OF PAIN OR NUMBNESS? YES, PT STATES THE PAST TWO MONTHS, SHE HAS NOTICED "PINS AND NEEDLES IN RIGHT FOOT" STATES SHE NOTICES THIS WHEN SEATED IN RECLINER. STATES THE FEELING GOES AWAY WHEN SHE STANDS UP . GASTROENTEROLOGY: ANY NEW CHANGE IN BOWEL CONTROL? NO . GENITOURINARY: ANY NEW CHANGE IN BLADDER CONTROL? STATES SHE HAS NOTICED MINOR LEAKAGE AND INCREASED URGENCY OVER THE PAST 2-3 MONTHS. . IS THERE A CHANCE YOU COULD BE ? NO . HEMATOLOGY/LYMPH: DO YOU TAKE ANY BLOOD THINNERS? (FOR EXAMPLE- COUMADIN, PLAVIX, AGGRENOX, PLATEL, PRADAXA, OR XARELTO) YES . WHEN WAS YOUR LAST DOSE? DATE: TIME: . NEUROLOGY: HAVE YOU FALLEN IN THE PAST 12 MONTHS? NO . ANY NEW EXTREMITY NUMBNESS OR WEAKNESS? NO . CARDIOLOGY: DO YOU HAVE A PACEMAKER OR DEFIBRILLATOR? NO . RESPIRATORY: HAVE YOU BEEN SICK IN THE PAST WEEK? NO . FEVER NO . FLU LIKE SYMPTOMS? NO . COUGH NO . INTEGUMENTARY: DO YOU HAVE ANY RASHES OR OPEN SORES? NO . ALLERGIC/IMMUNO: ARE YOU ALLERGIC TO IV DYE? NO . ANY NEW ALLERGIES? NO . PSYCHIATRIC: DO YOU HAVE THOUGHTS OF HURTING YOURSELF OR SOMEONE ELSE? NO . ARE YOU ABUSED, NEGLECTED, OR IN AN UNSAFE ENVIRONMENT? NO . ENDOCRINOLOGY: ARE YOU DIABETIC? NO . OTHER: DO YOU NEED ANY PRESCRIPTIONS? NO . IF YES, PLEASE LIST: ____ . ANY NEW PROBLEMS WITH YOUR MEDICATIONS? NO . WHEN DID YOU LAST EAT? ____ . WHEN DID YOU LAST DRINK? ____ . WHAT DID YOU LAST DRINK? ____ . NAME OF PERSON DRIVING YOU HOME? ____ . DO YOU HAVE ANY OTHER QUESTIONS OR CONCERNS NO . VITAL SIGNS WT 205.2 LBS, HT 60.5", BMI 39.41 INDEX, BP 135/73 MM HG, HR 81 /MIN, RR 18 /MIN, TEMP 97.0 F, OXYGEN SAT % 93%, SAFE IN ENV? (Y/N) YES, REVIEWED BY: REID. EXAMINATION GENERAL EXAMINATION: GENERALNO ACUTE DISTRESS, WELL NOURISHED AND HYDRATED. PSYCHAPPROPRIATE MOOD AND AFFECT . LUNGS:CLEAR TO AUSCULTATION BILATERALLY, NO WHEEZES, RHONCHI, RALES. HEART:NO MURMURS, REGULAR RATE AND RHYTHM. ASSESSMENTS SPONDYLOSIS OF LUMBOSACRAL REGION WITHOUT MYELOPATHY OR RADICULOPATHY - M47.817 (PRIMARY) TREATMENT SPONDYLOSIS OF LUMBOSACRAL REGION WITHOUT MYELOPATHY OR RADICULOPATHY START BELBUCA FILM, 75 MCG, 1 FILM TO THE GUM, BUCALLY, ONCE A DAY, 30 DAYS, 30 CLINICAL NOTES: 71-YEAR-OLD FEMALE IN FOR CHRONIC PAIN FOLLOW-UP. GIVEN PRESENTING SYMPTOMS AND RESULTS OF PHYSICAL EXAMINATION RECOMMENDED BELBUCA 75 MCG DAILY WITH FOLLOW-UP IN ONE MONTH TO DETERMINE EFFICACY OF TREATMENT. DISCUSSED LOVENOX BRIDGE WITH PATIENT SO SHE CAN RECEIVE PROCEDURES AND SHE STATES THAT SHE WILL DISCUSS THIS WITH HER PCP. PATIENT HAS EXPRESSED UNDERSTANDING OF AND WAS IN AGREEMENT WITH TREATMENT PLAN. GIVEN TIME TO ASK QUESTIONS AND EXPRESS CONCERNS., ISTOP REGISTRY REVIEWED AND DEMONSTRATES COMPLLIANCE. (REF # [id number] ) BRINGS IN MEDICATIONS WHICH IS APPROPRIATE FOR WHAT WAS DISPENSED. RECENT URINE TOXICOLOGY REVIEWED. NO UNAUTHORIZED MEDICATIONS. NO ILLICIT SUBSTANCES AND PRESCRIBED MEDICATIONS WERE PRESENT. , WE ARE TRYING TO LIMIT TOTAL MORPHINE MILLEQUIVALENTS, NUMBER OF PRESCRIPTIONS ISSUED AND C II MEDICATIONS PER CLINICAL GUIDELINES AND BELBUCA WOULD BE INDICATED TO MEET THIS CRITERIA. I AM ALSO USING BELBUCA TO MINIMIZE POTENTIAL FOR SIDE EFFECTS ASSOCIATED WITH C II NARCOTICS AND MUSCLE RELAXANTS IN THE ELDERLY POPULATION AND IN PATIENTS AT RISK FOR RESPIRATORY DEPRESSION. PREVENTIVE MEDICINE PAIN CLINIC TEACHING: MEDICATIONS PT GIVEN WRITTEN AND VERBAL EDUCATION ON STARTING BELBUCA FILM. PT VERBALIZES UNDERSTANDING OF ALL EDUCATION AND INSTRUCTIONS. ASHLEY GAMBINO 12/11/2019 2:45:16 PM > . PROCEDURE CODES FA211 ESTABILISHED PATIENT [facility] CHARGE DISPOSITION & COMMUNICATION FOLLOW UP 4 WEEKS (REASON: LOW BACK PAIN, AND MEDICATION) ELECTRONICALLY SIGNED BY DAVEY CARVER ON 12/12/2019 AT 10:03 AM EST DISCLAIMER : THIS IS A VISIT SUMMARY EXTRACTED FROM THE [employer] CHART. IT IS NOT A COPY OF THE [employer] PROGRESS NOTE. REGI
== END ==
LOC: M PAIN 13:45
PROVIDERS: ATTEND Family Medicine
DX: M47.817 Spondylosis without myelopathy or radiculopathy, lumbosacral region (principal); G89.29 Other chronic pain; E78.5 Hyperlipidemia, unspecified; Z86.59 Personal history of other mental and behavioral disorders; G47.00 Insomnia, unspecified; E03.9 Hypothyroidism, unspecified; Z86.711 Personal history of pulmonary embolism; Z87.891 Personal history of nicotine dependence; Z88.2 Allergy status to sulfonamides; Z91.09 Other allergy status, other than to drugs and biological substances; Z79.82 Long term (current) use of aspirin; Z79.899 Other long term (current) drug therapy

== ENCOUNTER → 2020-01-25 | Outpatient (CLI) | payer MEDICARE, OTHER ==
--- NOTE | 2020-01-27 02:33 | ECWPNPC ---
PATIENT NAME: NIKOLAY HAMILTON : 1940 GENDER: FEMALE VISIT DATE: 01/25/2020 DISCHARGE DATE: 01/25/20 1507 VISIT LOCKED DATE TIME: PHYSICIAN: JOANNE SANTAMARIA RESOURCE: JOANNE SANTAMARIA REASON FOR APPOINTMENT 1. BACK HISTORY OF PRESENT ILLNESS HISTORY OF PRESENT ILLNESS: PAIN THE PATIENT DESCRIBES THE PAIN... 79-YEAR-OLD FEMALE IN FOR CHRONIC PAIN FOLLOW-UP. SHE RATES HER PAIN CURRENTLY AT A 10 OUT OF 10 AND DESCRIBES IT ACHING, SHARP, BURNING, AND STABBING. PATIENT FEELS THE BELBUCA HAS BEEN HELPFUL BUT THE CURRENT DOSAGE DOES NOT LAST THROUGHOUT THE DAY. FALL RISK SCREENING: SCREENING :NO FALLS REPORTED IN THE LAST YEAR CURRENT MEDICATIONS TAKING LIVALO 2 MG TABLET 1 TABLET ORALLY ONCE A DAY AT BEDTIME TAKING ASPIR-81 81 MG TABLET DELAYED RELEASE 1 TABLET ORALLY ONCE A DAY TAKING NORTRIPTYLINE HCL 10 MG CAPSULE 1 CAPSULE ORALLY DAILY TAKING ZOLPIDEM TARTRATE 5 MG TABLET 1 TABLET AT BEDTIME ORALLY ONCE A DAY TAKING LEVOTHYROXINE SODIUM 75 MCG TABLET 1 TABLET ON AN EMPTY STOMACH IN THE MORNING ORALLY ONCE A DAY TAKING CITALOPRAM HYDROBROMIDE 20 MG TABLET 1 TABLET ORALLY ONCE A DAY TAKING ALPRAZOLAM 0.5 MG TABLET 1 TABLET ORALLY THREE TIMES A DAY TAKING BUPROPION HCL ER (XL) 150 MG TABLET EXTENDED RELEASE 24 HOUR 1 TABLET IN THE MORNING ORALLY ONCE A DAY TAKING VITAMIN D (ERGOCALCIFEROL) 2000 UNIT CAPSULE ORALLY TAKING MULTI FOR HER 50+ - TABLET ORALLY TAKING WARFARIN SODIUM 3 MG TABLET 1.5 TABLETS EVERY DAY EXCEPT WEDNESDAY TAKES 2 TABLETS ORALLY ONCE A DAY TAKING GABAPENTIN 100 MG CAPSULE 1 CAPSULE ORALLY THREE TIMES A DAY, NOTES: TAKES NEEDED TAKING BELBUCA 75 MCG FILM 1 FILM TO THE GUM BUCALLY ONCE A DAY NOT-TAKING SUPER B COMPLEX W/ PROBIOTIC DAILY, NOTES: 0930 NOT-TAKING LIVALO 1 MG TABLET 2 TAB ORAL DAILY MEDICATION LIST REVIEWED AND RECONCILED WITH THE PATIENT PAST MEDICAL HISTORY HYPERLIPIDEMIA ANXIETY DEGENERATIVE DISC DISEASE INSOMNIA HYPOTHYROIDISM CATARACTS 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 KIDNEY STONES 2014, 2017 ACUTE ON CHRONIC FATIGUE SYNDROME ALLERGIES SULFA: HIVES - ALLERGY TAPE ADHESIVE: HIVES - ALLERGY SURGICAL HISTORY TONSILLECTOMY 194 ADENOIDECTOMY 194 RIB TAKEN OUT GANGLION CYST X3 SHOULDER SURGERY CHOLECYSTECTOMY KIDNEY STONES REMOVED X2 ANKLE SURGERY LEFT THUMB SURGERY LITHOTRIPSY 05/2014 RIGHT EYE CATARACT SURGERY 06/18/15 LEFT EYE CATARACT SURGERY 08/2015 CYSTOSCOPY WITH STENT REMOVAL 11/30/2018 CYSTOSCOPY WITH STENT PLACEMENT 11/08/18 LEFT EYE CATARACT SURGERY 08/2019 FAMILY HISTORY FATHER: 66 YRS MOTHER: 75 YRS, [place] SIBLINGS: 78 YRS, DIAGNOSED WITH UNSPECIFIED HEART DISEASE 1 BROTHER(S) . 1DAUGHTER(S) . BROTHER FROM COLON\\/PANCREATIC CANCER. SOCIAL HISTORY GENERAL: TOBACCO USE ARE YOU A:FORMER SMOKER HOW LONG HAS IT BEEN SINCE YOU LAST SMOKED?1-5 YEARS HIV / HEP-C SCREENING HIV TEST OFFERED TO PATIENT:YES HEP-C TEST OFFERED TO PATIENT:YES EDUCATION LEVEL OF EDUCATION:NOT FINISHED COLLEGE DIET: REGULAR. LANGUAGE LANGUAGES SPOKEN:LUXEMBOURGISH DOMESTIC VIOLENCE NONE. RECREATIONAL DRUG USE DENIES. EXERCISE: WALKS. 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 PROCEDURE INSTRUCTIONS HAS THE PATIENT BEEN EDUCATED REGARDING PAIN, THE RISK FOR PAIN, THE IMPORTANCE OF EFFECTIVE PAIN MANAGEMENT, AND THE PAIN ASSESSMENT PROCESS?YES LATEX QUESTIONNAIRE LATEX ALLERGY : HAVE YOU EVER DEVELOPED ANY TYPE OF REACTION AFTER HANDLING LATEX PRODUCTS SUCH RUBBER GLOVES, CONDOMS, DIAPHRAGMS, BALLOONS, SOCKS, OR UNDERWEAR?NO LATEX ALLERGY : HAVE YOU EVER DEVELOPED ANY TYPE OF REACTION DURING OR AFTER DENTAL APPOINTMENT, VAGINAL/RECTAL EXAMINATION, SURGICAL PROCEDURE, OR ANY OTHER EXPOSURE?NO DATE ASKED : 10/24/2018 LATEX RISK : HAVE YOU EVER HAD ANY DIFFICULTY BREATHING OR HIVES AFTER EATING OR HANDLING ANY FRUITS, OR VEGETABLES; SUCH KIWI, BANANAS, STONE FRUITS, OR CHESTNUTSNO LATEX RISK : DO YOU HAVE A PREVIOUS PERSONAL HISTORY OF MORE THAN NINE SURGERIES, SPINA BIFIDA, OR REPEATED CATHERIZATIONS? NO LATEX RISK : ARE YOU FREQUENTLY EXPOSED TO LATEX PRODUCTS IN YOUR OCCUPATION?NO CAFFEINE 1 A DAY.. ADVANCE DIRECTIVE ADVANCE DIRECTIVE DISCUSSED WITH PATIENT:YES HCP ZOYA KHAN LENARD DERAS EPISCOPALIAN [address] MARITAL STATUS: . ALCOHOL SCREENING DID YOU HAVE A DRINK CONTAINING ALCOHOL IN THE PAST YEAR?NO POINTS0 INTERPRETATIONNEGATIVE SEXUAL HX HAD SEX IN THE LAST 12 MONTHS (VAGINAL, ORAL, OR ANAL)?: NO, HAVE YOU EVER HAD AN STD?: NO. REVIEWED 02/09/18 1325 LASREVIEWED WITH PT 06/12/19 1420 BVREVIEWED WITH PATIENT 07/13/19 1057 NLJREVIEWED WITH PATIENT 08/31/19 1215 JSREVIEWED WITH PATIENT 09/20/19 1127 JSREVIEWED WITH PATIENT 12/11/19 1350 BV. HOSPITALIZATION/MAJOR DIAGNOSTIC PROCEDURE SURGERY RELATED ONLY REVIEW OF SYSTEMS REVIEWED BY: PROVIDER: NIRAV SHEN . CONSTITUTIONAL: ANY CHANGE IN YOUR MEDICAL CONDITION? NO . CHILLS NO . FEVER NO . INFECTION: DO YOU HAVE NEW INFECTIONS? NO . DO YOU HAVE HISTORY OF MRSA? NO . MUSCULOSKELETAL: ANY NEW PATTERNS OF PAIN OR NUMBNESS? YES- INCREASED PAIN RIGHT SIDE OF BACK . GASTROENTEROLOGY: ANY NEW CHANGE IN BOWEL CONTROL? NO . GENITOURINARY: ANY NEW CHANGE IN BLADDER CONTROL? NO . IS THERE A CHANCE YOU COULD BE ? NO . HEMATOLOGY/LYMPH: DO YOU TAKE ANY BLOOD THINNERS? (FOR EXAMPLE- COUMADIN, PLAVIX, AGGRENOX, PLATEL, PRADAXA, OR XARELTO) YES- WARAFARIN 3 MG DAILY . WHEN WAS YOUR LAST DOSE? DATE: 01/24/2020 TIME: 2330 . NEUROLOGY: HAVE YOU FALLEN IN THE PAST 12 MONTHS? NO . ANY NEW EXTREMITY NUMBNESS OR WEAKNESS? NO . CARDIOLOGY: DO YOU HAVE A PACEMAKER OR DEFIBRILLATOR? NO . RESPIRATORY: HAVE YOU BEEN SICK IN THE PAST WEEK? NO . FEVER NO . FLU LIKE SYMPTOMS? NO . COUGH NO . INTEGUMENTARY: DO YOU HAVE ANY RASHES OR OPEN SORES? NO . ALLERGIC/IMMUNO: ARE YOU ALLERGIC TO IV DYE? NO . ANY NEW ALLERGIES? NO . PSYCHIATRIC: DO YOU HAVE THOUGHTS OF HURTING YOURSELF OR SOMEONE ELSE? NO . ARE YOU ABUSED, NEGLECTED, OR IN AN UNSAFE ENVIRONMENT? NO . ENDOCRINOLOGY: ARE YOU DIABETIC? NO . OTHER: DO YOU NEED ANY PRESCRIPTIONS? YES . IF YES, PLEASE LIST: BELBUCA- STATES IT DOES NOT WORK . ANY NEW PROBLEMS WITH YOUR MEDICATIONS? NO . WHEN DID YOU LAST EAT? ____ . WHEN DID YOU LAST DRINK? ____ . WHAT DID YOU LAST DRINK? ____ . NAME OF PERSON DRIVING YOU HOME? ____ . DO YOU HAVE ANY OTHER QUESTIONS OR CONCERNS YES- WHY HAS THE PAIN SPREAD SO MUCH . VITAL SIGNS WT 205.2 LBS, HT 60.5", BMI 39.41 INDEX, BP 185/81 MM HG, HR 85 /MIN, RR 19 /MIN, TEMP 98.3 F, OXYGEN SAT % 95%, SAFE IN ENV? (Y/N) YES, NA INITIALS MS 1343, REVIEWED BY: JAYY. EXAMINATION GENERAL EXAMINATION: GENERALNO ACUTE DISTRESS, WELL NOURISHED AND HYDRATED. PSYCHAPPROPRIATE MOOD AND AFFECT . LUNGS:CLEAR TO AUSCULTATION BILATERALLY, NO WHEEZES, RHONCHI, RALES. HEART:NO MURMURS, REGULAR RATE AND RHYTHM. BACK:POINT TENDER RIGHT LOW BACK, SURROUNDING SKIN SHOWS NO ERYTHEMA, ECCHYMOSIS, INCREASED WARMTH, AND/OR SKIN ERUPTIONS NOTED. . 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 GIVEN PRESENTING SYMPTOMS AND RESULTS OF PHYSICAL EXAMINATION RECOMMENDED TPI OF THE LOW BACK ON THE RIGHT SIDE, GETTING AN UPDATED MRI, INCREASING BELBUCA TO 75 MCG TWICE A DAY, AND REFERRAL TO PT FOR MYOFASCIAL RELEASE. PATIENT HAS EXPRESSED UNDERSTANDING OF AND WAS IN AGREEMENT WITH TREATMENT PLAN. GIVEN TIME TO ASK QUESTIONS AND EXPRESS CONCERNS., ISTOP REGISTRY REVIEWED AND DEMONSTRATES COMPLLIANCE. (REF # [id number] ) BRINGS IN MEDICATIONS WHICH IS APPROPRIATE FOR WHAT WAS DISPENSED. RECENT URINE TOXICOLOGY REVIEWED. NO UNAUTHORIZED MEDICATIONS. NO ILLICIT SUBSTANCES AND PRESCRIBED MEDICATIONS WERE PRESENT. OTHERS NOTES: INFORMATION REVIEWED AND VERIFIED WITH PT 01/25/2020 1413 NLJ. PREVENTIVE MEDICINE PAIN CLINIC TEACHING: PROCEDURE TEACHING TRIGGER POINT INJECTION PROCEDURE REVIEWED WITH PT, PT VERBLAIZES UNDERSTANDING OF PROCEDURE. DECLINED PRINTED INFORMATION. PT ALSO VERBLAIZES UNDERSTANDING OF PRE PROCEDURE INSTRUCTIONS REVIEWED. 01/25/2020 1537 NLJ. PROCEDURE CODES FA211 ESTABILISHED PATIENT [facility] CHARGE DISPOSITION & COMMUNICATION FOLLOW UP POSTPROCEDURE (REASON: RIGHT LOW BACK TPI, MRI LS) ELECTRONICALLY SIGNED BY DAVEY CARVER ON 01/26/2020 AT 09:06 AM EST DISCLAIMER : THIS IS A VISIT SUMMARY EXTRACTED FROM THE [id number] CHART. IT IS NOT A COPY OF THE [id number] PROGRESS NOTE. REGI
== END ==
LOC: M PAIN 13:15
PROVIDERS: ATTEND Family Medicine
DX: M47.817 Spondylosis without myelopathy or radiculopathy, lumbosacral region (principal); M79.18 Myalgia, other site; E78.5 Hyperlipidemia, unspecified; Z86.59 Personal history of other mental and behavioral disorders; G47.00 Insomnia, unspecified; E03.9 Hypothyroidism, unspecified; Z86.711 Personal history of pulmonary embolism; Z87.891 Personal history of nicotine dependence; Z88.2 Allergy status to sulfonamides; Z91.09 Other allergy status, other than to drugs and biological substances; Z79.01 Long term (current) use of anticoagulants; Z79.82 Long term (current) use of aspirin; Z79.891 Long term (current) use of opiate analgesic; Z79.899 Other long term (current) drug therapy

== ENCOUNTER → 2020-01-30 | Outpatient (CLI) | payer MEDICARE, OTHER ==
[~2020-01-30] MED LIST changes: +BUPIVACAINE HCL 0.25% 30 ML VIAL As Ordered ONE; +NORCO, ANEXSIA 5/325MG TABLET (HYDROcodone/ACETAMINOPHEN) As Ordered ONE; +TRIAMCINOLONE ACETONIDE SUSP 40 MG/ML VIAL (J3301) As Ordered ONE; +diazePAM 2 MG TAB As Ordered ONE
--- NOTE | 2020-02-02 00:22 | ECWPNPC ---
PATIENT NAME: NIKOLAY HAMILTON : 1940 GENDER: FEMALE VISIT DATE: 01/30/2020 DISCHARGE DATE: 01/30/201536 VISIT LOCKED DATE TIME: PHYSICIAN: AUSTIN SALAZAR MD RESOURCE: AUSTIN SALAZAR MD REASON FOR APPOINTMENT 1. TPI RIGHT LOW BACK/THORACIC HISTORY OF PRESENT ILLNESS HISTORY OF PRESENT ILLNESS: PAIN THE PATIENT DESCRIBES THE PAIN... FALL RISK SCREENING: SCREENING :NO FALLS REPORTED IN THE LAST YEAR CURRENT MEDICATIONS TAKING LIVALO 2 MG TABLET 1 TABLET ORALLY ONCE A DAY AT BEDTIME, NOTES: 01/29 9AM TAKING ASPIR-81 81 MG TABLET DELAYED RELEASE 1 TABLET ORALLY ONCE A DAY, NOTES: 01/29 8AM TAKING NORTRIPTYLINE HCL 10 MG CAPSULE 1 CAPSULE ORALLY DAILY, NOTES: 01/29 8AM TAKING ZOLPIDEM TARTRATE 5 MG TABLET 1 TABLET AT BEDTIME ORALLY ONCE A DAY, NOTES: 01/29 8AM TAKING LEVOTHYROXINE SODIUM 75 MCG TABLET 1 TABLET ON AN EMPTY STOMACH IN THE MORNING ORALLY ONCE A DAY, NOTES: 01/29 7AM TAKING CITALOPRAM HYDROBROMIDE 20 MG TABLET 1 TABLET ORALLY ONCE A DAY, NOTES: 01/29 8AM TAKING ALPRAZOLAM 0.5 MG TABLET 1 TABLET ORALLY THREE TIMES A DAY, NOTES: 01/29 8AM TAKING BUPROPION HCL ER (XL) 150 MG TABLET EXTENDED RELEASE 24 HOUR 1 TABLET IN THE MORNING ORALLY ONCE A DAY, NOTES: 01/29 8AM TAKING VITAMIN D (ERGOCALCIFEROL) 2000 UNIT CAPSULE ORALLY , NOTES: 01/29 8AM TAKING MULTI FOR HER 50+ - TABLET ORALLY , NOTES: 01/29 8AM TAKING WARFARIN SODIUM 3 MG TABLET 1.5 TABLETS EVERY DAY EXCEPT WEDNESDAY TAKES 2 TABLETS ORALLY ONCE A DAY, NOTES: 01/28 9PM TAKING BELBUCA 75 MCG FILM 1 FILM TO THE GUM BUCALLY EVERY 12 HRS, NOTES: 01/28 1AM NOT-TAKING GABAPENTIN 100 MG CAPSULE 1 CAPSULE ORALLY THREE TIMES A DAY, NOTES: TAKES NEEDED NOT-TAKING SUPER B COMPLEX W/ PROBIOTIC DAILY, NOTES: 0930 NOT-TAKING LIVALO 1 MG TABLET 2 TAB ORAL DAILY MEDICATION LIST REVIEWED AND RECONCILED WITH THE PATIENT PAST MEDICAL HISTORY HYPERLIPIDEMIA ANXIETY DEGENERATIVE DISC DISEASE INSOMNIA HYPOTHYROIDISM CATARACTS 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 KIDNEY STONES 2014, 2018 ACUTE ON CHRONIC FATIGUE SYNDROME ALLERGIES SULFA: HIVES - ALLERGY TAPE ADHESIVE: HIVES - ALLERGY SURGICAL HISTORY TONSILLECTOMY 194 ADENOIDECTOMY 194 RIB TAKEN OUT GANGLION CYST X3 SHOULDER SURGERY CHOLECYSTECTOMY KIDNEY STONES REMOVED X2 ANKLE SURGERY LEFT THUMB SURGERY LITHOTRIPSY 05/2014 RIGHT EYE CATARACT SURGERY 06/18/15 LEFT EYE CATARACT SURGERY 08/2015 CYSTOSCOPY WITH STENT REMOVAL 11/30/2018 CYSTOSCOPY WITH STENT PLACEMENT 11/08/18 LEFT EYE CATARACT SURGERY 08/2019 FAMILY HISTORY FATHER: 66 YRS MOTHER: 75 YRS, [place] SIBLINGS: 78 YRS, DIAGNOSED WITH UNSPECIFIED HEART DISEASE 1 BROTHER(S) . 1DAUGHTER(S) . BROTHER FROM COLON\\/PANCREATIC CANCER. SOCIAL HISTORY GENERAL: TOBACCO USE ARE YOU A:FORMER SMOKER HOW LONG HAS IT BEEN SINCE YOU LAST SMOKED?1-5 YEARS HIV / HEP-C SCREENING HIV TEST OFFERED TO PATIENT:YES HEP-C TEST OFFERED TO PATIENT:YES EDUCATION LEVEL OF EDUCATION:NOT FINISHED COLLEGE DIET: REGULAR. LANGUAGE LANGUAGES SPOKEN:GREEK DOMESTIC VIOLENCE NONE. RECREATIONAL DRUG USE DENIES. EXERCISE: WALKS. 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 PROCEDURE INSTRUCTIONS HAS THE PATIENT BEEN EDUCATED REGARDING PAIN, THE RISK FOR PAIN, THE IMPORTANCE OF EFFECTIVE PAIN MANAGEMENT, AND THE PAIN ASSESSMENT PROCESS?YES LATEX QUESTIONNAIRE LATEX ALLERGY : HAVE YOU EVER DEVELOPED ANY TYPE OF REACTION AFTER HANDLING LATEX PRODUCTS SUCH RUBBER GLOVES, CONDOMS, DIAPHRAGMS, BALLOONS, SOCKS, OR UNDERWEAR?NO LATEX ALLERGY : HAVE YOU EVER DEVELOPED ANY TYPE OF REACTION DURING OR AFTER DENTAL APPOINTMENT, VAGINAL/RECTAL EXAMINATION, SURGICAL PROCEDURE, OR ANY OTHER EXPOSURE?NO LATEX RISK : HAVE YOU EVER HAD ANY DIFFICULTY BREATHING OR HIVES AFTER EATING OR HANDLING ANY FRUITS, OR VEGETABLES; SUCH KIWI, BANANAS, STONE FRUITS, OR CHESTNUTSNO LATEX RISK : DO YOU HAVE A PREVIOUS PERSONAL HISTORY OF MORE THAN NINE SURGERIES, SPINA BIFIDA, OR REPEATED CATHERIZATIONS? NO LATEX RISK : ARE YOU FREQUENTLY EXPOSED TO LATEX PRODUCTS IN YOUR OCCUPATION?NO DATE ASKED : 01/30/2020 CAFFEINE 1 A DAY.. ADVANCE DIRECTIVE ADVANCE DIRECTIVE DISCUSSED WITH PATIENT:YES HCP ZOYA KHAN [phone] LENARD DERAS MORAVIAN [id number] [place] MARITAL STATUS: . ALCOHOL SCREENING DID YOU HAVE A DRINK CONTAINING ALCOHOL IN THE PAST YEAR?NO POINTS0 INTERPRETATIONNEGATIVE SEXUAL HX HAD SEX IN THE LAST 12 MONTHS (VAGINAL, ORAL, OR ANAL)?: NO, HAVE YOU EVER HAD AN STD?: NO. HOSPITALIZATION/MAJOR DIAGNOSTIC PROCEDURE SURGERY RELATED ONLY REVIEW OF SYSTEMS REVIEWED BY: PROVIDER: . CONSTITUTIONAL: ANY CHANGE IN YOUR MEDICAL CONDITION? NO . CHILLS NO . FEVER NO . INFECTION: DO YOU HAVE NEW INFECTIONS? NO . DO YOU HAVE HISTORY OF MRSA? NO . MUSCULOSKELETAL: ANY NEW PATTERNS OF PAIN OR NUMBNESS? NO . GASTROENTEROLOGY: ANY NEW CHANGE IN BOWEL CONTROL? NO . GENITOURINARY: ANY NEW CHANGE IN BLADDER CONTROL? NO . IS THERE A CHANCE YOU COULD BE ? NO . HEMATOLOGY/LYMPH: DO YOU TAKE ANY BLOOD THINNERS? (FOR EXAMPLE- COUMADIN, PLAVIX, AGGRENOX, PLATEL, PRADAXA, OR XARELTO) YES . WHEN WAS YOUR LAST DOSE? DATE: TIME:01/29/20 0100 . NEUROLOGY: HAVE YOU FALLEN IN THE PAST 12 MONTHS? NO . ANY NEW EXTREMITY NUMBNESS OR WEAKNESS? NO . CARDIOLOGY: DO YOU HAVE A PACEMAKER OR DEFIBRILLATOR? NO . RESPIRATORY: HAVE YOU BEEN SICK IN THE PAST WEEK? NO . FEVER NO . FLU LIKE SYMPTOMS? NO . COUGH NO . INTEGUMENTARY: DO YOU HAVE ANY RASHES OR OPEN SORES? NO . ALLERGIC/IMMUNO: ARE YOU ALLERGIC TO IV DYE? NO . ANY NEW ALLERGIES? NO . PSYCHIATRIC: DO YOU HAVE THOUGHTS OF HURTING YOURSELF OR SOMEONE ELSE? NO . ARE YOU ABUSED, NEGLECTED, OR IN AN UNSAFE ENVIRONMENT? NO . ENDOCRINOLOGY: ARE YOU DIABETIC? NO . OTHER: DO YOU NEED ANY PRESCRIPTIONS? NO . IF YES, PLEASE LIST: ____ . ANY NEW PROBLEMS WITH YOUR MEDICATIONS? NO . WHEN DID YOU LAST EAT? ____09 BREAKFAST BAR . WHEN DID YOU LAST DRINK? ____THIS MORNING @930 . WHAT DID YOU LAST DRINK? ____COFFEE . NAME OF PERSON DRIVING YOU HOME? ____YANIRA [phone] . DO YOU HAVE ANY OTHER QUESTIONS OR CONCERNS NO . VITAL SIGNS WT 205.8 LBS, HT 60.5", BMI 39.53 INDEX, BP 158/72 MM HG, HR 77 /MIN, RR 18 /MIN, TEMP 96.3 F, OXYGEN SAT % 95%, SAFE IN ENV? (Y/N) YES, NA INITIALS TL 1353, REVIEWED BY: DS. ASSESSMENTS MYALGIA, OTHER SITE - M79.18 (PRIMARY) PROCEDURES PN TRIGGER POINT INJECTION WITH STEROIDS PRE PROCEDURE DIAGNOSIS 1. MYALGIA 2. PAIN AT RIGHT THORACIC AREA AND RIGHT LUMBAR AREA. POST PROCEDURE DIAGNOSIS 1. MYALGIA 2. PAIN AT RIGHT THORACIC AREA AND RIGHT LUMBAR AREA. PROCEDURE TRIGGER POINT INJECTION AT RIGHT THORACIC AREA AND RIGHT LUMBAR AREA. SURGEON DR. 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 I EVALUATED THE PATIENT AND REVIEWED THE CHART. THERE IS EVIDENCE OF BANDS OF TISSUE WITH RESTRICTION OF MOVEMENT AND PRESENCE OF TRIGGER POINT AT THE AFFECTED AREA. I WENT OVER THE RISKS, ALTERNATIVES, AND BENEFITS ASSOCIATED WITH THIS PROCEDURE. THE PATIENT WOULD LIKE TO PROCEED AND GIVE CONSENT TO PERFORMED THE PROCEDURE. THE PATIENT DENIES UNEXPLAINABLE WEIGHT LOSS, FEVER, CHILLS, OR NEW CHANGES IN URINARY OR BOWEL CONTROL DESCRIPTION OF PROCEDURE THE PATIENT WAS BROUGHT TO THE PROCEDURE ROOM AND PLACED IN THE SITTING POSITION. THE AREA WAS CLEANED WITH ALCOHOL. THE PROCEDURE WAS DONE USING ASEPTIC STERILE TECHNIQUE. I CHECKED LATERALITY AND THE LEVEL WHERE THE PROCEDURE WAS GOING TO BE PERFORMED WITH THE PATIENT AND THE SUPPORTING STAFF AT THE MOMENT OF THE TIME OUT IN THE PROCEDURE ROOM. USING A 25-GAUGE NEEDLE, TRIGGER POINTS WERE INJECTED AT THE RIGHT THORACIC AREA AND RIGHT LUMBAR AREA WITH A TOTAL OF 40 ML OF BUPIVACAINE 0.25% AND KENALOG 40 MG. THERE WAS NO EVIDENCE OF BLOOD, PARESTHESIA OR CEREBROSPINAL FLUID DURING THE PROCEDURE. THE PATIENT WAS SENT TO THE RECOVERY ROOM. THE PATIENT WAS MOVING THE EXTREMITIES AND DOING WELL. THERE WAS NO COMPLICATION DURING THE PROCEDURE POST PROCEDURE NOTE THE PATIENT WILL BE SEEN IN A FOLLOW UP IN THE NEXT FEW WEEKS. I AM LOOKING FOR LONG LASTING PAIN RELIEF FOR THE PATIENT WITH THESE INJECTIONS. INSTRUCTIONS WERE GIVEN, QUESTIONS WERE ANSWERED, AND THE PATIENT EXPRESSED UNDERSTANDING AND AGREES WITH THE PLAN. I, YANIRA FONTAINE, DOCUMENTED THE ABOVE INFORMATION ACTING A SCRIBE FOR DR. SALAZAR. I HAVE REVIEWED THE ABOVE DOCUMENT, WRITTEN BY YANIRA HUNTER AND I VERIFY THAT IT IS ACCURATE. PROCEDURE CODES 94284 INJ TRIGGER POINT / [facility] [place] DISPOSITION & COMMUNICATION FOLLOW UP 3 WEEKS ELECTRONICALLY SIGNED BY AUSTIN SALAZAR MD, MD ON 02/01/2020 AT 05:12 PM EDT DISCLAIMER : THIS IS A VISIT SUMMARY EXTRACTED FROM THE [employer] CHART. IT IS NOT A COPY OF THE [employer] PROGRESS NOTE. REGI
== END ==
LOC: M PAIN 13:45
PROVIDERS: ATTEND Anesthesiology
DX: M79.18 Myalgia, other site (principal); E78.5 Hyperlipidemia, unspecified; Z86.59 Personal history of other mental and behavioral disorders; G47.00 Insomnia, unspecified; E03.9 Hypothyroidism, unspecified; Z86.711 Personal history of pulmonary embolism; Z86.73 Personal history of transient ischemic attack (TIA), and cerebral infarction without residual deficits; Z87.891 Personal history of nicotine dependence; Z88.2 Allergy status to sulfonamides; Z91.09 Other allergy status, other than to drugs and biological substances; Z79.82 Long term (current) use of aspirin; Z79.891 Long term (current) use of opiate analgesic; Z79.899 Other long term (current) drug therapy
CPT/HCPCS: 20552; J3301

== ENCOUNTER → 2020-02-03 | Outpatient (CLI) | payer MEDICARE, BC, OTHER ==
[~2020-02-03] MED LIST changes: -BUPIVACAINE HCL 0.25% 30 ML VIAL As Ordered ONE; -NORCO, ANEXSIA 5/325MG TABLET (HYDROcodone/ACETAMINOPHEN) As Ordered ONE; -TRIAMCINOLONE ACETONIDE SUSP 40 MG/ML VIAL (J3301) As Ordered ONE; -diazePAM 2 MG TAB As Ordered ONE
--- NOTE | 2020-02-03 15:25 | REPVR ---
PROCEDURE INFORMATION: Exam: MR Lumbar Spine Without Contrast. Exam date and time: 02/03/2020 12:48 PM Age: 79 years old Clinical indication: Low back pain; Additional info: Spondylosis TECHNIQUE: Imaging protocol: Multiplanar magnetic resonance images of the lumbar spine without intravenous contrast. COMPARISON: MRI-Spine, L.S. without con 06/29/2017 2:44 PM FINDINGS: Vertebrae: The lumbar vertebral bodies are normal in height , signal intensity and alignment.No acute fracture or dislocation is seen. Small marginal osteophytes are noted at all the lumbar levels. There is a small hemangioma in the L5 vertebral body. Marrow: There is a normal proportion of hematopoietic bone marrow and fat for this patient's age.There is no evidence of abnormal bone marrow signal intensity to suggest contusion or infection. Spinal epidural space: There is no evidence of epidural masses or hemorrhage. Spinal cord: The conus medullaris is normal. The cauda equina nerve roots demonstrate no crowding or displacement. L1-L2: There is a mild diffuse posterior bulge causing mild effacement of the thecal sac.The spinal canal and neural foramina are patent and without significant stenosis. L2-L3: There is a mild diffuse posterior bulge causing mild effacement of the thecal sac.The spinal canal and neural foramina are patent and without significant stenosis. L3-L4: There is a mild diffuse posterior bulge causing mild effacement of the thecal sac.The spinal canal and neural foramina are patent and without significant stenosis. L4-L5: There is a mild diffuse posterior bulge causing mild effacement of the thecal sac.The facet joints demonstrate marked degenerative narrowing and sclerosis. There is thickening of the ligamentum flavum. 4 mm synovial cyst is noted anterior to the right facet joint.There is no evidence of spinal canal narrowing.There is mild right foraminal stenosis. L5-S1: There is a mild diffuse posterior bulge causing mild effacement of the thecal sac.The facet joints demonstrate moderate degenerative narrowing and sclerosis. The spinal canal and neural foramina are patent and without significant stenosis. Soft tissues: The prevertebral soft tissues appear normal. IMPRESSION: MRI of the lumbar spine reveals multilevel degenerative spondylitic changes and degenerative disc disease as described above. There is severe facet arthropathy at L4-L5 level. Electronically signed by: Kumar Jacobo On 02/03/2020 15:25:33 PM
== END ==
LOC: M RAD 11:34
PROVIDERS: ATTEND Family Medicine
DX: M47.817 Spondylosis without myelopathy or radiculopathy, lumbosacral region (principal)

== ENCOUNTER → 2020-02-27 | Outpatient (CLI) | payer MEDICARE, OTHER ==
--- NOTE | 2020-02-29 01:54 | ECWPNPC ---
PATIENT NAME: NIKOLAY HAMILTON : 1940 GENDER: FEMALE VISIT DATE: 02/27/2020 DISCHARGE DATE: 02/27/20 1003 VISIT LOCKED DATE TIME: PHYSICIAN: JOANNE SANTAMARIA RESOURCE: JOANNE SANTAMARIA REASON FOR APPOINTMENT FOR THIS VISIT OF MRI REVIEW WELL- SHE WANTS TO BE SEEN IN THE OFFICE HISTORY OF PRESENT ILLNESS HISTORY OF PRESENT ILLNESS: PAIN THE PATIENT DESCRIBES THE PAINDURING THE LAST MONTH SEVERITY - PAIN SCORE OF PT STATED NO PAIN AT THIS TIME. LOCATIONSTHORAX, LUMBAR 71-YEAR-OLD FEMALE IN FOR POST TPI FOLLOW-UP. SHE FEELS THE PROCEDURE WORKED WELL OVERALL RATING HER PAIN PREPROCEDURE AT A 10 OUT OF 10 AND POSTPROCEDURE AT A 2 OUT OF 10. SHE FURTHER STATES THE PROCEDURE CONTINUES TO HELP HER TODAY. PATIENT HAD AN MRI RECENTLY WHICH WILL BE REVIEWED WITH PATIENT TODAY. FALL RISK SCREENING: SCREENING :NO FALLS REPORTED IN THE LAST YEAR CURRENT MEDICATIONS TAKING LIVALO 2 MG TABLET 1 TABLET ORALLY ONCE A DAY AT BEDTIME, NOTES: 01/29 9AM TAKING ASPIR-81 81 MG TABLET DELAYED RELEASE 1 TABLET ORALLY ONCE A DAY, NOTES: 01/29 8AM TAKING NORTRIPTYLINE HCL 10 MG CAPSULE 1 CAPSULE ORALLY DAILY, NOTES: 01/29 8AM TAKING ZOLPIDEM TARTRATE 5 MG TABLET 1 TABLET AT BEDTIME ORALLY ONCE A DAY, NOTES: 01/29 8AM TAKING LEVOTHYROXINE SODIUM 75 MCG TABLET 1 TABLET ON AN EMPTY STOMACH IN THE MORNING ORALLY ONCE A DAY, NOTES: 01/29 7AM TAKING CITALOPRAM HYDROBROMIDE 20 MG TABLET 1 TABLET ORALLY ONCE A DAY, NOTES: 01/29 8AM TAKING ALPRAZOLAM 0.5 MG TABLET 1 TABLET ORALLY THREE TIMES A DAY, NOTES: 01/29 8AM TAKING BUPROPION HCL ER (XL) 150 MG TABLET EXTENDED RELEASE 24 HOUR 1 TABLET IN THE MORNING ORALLY ONCE A DAY, NOTES: 01/29 8AM TAKING VITAMIN D (ERGOCALCIFEROL) 2000 UNIT CAPSULE ORALLY , NOTES: 01/29 8AM TAKING MULTI FOR HER 50+ - TABLET ORALLY , NOTES: 01/29 8AM TAKING WARFARIN SODIUM 3 MG TABLET 1.5 TABLETS EVERY DAY EXCEPT WEDNESDAY TAKES 2 TABLETS ORALLY ONCE A DAY, NOTES: 01/28 9PM TAKING BELBUCA 75 MCG FILM 1 FILM TO THE GUM BUCALLY EVERY 12 HRS, NOTES: 01/28 1AM NOT-TAKING GABAPENTIN 100 MG CAPSULE 1 CAPSULE ORALLY THREE TIMES A DAY, NOTES: TAKES NEEDED NOT-TAKING SUPER B COMPLEX W/ PROBIOTIC DAILY, NOTES: 0930 NOT-TAKING LIVALO 1 MG TABLET 2 TAB ORAL DAILY MEDICATION LIST REVIEWED AND RECONCILED WITH THE PATIENT PAST MEDICAL HISTORY HYPERLIPIDEMIA ANXIETY DEGENERATIVE DISC DISEASE INSOMNIA HYPOTHYROIDISM CATARACTS 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 KIDNEY STONES 2017 ACUTE ON CHRONIC FATIGUE SYNDROME ALLERGIES SULFA: HIVES - ALLERGY TAPE ADHESIVE: HIVES - ALLERGY SURGICAL HISTORY TONSILLECTOMY 1945 ADENOIDECTOMY 1945 RIB TAKEN OUT GANGLION CYST X3 SHOULDER SURGERY CHOLECYSTECTOMY KIDNEY STONES REMOVED X2 ANKLE SURGERY LEFT THUMB SURGERY LITHOTRIPSY 05/2014 RIGHT EYE CATARACT SURGERY 06/18/15 LEFT EYE CATARACT SURGERY 08/2015 CYSTOSCOPY WITH STENT REMOVAL 11/30/2018 CYSTOSCOPY WITH STENT PLACEMENT 11/08/18 LEFT EYE CATARACT SURGERY 08/2019 FAMILY HISTORY FATHER: 66 YRS MOTHER: 75 YRS, [place] SIBLINGS: 78 YRS, DIAGNOSED WITH UNSPECIFIED HEART DISEASE 1 BROTHER(S) . 1DAUGHTER(S) . BROTHER FROM COLON\\/PANCREATIC CANCER. SOCIAL HISTORY GENERAL: TOBACCO USE ARE YOU A:FORMER SMOKER HOW LONG HAS IT BEEN SINCE YOU LAST SMOKED?1-5 YEARS HIV / HEP-C SCREENING HIV TEST OFFERED TO PATIENT:YES HEP-C TEST OFFERED TO PATIENT:YES EDUCATION LEVEL OF EDUCATION:NOT FINISHED COLLEGE DIET: REGULAR. LANGUAGE LANGUAGES SPOKEN:[place] DOMESTIC VIOLENCE NONE. RECREATIONAL DRUG USE DENIES. EXERCISE: WALKS. 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 PROCEDURE INSTRUCTIONS HAS THE PATIENT BEEN EDUCATED REGARDING PAIN, THE RISK FOR PAIN, THE IMPORTANCE OF EFFECTIVE PAIN MANAGEMENT, AND THE PAIN ASSESSMENT PROCESS?YES LATEX QUESTIONNAIRE LATEX ALLERGY : HAVE YOU EVER DEVELOPED ANY TYPE OF REACTION AFTER HANDLING LATEX PRODUCTS SUCH RUBBER GLOVES, CONDOMS, DIAPHRAGMS, BALLOONS, SOCKS, OR UNDERWEAR?NO LATEX ALLERGY : HAVE YOU EVER DEVELOPED ANY TYPE OF REACTION DURING OR AFTER DENTAL APPOINTMENT, VAGINAL/RECTAL EXAMINATION, SURGICAL PROCEDURE, OR ANY OTHER EXPOSURE?NO DATE ASKED : 01/30/2020 LATEX RISK : HAVE YOU EVER HAD ANY DIFFICULTY BREATHING OR HIVES AFTER EATING OR HANDLING ANY FRUITS, OR VEGETABLES; SUCH KIWI, BANANAS, STONE FRUITS, OR CHESTNUTSNO LATEX RISK : DO YOU HAVE A PREVIOUS PERSONAL HISTORY OF MORE THAN NINE SURGERIES, SPINA BIFIDA, OR REPEATED CATHERIZATIONS? NO LATEX RISK : ARE YOU FREQUENTLY EXPOSED TO LATEX PRODUCTS IN YOUR OCCUPATION?NO CAFFEINE 1 A DAY.. ADVANCE DIRECTIVE ADVANCE DIRECTIVE DISCUSSED WITH PATIENT:YES HCP ZOYA KHAN LENARD DERAS UATSDIN [id number] [facility] MARITAL STATUS: . ALCOHOL SCREENING DID YOU HAVE A DRINK CONTAINING ALCOHOL IN THE PAST YEAR?NO POINTS0 INTERPRETATIONNEGATIVE SEXUAL HX HAD SEX IN THE LAST 12 MONTHS (VAGINAL, ORAL, OR ANAL)?: NO, HAVE YOU EVER HAD AN STD?: NO. HOSPITALIZATION/MAJOR DIAGNOSTIC PROCEDURE SURGERY RELATED ONLY REVIEW OF SYSTEMS REVIEWED BY: PROVIDER: NIRAV MARISCAL-Rodrick . CONSTITUTIONAL: ANY CHANGE IN YOUR MEDICAL CONDITION? NO . CHILLS NO . FEVER NO . INFECTION: DO YOU HAVE NEW INFECTIONS? NO . DO YOU HAVE HISTORY OF MRSA? NO . MUSCULOSKELETAL: ANY NEW PATTERNS OF PAIN OR NUMBNESS? NO . GASTROENTEROLOGY: ANY NEW CHANGE IN BOWEL CONTROL? NO . GENITOURINARY: ANY NEW CHANGE IN BLADDER CONTROL? NO . IS THERE A CHANCE YOU COULD BE ? NO . HEMATOLOGY/LYMPH: DO YOU TAKE ANY BLOOD THINNERS? (FOR EXAMPLE- COUMADIN, PLAVIX, AGGRENOX, PLATEL, PRADAXA, OR XARELTO) NO . WHEN WAS YOUR LAST DOSE? DATE: TIME: . NEUROLOGY: HAVE YOU FALLEN IN THE PAST 12 MONTHS? NO . ANY NEW EXTREMITY NUMBNESS OR WEAKNESS? NO . CARDIOLOGY: DO YOU HAVE A PACEMAKER OR DEFIBRILLATOR? NO . RESPIRATORY: HAVE YOU BEEN SICK IN THE PAST WEEK? NO . FEVER NO . FLU LIKE SYMPTOMS? NO . COUGH NO . INTEGUMENTARY: DO YOU HAVE ANY RASHES OR OPEN SORES? NO . ALLERGIC/IMMUNO: ARE YOU ALLERGIC TO IV DYE? NO . ANY NEW ALLERGIES? NO . PSYCHIATRIC: DO YOU HAVE THOUGHTS OF HURTING YOURSELF OR SOMEONE ELSE? NO . ARE YOU ABUSED, NEGLECTED, OR IN AN UNSAFE ENVIRONMENT? NO . ENDOCRINOLOGY: ARE YOU DIABETIC? NO . OTHER: DO YOU NEED ANY PRESCRIPTIONS? NO . IF YES, PLEASE LIST: ____ . ANY NEW PROBLEMS WITH YOUR MEDICATIONS? NO . WHEN DID YOU LAST EAT? ____ . WHEN DID YOU LAST DRINK? ____ . WHAT DID YOU LAST DRINK? ____ . NAME OF PERSON DRIVING YOU HOME? ____ . DO YOU HAVE ANY OTHER QUESTIONS OR CONCERNS YES, DISCUSS MRI . VITAL SIGNS WT 205.8 LBS, HT 60.5", BMI 39.53 INDEX, BP 165/77 MM HG, HR 80 /MIN, RR 18 /MIN, TEMP 97.7 F, OXYGEN SAT % 92%, SAFE IN ENV? (Y/N) YES, NA INITIALS AW 0859, REVIEWED BY: GOLDEN PUCKETT LPN. EXAMINATION GENERAL EXAMINATION: GENERALNO ACUTE DISTRESS, WELL NOURISHED AND HYDRATED. PSYCHAPPROPRIATE MOOD AND AFFECT . LUNGS:CLEAR TO AUSCULTATION BILATERALLY, NO WHEEZES, RHONCHI, RALES. HEART:NO MURMURS, REGULAR RATE AND RHYTHM. ASSESSMENTS MYALGIA, OTHER SITE - M79.18 (PRIMARY) TREATMENT MYALGIA, OTHER SITE CLINICAL NOTES: 79-YEAR-OLD FEMALE IN FOR POST TPI FOLLOW-UP. GIVEN PRESENTING SYMPTOMS AND RESULTS OF PHYSICAL EXAMINATION RECOMMENDED FOLLOW-UP IN 2 MONTHS. PATIENT HAS EXPRESSED UNDERSTANDING OF AND WAS IN AGREEMENT WITH TREATMENT PLAN. GIVEN TIME TO ASK QUESTIONS AND EXPRESS CONCERNS., ISTOP REGISTRY REVIEWED AND DEMONSTRATES COMPLLIANCE. (REF # [id number] ) BRINGS IN MEDICATIONS WHICH IS APPROPRIATE FOR WHAT WAS DISPENSED. RECENT URINE TOXICOLOGY REVIEWED. NO UNAUTHORIZED MEDICATIONS. NO ILLICIT SUBSTANCES AND PRESCRIBED MEDICATIONS WERE PRESENT. PROCEDURE CODES FA211 ESTABILISHED PATIENT [facility] CHARGE DISPOSITION & COMMUNICATION FOLLOW UP 2 MONTHS (REASON: BACK PAIN) ELECTRONICALLY SIGNED BY DAVEY CARVER ON 02/28/2020 AT 01:30 PM EDT DISCLAIMER : THIS IS A VISIT SUMMARY EXTRACTED FROM THE [employer] CHART. IT IS NOT A COPY OF THE [employer] PROGRESS NOTE. [facility]
== END ==
LOC: M PAIN 08:45
PROVIDERS: ATTEND Family Medicine
DX: M79.18 Myalgia, other site (principal); E03.9 Hypothyroidism, unspecified; Z79.01 Long term (current) use of anticoagulants; Z79.82 Long term (current) use of aspirin; Z79.899 Other long term (current) drug therapy; Z87.891 Personal history of nicotine dependence; Z86.711 Personal history of pulmonary embolism

== ENCOUNTER → 2020-04-29 | Outpatient (CLI) | payer MEDICARE, OTHER ==
--- NOTE | 2020-05-01 04:29 | ECWPNPC ---
PATIENT NAME: NIKOLAY HAMILTON : 1940 GENDER: FEMALE VISIT DATE: 04/29/2020 DISCHARGE DATE: 04/29/20 1417 VISIT LOCKED DATE TIME: PHYSICIAN: JOANNE SANTAMARIA RESOURCE: JOANNE SANTAMARIA REASON FOR APPOINTMENT 1. BACK PAIN PAT DONE HISTORY OF PRESENT ILLNESS GENERAL: 71-YEAR-OLD FEMALE IN FOR CHRONIC PAIN FOLLOW-UP. SHE RATES HER PAIN CURRENTLY AT A 2 OUT OF 10 AND DESCRIBES IT THROBBING. PAIN SCREENING: PATIENT HAS A COMPLAINT OF ACUTE OR CHRONIC PAIN :YES LOCATION OF PAIN:LOW BACK INTENSITY OF PAIN (SCALE OF 1 TO 10):2 WHAT DOES YOUR PAIN FEEL LIKE:CONTINOUS, THROBBING DURATION:CONTINOUS, CONSTANT, STEADY, ALL DAY, ONLY WITH SPECIFIC ACTIVITIES PAIN IS INCREASED BY:ACTIVITIES, PROLONGED STANDING PAIN IS DECREASED BY:USE OF PAIN MEDICATIONS LYING DOWN PAIN HAS INTERFERED WITH THE FOLLOWING:MOOD, WALKING ABILITY, HOUSEWORK, RELATIONSHIP WITH OTHERS, ENJOYMENT OF LIFE PLAN/GOALS/TREATMENT/INTERVENTION/FOLLOW UP:SEE PLAN FALL RISK SCREENING: SCREENING :NO FALLS REPORTED IN THE LAST YEAR NURSING NOTE: -. DEPRESSION SCREENING: PHQ-2 (2015 EDITION) LITTLE INTEREST OR PLEASURE IN DOING THINGS?NOT AT ALL FEELING DOWN, DEPRESSED, OR HOPELESS?NOT AT ALL TOTAL SCORE0 PAIN CENTER INTAKE QUESTIONS: DO YOU HAVE A HISTORY OF MRSA? :NO DO YOU TAKE A BLOOD THINNERS? :YES WARFARIN WILL BE TAKING AT BEDTIME DO YOU HAVE ANY BLEEDING DISORDERS? :NO ANY NEW NUMBNESS OR WEAKNESS IN YOUR LEGS OR ARMS? :NO ANY PACEMAKER,DEFIBRILLATOR, OR DORSAL COLUMN STIMULATOR? :NO DO YOU HAVE ANY RASHES OR OPEN SORES? :NO ARE YOU ALLERGIC TO IV DYE? :NO ARE YOU DIABETIC? :NO ANY NEW PROBLEMS WITH YOUR MEDICATIONS? :NO HAVE YOU RECEIVED A VACCINE IN THE PAST 30 DAYS? :NO DO YOU PLAN TO RECEIVE A VACCINE IN THE NEXT 21 DAYS? :NO DO YOU NEED ANY PRESCRIPTION? :NO DO YOU TAKE ANY IMMUNOSUPPRESSIVE MEDICATIONS? :NO CURRENT MEDICATIONS TAKING LIVALO 2 MG TABLET 1 TABLET ORALLY ONCE A DAY AT BEDTIME, NOTES: 01/29 9AM TAKING ASPIR-81 81 MG TABLET DELAYED RELEASE 1 TABLET ORALLY ONCE A DAY, NOTES: 01/29 8AM TAKING NORTRIPTYLINE HCL 10 MG CAPSULE 1 CAPSULE ORALLY DAILY, NOTES: 01/29 8AM TAKING ZOLPIDEM TARTRATE 5 MG TABLET 1 TABLET AT BEDTIME ORALLY ONCE A DAY, NOTES: 01/29 8AM TAKING LEVOTHYROXINE SODIUM 75 MCG TABLET 1 TABLET ON AN EMPTY STOMACH IN THE MORNING ORALLY ONCE A DAY, NOTES: 01/29 7AM TAKING CITALOPRAM HYDROBROMIDE 20 MG TABLET 1 TABLET ORALLY ONCE A DAY, NOTES: 01/29 8AM TAKING ALPRAZOLAM 0.5 MG TABLET 1 TABLET ORALLY THREE TIMES A DAY, NOTES: 01/29 8AM TAKING BUPROPION HCL ER (XL) 150 MG TABLET EXTENDED RELEASE 24 HOUR 1 TABLET IN THE MORNING ORALLY ONCE A DAY, NOTES: 01/29 8AM TAKING VITAMIN D (ERGOCALCIFEROL) 2000 UNIT CAPSULE ORALLY , NOTES: 01/29 8AM TAKING MULTI FOR HER 50+ - TABLET ORALLY , NOTES: 01/29 8AM TAKING WARFARIN SODIUM 3 MG TABLET 1.5 TABLETS EVERY DAY EXCEPT WEDNESDAY TAKES 2 TABLETS ORALLY ONCE A DAY, NOTES: 01/28 9PM TAKING BELBUCA 75 MCG FILM 1 FILM TO THE GUM BUCALLY EVERY 12 HRS, NOTES: 01/28 1AM NOT-TAKING GABAPENTIN 100 MG CAPSULE 1 CAPSULE ORALLY THREE TIMES A DAY, NOTES: TAKES NEEDED NOT-TAKING SUPER B COMPLEX W/ PROBIOTIC DAILY, NOTES: 0930 NOT-TAKING LIVALO 1 MG TABLET 2 TAB ORAL DAILY MEDICATION LIST REVIEWED AND RECONCILED WITH THE PATIENT PAST MEDICAL HISTORY HYPERLIPIDEMIA ANXIETY DEGENERATIVE DISC DISEASE INSOMNIA HYPOTHYROIDISM CATARACTS 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 KIDNEY STONES 2017 ACUTE ON CHRONIC FATIGUE SYNDROME ALLERGIES SULFA: HIVES - ALLERGY TAPE ADHESIVE: HIVES - ALLERGY SURGICAL HISTORY TONSILLECTOMY 194 ADENOIDECTOMY 194 RIB TAKEN OUT GANGLION CYST X3 SHOULDER SURGERY CHOLECYSTECTOMY KIDNEY STONES REMOVED X2 ANKLE SURGERY LEFT THUMB SURGERY LITHOTRIPSY 05/2014 RIGHT EYE CATARACT SURGERY 06/18/15 LEFT EYE CATARACT SURGERY 08/2015 CYSTOSCOPY WITH STENT REMOVAL 11/30/2018 CYSTOSCOPY WITH STENT PLACEMENT 11/08/18 LEFT EYE CATARACT SURGERY 08/2019 FAMILY HISTORY FATHER: 66 YRS MOTHER: 75 YRS, [place] SIBLINGS: 78 YRS, DIAGNOSED WITH UNSPECIFIED HEART DISEASE 1 BROTHER(S) . 1DAUGHTER(S) . BROTHER FROM COLON\\/PANCREATIC CANCER. SOCIAL HISTORY GENERAL: TOBACCO USE ARE YOU A:FORMER SMOKER HOW LONG HAS IT BEEN SINCE YOU LAST SMOKED?1-5 YEARS LATEX QUESTIONNAIRE LATEX ALLERGY : HAVE YOU EVER DEVELOPED ANY TYPE OF REACTION AFTER HANDLING LATEX PRODUCTS SUCH RUBBER GLOVES, CONDOMS, DIAPHRAGMS, BALLOONS, SOCKS, OR UNDERWEAR?NO LATEX ALLERGY : HAVE YOU EVER DEVELOPED ANY TYPE OF REACTION DURING OR AFTER DENTAL APPOINTMENT, VAGINAL/RECTAL EXAMINATION, SURGICAL PROCEDURE, OR ANY OTHER EXPOSURE?NO LATEX RISK : HAVE YOU EVER HAD ANY DIFFICULTY BREATHING OR HIVES AFTER EATING OR HANDLING ANY FRUITS, OR VEGETABLES; SUCH KIWI, BANANAS, STONE FRUITS, OR CHESTNUTSNO LATEX RISK : DO YOU HAVE A PREVIOUS PERSONAL HISTORY OF MORE THAN NINE SURGERIES, SPINA BIFIDA, OR REPEATED CATHERIZATIONS? NO LATEX RISK : ARE YOU FREQUENTLY EXPOSED TO LATEX PRODUCTS IN YOUR OCCUPATION?NO DATE ASKED : 04/26/2020 LUNG CANCER SCREENING SMOKING STATUS:FORMER SMOKER ALCOHOL SCREENING DID YOU HAVE A DRINK CONTAINING ALCOHOL IN THE PAST YEAR?NO POINTS0 INTERPRETATIONNEGATIVE RECREATIONAL DRUG USE DENIES. CAFFEINE 1 A DAY.. SEXUAL HX HAD SEX IN THE LAST 12 MONTHS (VAGINAL, ORAL, OR ANAL)?: NO, HAVE YOU EVER HAD AN STD?: NO. 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 DIET: REGULAR. EXERCISE: WALKS. MARITAL STATUS: . PAIN CLINIC PFS, CLERGY, PUBLIC HEALTH REFERRALS PFS REFERRAL NEEDED?NO CLERGY REFERRAL NEEDED?NO PUBLIC HEALTH REFERRAL NEEDED?NO HAS THE PATIENT BEEN EDUCATED REGARDING HIS/HER PLAN OF CARE?YES PLEASE DOCUMENT ANY ADDTIONAL DETAILS.PLEASE FREE TEXT IN THE NOTES SECTION. PROCEDURE INSTRUCTIONS HAS THE PATIENT BEEN EDUCATED REGARDING PAIN, THE RISK FOR PAIN, THE IMPORTANCE OF EFFECTIVE PAIN MANAGEMENT, AND THE PAIN ASSESSMENT PROCESS?YES ADVANCE DIRECTIVE ADVANCE DIRECTIVE DISCUSSED WITH PATIENT:YES HCP ZOYA KHAN LENARD DERAS [phone] HOSPITALIZATION/MAJOR DIAGNOSTIC PROCEDURE SURGERY RELATED ONLY REVIEW OF SYSTEMS CONSTITUTIONAL: ANY RECENT FEVER OR ILLNESS NO . CHILLS NO . GASTROENTEROLOGY: BOWEL INCONTINENCE NO . ANY NEW CHANGE IN BOWEL CONTROL? NO . ABDOMINAL PAIN NO . CONSTIPATION NO . GENITOURINARY: ANY NEW CHANGE IN BLADDER CONTROL? NO . URINARY INCONTINENCE NO . CARDIOLOGY: CHEST PRESSURE NO . CHEST PAIN NO . RESPIRATORY: COUGH NO . SHORTNESS OF BREATH NO . VITAL SIGNS WT 207.2 LBS, HT 60.5", BMI 39.80 INDEX, BP 136/87 MM HG, HR 95 /MIN, RR 18 /MIN, TEMP 96.8 F, OXYGEN SAT % 95%, SAFE IN ENV? (Y/N) YES, NA INITIALS SC 13:40NANA ASUMADU MOLD INSPECTOR. EXAMINATION GENERAL EXAMINATION: GENERALNO ACUTE DISTRESS, WELL NOURISHED AND HYDRATED. PSYCHAPPROPRIATE MOOD AND AFFECT . LUNGS:CLEAR TO AUSCULTATION BILATERALLY, NO WHEEZES, RHONCHI, RALES. HEART:NO MURMURS, REGULAR RATE AND RHYTHM. BACK: BILATERAL SI JOINT TENDERNESS. ASSESSMENTS BILATERAL SACROILIITIS - M46.1 (PRIMARY) TREATMENT BILATERAL SACROILIITIS NOTES: BILATERAL SIJ EDUCATION REGARDING SIJ PRINTED CAW DAVEY-Rodrick . CLINICAL NOTES: 79-YEAR-OLD FEMALE IN FOR CHRONIC PAIN FOLLOW-UP. GIVEN PRESENTING SYMPTOMS AND RESULTS OF PHYSICAL EXAMINATION RECOMMEND BILATERAL SIJ WITH POSTPROCEDURAL FOLLOW-UP. PATIENT HAS EXPRESSED UNDERSTANDING OF AND WAS IN AGREEMENT WITH TREATMENT PLAN. GIVEN TIME TO ASK QUESTIONS AND EXPRESS CONCERNS. PROCEDURE CODES FA211 ESTABILISHED PATIENT [facility] CHARGE DISPOSITION & COMMUNICATION FOLLOW UP POST PROCEDURE (REASON: BILATERAL SIJ) ELECTRONICALLY SIGNED BY DAVEY CARVER ON 04/30/2020 AT 08:33 AM EDT DISCLAIMER : THIS IS A VISIT SUMMARY EXTRACTED FROM THE [employer] CHART. IT IS NOT A COPY OF THE [employer] PROGRESS NOTE. MTDD
== END ==
LOC: M PAIN 13:30
PROVIDERS: ATTEND Family Medicine
DX: M46.1 Sacroiliitis, not elsewhere classified (principal)

== ENCOUNTER → 2020-05-26 | Outpatient (CLI) | payer MEDICARE, OTHER | LOC: M LABSMTC 11:00 | PROVIDERS: ATTEND Anesthesiology | DX: Z03.818 Encounter for observation for suspected exposure to other biological agents ruled out (principal) | CPT/HCPCS: C9803; U0003 ==

== ENCOUNTER → 2020-05-29 | Outpatient (CLI) | payer MEDICARE, BC, OTHER ==
[~2020-05-29] MED LIST changes: +BUPIVACAINE HCL 0.25% 30ML VIAL As Ordered ONE; +ISOVUE-M 300 61% 15ML VIAL As Ordered ONE; +LIDOCAINE 1% SDV 30ML VIAL As Ordered ONE; +NORCO, ANEXSIA 5/325MG TABLET (HYDROcodone/ACETAMINOPHEN) As Ordered ONE; +TRIAMCINOLONE ACETONIDE SUSP 40 MG/ML VIAL (J3301) As Ordered ONE; +diazePAM 2 MG TAB As Ordered ONE; +diphenhydrAMINE 25MG CAP As Ordered ONE
--- NOTE | 2020-05-30 00:12 | REP ---
C-ARM VIEWS BILATERAL SACROILIAC JOINTS: CLINICAL HISTORY: Pain. Three C-arm views of bilateral sacroiliac joints performed during bilateral sacroiliac joint injection by Dr. Medellin. Needle overlies each sacroiliac joint bilaterally. 30 seconds fluoroscopy time utilized. Electronically Signed by Santi Neal MD 05/30/2020 09:39 A
--- NOTE | 2020-05-30 02:22 | ECWPNPC ---
PATIENT NAME: NIKOLAY HAMILTON : 1940 GENDER: FEMALE VISIT DATE: 05/29/2020 DISCHARGE DATE: 05/29/20 1359 VISIT LOCKED DATE TIME: PHYSICIAN: AUSTIN SALAZAR MD RESOURCE: AUSTIN SALAZAR MD REASON FOR APPOINTMENT 1. BILATERAL SIJ HISTORY OF PRESENT ILLNESS GENERAL: -. FALL RISK SCREENING: SCREENING :NO FALLS REPORTED IN THE LAST YEAR PAIN SCREENING: PATIENT HAS A COMPLAINT OF ACUTE OR CHRONIC PAIN :YES LOCATION OF PAIN:LEFT HIP, RIGHT HIP BILATETRAL INTENSITY OF PAIN (SCALE OF 1 TO 10):5 WHAT DOES YOUR PAIN FEEL LIKE:BURNING, INTERMITTENT, STABBING DURATION:CONTINOUS PAIN IS INCREASED BY:ACTIVITIES PAIN IS DECREASED BY:OTHERS NOT DOING ANYTHING LEVEL OF RELIEF FROM PAIN TREATMENTS IN THE PAST: HEAT HELPS NURSING NOTE: -. PAIN CENTER INTAKE QUESTIONS: DO YOU HAVE A HISTORY OF MRSA? :NO DO YOU TAKE A BLOOD THINNERS? :YES COUMADIN DO YOU HAVE ANY BLEEDING DISORDERS? :NO ANY NEW NUMBNESS OR WEAKNESS IN YOUR LEGS OR ARMS? :NO ANY PACEMAKER,DEFIBRILLATOR, OR DORSAL COLUMN STIMULATOR? :NO DO YOU HAVE ANY RASHES OR OPEN SORES? :NO ARE YOU ALLERGIC TO IV DYE? :NO ARE YOU DIABETIC? :NO ANY NEW PROBLEMS WITH YOUR MEDICATIONS? :NO HAVE YOU RECEIVED A VACCINE IN THE PAST 30 DAYS? :NO DO YOU PLAN TO RECEIVE A VACCINE IN THE NEXT 21 DAYS? :NO DO YOU TAKE ANY IMMUNOSUPPRESSIVE MEDICATIONS? :NO ANY HISTORY OF SEIZURES? :NO ANY HISTORY OF CARDIAC ISSUES OR EVENTS? :NO DO YOU HAVE SLEEP APNEA? :NO ANY RECENT HEAD INJURY? :NO DO YOU HAVE ANY NEW INFECTIONS? :NO IS THERE A CHANCE YOU COULD BE ? :NO ARE YOU BREAST FEEDING? :NO WHEN DID YOU LAST EAT? : 05/28/20202029 WHEN DID YOU LAST DRINK? : 05/29/2020729 WHAT DID YOU LAST DRINK? : WATER NAME OF PERSON DRIVING YOU HOME? : HAILEY DO YOU HAVE ANY OTHER QUESTIONS OR CONCERNS? : - CURRENT MEDICATIONS TAKING LIVALO 2 MG TABLET 1 TABLET ORALLY ONCE A DAY AT BEDTIME, NOTES: 05/28/2020 2100 TAKING ASPIR-81 81 MG TABLET DELAYED RELEASE 1 TABLET ORALLY ONCE A DAY, NOTES: 05/28/2020 1100 TAKING NORTRIPTYLINE HCL 10 MG CAPSULE 1 CAPSULE ORALLY DAILY, NOTES: 05/28/20202099 TAKING ZOLPIDEM TARTRATE 5 MG TABLET 1 TABLET AT BEDTIME ORALLY ONCE A DAY, NOTES: 05/27/20202099 TAKING LEVOTHYROXINE SODIUM 75 MCG TABLET 1 TABLET ON AN EMPTY STOMACH IN THE MORNING ORALLY ONCE A DAY, NOTES: 05/28/2020 1100 TAKING ALPRAZOLAM 0.5 MG TABLET 1 TABLET ORALLY THREE TIMES A DAY, NOTES: 05/28/20202099 TAKING BUPROPION HCL ER (XL) 150 MG TABLET EXTENDED RELEASE 24 HOUR 1 TABLET IN THE MORNING ORALLY ONCE A DAY, NOTES: 05/28/20201099 TAKING VITAMIN D (ERGOCALCIFEROL) 2000 UNIT CAPSULE ORALLY , NOTES: 05/28/20201099 TAKING MULTI FOR HER 50+ - TABLET ORALLY , NOTES: 05/28/20201099 TAKING WARFARIN SODIUM 3 MG TABLET 1.5 TABLETS EVERY DAY EXCEPT WEDNESDAY TAKES 2 TABLETS ORALLY ONCE A DAY, NOTES: 4.5 MG 05/28/20200 TAKING BELBUCA 75 MCG FILM 1 FILM TO THE GUM BUCALLY EVERY 12 HRS, NOTES: NONE IN A COUPLE DAYS NOT-TAKING CITALOPRAM HYDROBROMIDE 20 MG TABLET 1 TABLET ORALLY ONCE A DAY NOT-TAKING GABAPENTIN 100 MG CAPSULE 1 CAPSULE ORALLY THREE TIMES A DAY, NOTES: TAKES NEEDED NOT-TAKING SUPER B COMPLEX W/ PROBIOTIC DAILY, NOTES: 0930 NOT-TAKING LIVALO 1 MG TABLET 2 TAB ORAL DAILY PAST MEDICAL HISTORY HYPERLIPIDEMIA ANXIETY DEGENERATIVE DISC DISEASE INSOMNIA HYPOTHYROIDISM CATARACTS 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 KIDNEY STONES 2014, 2017 ACUTE ON CHRONIC FATIGUE SYNDROME ALLERGIES SULFA: HIVES - ALLERGY TAPE ADHESIVE: HIVES - ALLERGY SURGICAL HISTORY TONSILLECTOMY 1945 ADENOIDECTOMY 1945 RIB TAKEN OUT GANGLION CYST X3 SHOULDER SURGERY CHOLECYSTECTOMY KIDNEY STONES REMOVED X2 ANKLE SURGERY LEFT THUMB SURGERY LITHOTRIPSY 05/2014 RIGHT EYE CATARACT SURGERY 06/18/15 LEFT EYE CATARACT SURGERY 08/2015 CYSTOSCOPY WITH STENT REMOVAL 11/30/2018 CYSTOSCOPY WITH STENT PLACEMENT 11/08/18 LEFT EYE CATARACT SURGERY 08/2019 FAMILY HISTORY FATHER: 66 YRS MOTHER: 75 YRS, [place]INGS: 78 YRS, DIAGNOSED WITH UNSPECIFIED HEART DISEASE 1 BROTHER(S) . 1DAUGHTER(S) . BROTHER FROM COLON\\/PANCREATIC CANCER. SOCIAL HISTORY GENERAL: TOBACCO USE ARE YOU A:FORMER SMOKER HOW LONG HAS IT BEEN SINCE YOU LAST SMOKED?1-5 YEARS LATEX QUESTIONNAIRE LATEX ALLERGY : HAVE YOU EVER DEVELOPED ANY TYPE OF REACTION AFTER HANDLING LATEX PRODUCTS SUCH RUBBER GLOVES, CONDOMS, DIAPHRAGMS, BALLOONS, SOCKS, OR UNDERWEAR?NO LATEX ALLERGY : HAVE YOU EVER DEVELOPED ANY TYPE OF REACTION DURING OR AFTER DENTAL APPOINTMENT, VAGINAL/RECTAL EXAMINATION, SURGICAL PROCEDURE, OR ANY OTHER EXPOSURE?NO DATE ASKED : 04/26/2020 LATEX RISK : HAVE YOU EVER HAD ANY DIFFICULTY BREATHING OR HIVES AFTER EATING OR HANDLING ANY FRUITS, OR VEGETABLES; SUCH KIWI, BANANAS, STONE FRUITS, OR CHESTNUTSNO LATEX RISK : DO YOU HAVE A PREVIOUS PERSONAL HISTORY OF MORE THAN NINE SURGERIES, SPINA BIFIDA, OR REPEATED CATHERIZATIONS? NO LATEX RISK : ARE YOU FREQUENTLY EXPOSED TO LATEX PRODUCTS IN YOUR OCCUPATION?NO LUNG CANCER SCREENING SMOKING STATUS:FORMER SMOKER ALCOHOL SCREENING DID YOU HAVE A DRINK CONTAINING ALCOHOL IN THE PAST YEAR?NO POINTS0 INTERPRETATIONNEGATIVE RECREATIONAL DRUG USE DENIES. CAFFEINE 1 A DAY.. SEXUAL HX HAD SEX IN THE LAST 12 MONTHS (VAGINAL, ORAL, OR ANAL)?: NO, HAVE YOU EVER HAD AN STD?: NO. HIV / HEP-C SCREENING HIV TEST OFFERED TO PATIENT:YES HEP-C TEST OFFERED TO PATIENT:YES CHRISTIAN THEAELAU56 YAZDANISM LANGUAGE LANGUAGES SPOKEN:LATVIAN EDUCATION LEVEL OF EDUCATION:NOT FINISHED COLLEGE LEARNING BARRIERS / SPECIAL NEEDS CHANGE FROM LAST VISIT?NO BARRIERS TO LEARNING?NO HEARING IMPAIRED?YES VISION IMPAIRED?YES COGNITIVELY IMPAIRED?YES :HEARING AIDES DOES NOT WEAR THEM :CORRECTIVE LENSES READINESS TO LEARN?YES LEARNING PREFERENCES?NO LEARNING CAPABILITIES PRESENT?YES EMOTIONAL BARRIERS?NO SPECIAL DEVICES?YES :WHEELCHAIR PHOTOGEOLOGIST NEEDED?NO DOMESTIC VIOLENCE NONE. DIET: REGULAR. EXERCISE: WALKS. MARITAL STATUS: . PAIN CLINIC PFS, CLERGY, PUBLIC HEALTH REFERRALS PFS REFERRAL NEEDED?NO CLERGY REFERRAL NEEDED?NO PUBLIC HEALTH REFERRAL NEEDED?NO HAS THE PATIENT BEEN EDUCATED REGARDING HIS/HER PLAN OF CARE?YES PLEASE DOCUMENT ANY ADDTIONAL DETAILS.PLEASE FREE TEXT IN THE NOTES SECTION. PROCEDURE INSTRUCTIONS HAS THE PATIENT BEEN EDUCATED REGARDING PAIN, THE RISK FOR PAIN, THE IMPORTANCE OF EFFECTIVE PAIN MANAGEMENT, AND THE PAIN ASSESSMENT PROCESS?YES ADVANCE DIRECTIVE ADVANCE DIRECTIVE DISCUSSED WITH PATIENT:YES HCP [facility]/MAJOR DIAGNOSTIC PROCEDURE SURGERY RELATED ONLY VITAL SIGNS WT 202.8 LBS, HT 60.5", BMI 38.95 INDEX, BP 128/80 MM HG, HR 79 /MIN, RR 18 /MIN, TEMP 96.0 F, OXYGEN SAT % 94%, SAFE IN ENV? (Y/N) YES, NA INITIALS AW 1219, REVIEWED BY: NLJ. EXAMINATION GENERAL EXAMINATION: THE PATIENT IS ALERT, ORIENTED TIMES THREE AND COOPERATIVE. HEART SHOWS REGULAR RHYTHM, NO MURMURS AND NO GALLOPS. LUNGS ARE CLEAR TO AUSCULTATION. 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 TREATMENT SACROILIITIS, NOT ELSEWHERE CLASSIFIED [facility] FLUORO GUIDANCE (PAIN)[id number] MEDICATION: BENADRYL TAB 25MG ORALLY (DIPHENHYDRAMINE)CONCHA AUGUSTIN 05/29/2020 12:40:44 PM > VERIFIED CELI DAVE 05/29/2020 12:44:46 PM > ADMINISTERED LOT # [id number] EXP: 09/2022 MEDICATION: NORCO TABLET 5MG/325MG ORALLY (HYDROCODONE/ACETAMINOPHEN)CONCHA AUGUSTIN 05/29/2020 12:40:58 PM > VERIFIED CELI DAVE 05/29/2020 12:45:40 PM > ADMINISTERED LOT# [id number] EXP: 07/2021 MEDICATION: VALIUM TAB 2MG ORALLY (DIAZEPAM)CONCHA AUGUSTIN 05/29/2020 12:41:22 PM > VERIFIED CELI DAVE 05/29/2020 12:46:39 PM > ADMINISTERED LOT# [id number] EXP: NOV 2020 PROCEDURES PAIN NURSING RECORD PRE-PROCEDURE IV SITE RIGHT ANTECUBITAL, PRE-PROCEDURE ORAL MEDICATIONS BENADRYL 25 MG PO AT 1240 BY Edin CONTE RN NORCO 5/325 MG PO AT 1240 BY Edin CONTE RN VALIUM 2 MG PO AT 1240 BY Edin CONTE RN PATIENT CARE IN ROOM 1310, PHYSICIAN IN ROOM 1329, START 1333, FINISH 1339, PHYSICIAN OUT OF ROOM 1340, OUT OF ROOM 1347, STEROID KENALOG, O2 RA, ECG NORMAL SINUS, PATIENT SHIELDED YES, SAFETY STRAP YES, PREP CHLOROPREP BY Rajendra AUGUSTIN RN, IV INFUSED N/A, DRESSING TEGADERM BY DR SALAZAR LOC: CELI DAVE 05/29/2020 1:18:01 PM > , 1. ALERT, ORIENTED RESP: CELI DAVE 05/29/2020 1:18:05 PM > , 1. REGULAR, NO DYSPNEA COLOR: CELI DAVE 05/29/2020 1:18:10 PM > , 1. PINK SKIN: CELI DAVE 05/29/2020 1:18:14 PM > , 1. WARM, DRY POSITION: CELI DAVE 05/29/2020 1:18:18 PM > , 1. PRONE VITALS: CELI DAVE 05/29/2020 1:18:23 PM > 156/89-84-18-96% , CELI DAVE 05/29/2020 1:27:56 PM > 146/81-79-18-94% CELI DAVE 05/29/2020 13:54> 124/30-38-54-100% DISCHARGE: POST PAIN 07/01 BILATERAL HIPS, DRESSING SITE DRY AND INTACT BILATERAL LOW BACK, IV N/A, GAIT STEADY, TEACHING COMPLETED, PATIENT ACKNOWLEDGES UNDERSTANDING YES, PATIENT DISCHARGED AT 1400 PN SI PRE PROCEDURE DIAGNOSIS SACROILIITIS, SACROILIAC JOINT DYSFUNCTION POST PROCEDURE DIAGNOSIS SACROILIITIS, SACROILIAC JOINT DYSFUNCTION PROCEDURE BILATERAL SACROILIAC JOINT BLOCK SURGEON DR. AUSTIN SALAZAR WATER SERVICE DISPATCHER NONE ANESTHESIA LOCAL PRE PROCEDURE NOTE THE PATIENT WITH HISTORY OF CHRONIC LOW BACK PAIN. I EVALUATED THE PATIENT AND REVIEWED THE CHART. I WENT OVER THE RISKS, ALTERNATIVES, AND BENEFITS ASSOCIATED WITH THIS PROCEDURE. I DISCUSSED THAT THE USE OF STEROIDS MAY CONTRIBUTE TO IMMUNOSUPPRESSION OF THE PATIENT'S BODY AGAINST INFECTIONS SUCH COVID-19. THE PATIENT IS AWARE OF THE POTENTIAL COMPLICATIONS ASSOCIATED WITH THIS VIRUS, INCLUDING, BUT NOT LIMITED TO, . I DISCUSSED THE USE OF DEXAMETHASONE INSTEAD OF KENALOG; HOWEVER, THE PATIENT WOULD LIKE TO MOVE FORWARD WITH KENALOG. THE PATIENT WOULD LIKE TO PROCEED AND GAVE CONSENT TO PERFORM THE PROCEDURE. THE PATIENT DENIES UNEXPLAINABLE WEIGHT LOSS, FEVER, CHILLS, OR NEW CHANGES IN URINARY OR BOWEL CONTROL. THE PATIENT IS COVID-19 NEGATIVE DESCRIPTION OF PROCEDURE THE PATIENT WAS BROUGHT TO THE PROCEDURE ROOM AND PLACED IN THE PRONE POSITION. THE LUMBOSACRAL AREA WAS CLEANED WITH CHLORAPREP SOLUTION AND DRAPED ASEPTICALLY. THE PROCEDURE WAS DONE UNDER STERILE CONDITIONS. A TIMEOUT WAS PERFORMED WHERE LATERALITY AND THE SITE OF THE PROCEDURE WERE CHECKED AND CONFIRMED WITH EVERYONE IN THE ROOM. UNDER FLUOROSCOPIC GUIDANCE, TARGET POINT WAS SELECTED AT THE LOWER BORDER OF THE RIGHT AND LEFT SACROILIAC JOINT. TARGET POINT WAS SELECTED AFTER MEDIAL ROTATION AND TILT OF THE MAGNIFIER OF THE C-ARM. LIDOCAINE WAS USED TO NUMB THE SKIN AND SUBCUTANEOUS TISSUE BELOW IT. A SPINAL NEEDLE, 22-GAUGE, WAS ADVANCED UNDER FLUOROSCOPIC GUIDANCE AND FOLLOWING PATIENT FEEDBACK UNTIL THE TARGET AREA WAS REACHED. THE POSITION OF THE NEEDLE WAS VERIFIED WITH AP AND LATERAL VIEWS. AFTER PROPER POSITION OF THE NEEDLE WAS ACHIEVED, ISOVUE-M DYE 30%, 0.25 ML, WAS INJECTED SHOWING ADEQUATE SPREAD OF THE DYE. KENALOG 40 MG WAS THEN INJECTED IN THE EACH JOINT. THEN, A SOLUTION OF 3 ML OF BUPIVACAINE 0.125% WAS USED TO FLUSH THE SITE. THE MEDICATIONS WERE VERIFIED WITH THE NURSE. THERE WAS NO EVIDENCE OF BLOOD, PARESTHESIA OR CEREBROSPINAL FLUID DURING THE PROCEDURE. THE PATIENT WAS SENT TO THE RECOVERY ROOM. THE PATIENT WAS MOVING THE EXTREMITIES AND DOING WELL. THERE WERE NO COMPLICATIONS DURING THE PROCEDURE. ESTIMATED BLOOD LOSS WAS LESS THAN 5 ML. FLUOROSCOPY TIME WAS 30 SECONDS POST PROCEDURE NOTE THE PROCEDURE DONE WAS DISCUSSED WITH THE PATIENT. THE PATIENT WILL BE SEEN IN A FOLLOW UP IN THE NEXT FEW WEEKS. I AM LOOKING FOR LONG LASTING PAIN RELIEF FOR THE PATIENT WITH THIS INTERVENTION. INSTRUCTIONS WERE GIVEN, QUESTIONS WERE ANSWERED, AND THE PATIENT EXPRESSED UNDERSTANDING AND AGREES WITH THE PLAN. THE PATIENT IS AWARE TO STAY HOME FOR THE NEXT WEEK, IF POSSIBLE, DUE TO COVID-19. I, MANUEL DENIS, DOCUMENTED THE ABOVE INFORMATION ACTING A SCRIBE FOR DR. SALAZAR. I HAVE REVIEWED THE ABOVE DOCUMENT, WRITTEN BY MANUEL DENIS, PULVI MIXER OPERATOR, AND I VERIFY THAT IT IS ACCURATE PROCEDURE CODES 05575 INJECT SACROILIAC JOINT, MODIFIERS: 50 DISPOSITION & COMMUNICATION FOLLOW UP F/UP WITH FAMILY INDEPENDENCE CASE MANAGER (REASON: POST SAMUEL SIJ) ELECTRONICALLY SIGNED BY AUSTIN SALAZAR MD, MD ON 05/29/2020 AT 04:57 PM EDT DISCLAIMER : THIS IS A VISIT SUMMARY EXTRACTED FROM THE [employer] CHART. IT IS NOT A COPY OF THE [employer] PROGRESS NOTE. REGI
== END ==
LOC: M PAIN 12:15
PROVIDERS: ATTEND Anesthesiology
DX: M46.1 Sacroiliitis, not elsewhere classified (principal); M53.3 Sacrococcygeal disorders, not elsewhere classified
CPT/HCPCS: G0260; J3301; Q9967

== ENCOUNTER 2020-06-25 17:10 | Emergency (ER) | payer MEDICARE, BC, OTHER ==
[~2020-06-25 17:10] MED LIST changes: -BUPIVACAINE HCL 0.25% 30ML VIAL As Ordered ONE; -ISOVUE-M 300 61% 15ML VIAL As Ordered ONE; -LIDOCAINE 1% SDV 30ML VIAL As Ordered ONE; -NORCO, ANEXSIA 5/325MG TABLET (HYDROcodone/ACETAMINOPHEN) As Ordered ONE; -TRIAMCINOLONE ACETONIDE SUSP 40 MG/ML VIAL (J3301) As Ordered ONE; -diazePAM 2 MG TAB As Ordered ONE; -diphenhydrAMINE 25MG CAP As Ordered ONE
--- NOTE | 2020-08-08 10:50 | ECGEPIP ---
NORMAL SINUS RHYTHM SEE SCANNED DOWNTIME REPORT MTDD
== END 2020-06-25 19:00 | disposition home or self-care (01) ==
LOC: M ED 17:10
DX: S20.212A Contusion of left front wall of thorax, initial encounter (principal); W17.89XA Other fall from one level to another, initial encounter; Y92.89 Other specified places as the place of occurrence of the external cause; Y93.55 Activity, bike riding; I51.9 Heart disease, unspecified; E07.9 Disorder of thyroid, unspecified; Z88.2 Allergy status to sulfonamides
CPT/HCPCS: 71250; 93005; 99284; G0463

== ENCOUNTER 2021-03-10 14:53 | Emergency (ER) | payer MEDICARE, BC, OTHER ==
[~2021-03-10] VITALS: Ht 154.9 cm; Wt 95.5 kg
[~2021-03-10 14:53] MED LIST changes: +BUPR150T12 PO; -BUPR150T3 PO
--- NOTE | 2021-03-10 15:29 | REP ---
INDICATION: FALL ON THINNERS, R/O BLEED. COMPARISON: None. TECHNIQUE: Axial CT images with multiplanar reformations. FINDINGS: No acute bleed or acute large vessel territorial infarct. Ventricles, cisterns and sulci are within normal limits. No mass effect or midline shift. No abnormal fluid collections. Paranasal sinuses and mastoid air cells are clear IMPRESSION: No acute findings. <Electronically signed by Carlos Kellogg > 03/10/21 1761
--- NOTE | 2021-03-10 15:31 | REP ---
INDICATION: FALL ON THINNERS, R/O BLEED. COMPARISON: None. TECHNIQUE: Axial CT images with multiplanar reformations. FINDINGS: No acute fracture or malalignment. Craniovertebral junction appears unremarkable. There is straightening of the cervical spine in absence of normal cervical lordosis. Degenerative changes narrow the disc spaces. No limiting canal stenosis. There is multilevel foraminal narrowing secondary to osteophyte formation, moderate, greater on the left. IMPRESSION: No acute findings. Degenerative changes. <Electronically signed by Carlos Kellogg > 03/10/21 1523
--- NOTE | 2021-03-10 15:57 | REP ---
INDICATION: FALL, BRUISING COMPARISON: None. TECHNIQUE: AP, lateral, bilateral oblique and sunrise views. FINDINGS: Anterior/prepatellar swelling. No acute fracture or dislocation. No obvious effusion. No subcutaneous emphysema or foreign body. IMPRESSION: No acute fracture or dislocation. <Electronically signed by Jr Parker > 03/10/21 [id number]
[2021-03-10] MEDS ORDERED: PERCOCET 5MG/325MG TAB PO ONE (16:45)
[2021-03-10] MEDS ORDERED: PERC5TAB12 PO (18:51)
[2021-03-10 19:10] VITALS: BP 156/61
== END 2021-03-10 19:15 | disposition home or self-care (01) ==
LOC: M ED 14:53
DX: S09.90XA Unspecified injury of head, initial encounter (principal); S80.02XA Contusion of left knee, initial encounter; S33.5XXA Sprain of ligaments of lumbar spine, initial encounter; W18.39XA Other fall on same level, initial encounter; Y92.480 Sidewalk as the place of occurrence of the external cause; K21.9 Gastro-esophageal reflux disease without esophagitis; Z79.899 Other long term (current) drug therapy; Z79.890 Hormone replacement therapy; Z79.82 Long term (current) use of aspirin; Z88.1 Allergy status to other antibiotic agents; Z88.2 Allergy status to sulfonamides; Z91.048 Other nonmedicinal substance allergy status

== ENCOUNTER 2021-03-14 17:03 | Emergency (ER) | payer MEDICARE, BC, OTHER ==
[~2021-03-14] VITALS: Ht 154.9 cm; Wt 208.0 kg
[2021-03-14 18:45] LABS: BASO % 0.5 % (0.0-1.0); EOS # 0.2 10^3/uL (0.0-0.5); EOS % 3.6 % (0.0-3.0); HEMOGLOBIN 11.4 g/dl (12.0-15.5); LYMPH # 1.5 10^3/uL (1.5-5.0); LYMPH % 26.1 % (24.0-44.0); MEAN CORPUSCULAR HEMOGLOBIN 28.8 pg (27.0-33.0); MEAN CORPUSCULAR HGB CONC 31.7 g/dl (32.0-36.5); MEAN CORPUSCULAR VOLUME 90.9 fl (80.0-96.0); MONO # 0.6 10^3/uL (0.0-0.8); MONO % 9.9 % (2.0-8.0); NEUTROPHILS # 3.5 10^3/uL (1.5-8.5); NEUTROPHILS % 59.7 % (36.0-66.0); PLATELET COUNT, AUTOMATED 177 10^3/uL (150-450); RED BLOOD COUNT 3.96 10^6/uL (4.00-5.40); WHITE BLOOD COUNT 5.9 10^3/uL (4.0-10.0)
[2021-03-14 19:33] LABS: ALBUMIN 3.1 GM/DL (3.2-5.2); ALT/SGPT 18 U/L (12-78); BILIRUBIN,TOTAL 0.5 MG/DL (0.2-1.0); BLOOD UREA NITROGEN 17 MG/DL (7-18); CALCIUM LEVEL 8.3 MG/DL (8.8-10.2); CARBON DIOXIDE LEVEL 30 MEQ/L (21-32); CHLORIDE LEVEL 108 MEQ/L (98-107); CK-MB VALUE MASS 1.2 NG/ML (<3.6); CPK CREATINE PHOSPHOKINASE 67 U/L (26-192); CREATININE FOR GFR 0.73 MG/DL (0.55-1.30); GLOMERULAR FILTRATION RATE > 60.0 (>39); GLUCOSE, FASTING 86 MG/DL (70-100); MB/CK RELATIVE INDEX 1.79 (< OR =4); POTASSIUM SERUM 4.7 MEQ/L (3.5-5.1); SODIUM LEVEL 142 MEQ/L (136-145); TOTAL PROTEIN 6.1 GM/DL (6.4-8.2); TROPONIN I < 0.02 NG/ML (< 0.10)
[2021-03-14] MEDS ORDERED: MORPHINE 4 MG/ML 1ML VIAL/SYRINGE (J2270) IV ONE ×2 (20:05→21:30)
[2021-03-14] MEDS ORDERED: ONDANSETRON 4MG/2ML VIAL IV ONE (20:05)
[2021-03-14] MEDS ORDERED: WARF-58 PO (21:38)
--- NOTE | 2021-03-14 22:40 | REPVR ---
PROCEDURE INFORMATION: Exam: MR Lumbar Spine Without Contrast Exam date and time: 03/14/2021 9:13 PM Age: 80 years old Clinical indication: Low back pain and lumbago; Additional info: Severe low back pain TECHNIQUE: Imaging protocol: Multiplanar magnetic resonance images of the lumbar spine without intravenous contrast. COMPARISON: 1. MRI-Spine, L.S. without con 2020-02-03 12:08 2. MRI-Spine, L.S. without con 2017-06-29 14:44 FINDINGS: Vertebrae: L4 acute superior endplate mild depression fracture with associated marrow edema and 1 mm retropulsion contributing to mild L3-L4 spinal narrowing. Mild paravertebral hemorrhage at the L4 level. Normal lumbar lordosis and vertebral alignments. Spinal cord: Normal signal. No cord compression. T12-L1: Small central disc extrusion without stenosis. L1-L2: Annular disc bulge without stenosis. L2-L3: Mild annular disc bulge with minimal narrowing. L3-L4: Dorsal epidural lipomatosis, facet arthropathy, mild ligamentum flavum thickening, and disc bulge with minimal L4 retropulsion causes mild spinal and right subarticular and foraminal stenosis. L4-L5: Mild facet arthropathy and ligamentum flavum thickening with an asymmetric right disc bulge with minimal right subarticular narrowing. L5-S1: Mild facet arthropathy. Soft tissues: Unremarkable. IMPRESSION: L4 acute superior endplate mild depression fracture with associated marrow edema and 1 mm retropulsion contributing to mild L3-L4 spinal narrowing. Electronically signed by: Lloyd Salinas On 03/14/2021 22:40:15 PM
[2021-03-14 23:26] LABS: RSV AMPLIFICATION NEGATIVE (NEGATIVE)
[2021-03-15 00:18] LABS: INR 2.37; PROTHROMBIN TIME 26.4 SECONDS (12.5-14.3)
[2021-03-15 00:19] LABS: PARTIAL THROMBOPLASTIN TIME 39.5 SECONDS (24.2-38.5)
[2021-03-15] MEDS ORDERED: NORCO, ANEXSIA 5/325MG TABLET (HYDROcodone/ACETAMINOPHEN) PO ONE ×2 (08:50→14:30)
[2021-03-15 20:34] VITALS: BP 168/77
--- NOTE | 2021-03-16 11:08 | ER ---
ER CONSULTATION DATE: 03/15/2021 CONSULTING SERVICE: Orthopedic surgery. CONSULTING PHYSICIAN: Tristen Talbot MD. HISTORY OF PRESENT ILLNESS: This is a 80-year-old female with complicated history of back pain as well as other medical issues as described below. She presented to [facility] on 03/14/2021 for lower back pain. Patient had a fall one week prior which she was controlling with activity modification, however, her pain became unbearable and she presented to [facility] for further evaluation and treatment. Of note; patient did not have cauda equina symptoms. She denied incontinence. She denied saddle anesthesia. She had no loss of lower extremity strength and no sensory motor changes of the lower extremities. Orthopedic surgery was consulted for further evaluation and treatment. I saw the patient to facilitate the patient's transfer to a higher level of care that can manage her spinal and lower back complaints. PAST MEDICAL HISTORY: Includes low back pain or lumbago, cataracts, disc degeneration, anxiety, osteoporosis, hyperlipidemia, spondylosis, depressive disorder, cervicalgia. PAST SURGICAL HISTORY: Included multiple D and C's, superior rib removal for thoracic outlet syndrome, Neer's procedure for left shoulder, and cholecystectomy. SOCIAL HISTORY: He is a nondrinker, nonsmoker, non-I.V. drug user. ALLERGIES: Include sulfa medications. CURRENT MEDICATIONS: Include Alprazolam, Ambien among others the patient can recall. PHYSICAL EXAMINATION: Patient was alert to person, time and place. Patient had tenderness to palpitation about her lumbar spine. There are no skin lesions. She did not endorse incontinence, saddle anesthesia, loss of lower extremity strength or sensory motor changes of the lower extremities. Patient was ambulatory despite pain to the lower back. BILATERAL NEUROVASCULAR NEUROLOGICAL EXAM: Neuro status bilateral lower extremity L1-3: Patient had sensation intact to light touch in the anterior thigh. No motor loss to hip flexors. No reflex loss. L3-4: Patient had sensation intact to light touch to medial calf, 5/5 strength in the quadriceps and tibialis anterior and intact knee jerk and this is again bilaterally. L4-5: Sensation intact to light touch to the lateral calf, dorsal foot, 5/5 motor strength to the EDL and EHL. L5-S1: Sensation intact to light touch and posterior calf and plantar foot, 5/5 motor strength in the gastrocnemius musculature and soleus musculature, intact ankle jerk. S2-4: Sensation intact to light touch to the perianal region, no motor loss to bowel or bladder. IMAGING: MRI of the lumbar spine was indicative of an L4 acute superior end-plate mild compression fracture with associated marrow with 1 mm of retropulsion. IMPRESSION: A 80-year-old female with compression fracture to L4; etiology unknown. PLAN: Given the fact that this patient had a compression fracture and unrelenting lumbar pain, she will be transferred to [facility] for further evaluation and treatment of her lumbar spine pain. Given the fact that we do not have spine privileges and we do not take spine call, I felt more comfortable transferring the patient to the appropriate level of care. Her compression fracture could be secondary to osteoporosis, possible metastatic disease or other pathology. Given this complicated medical ailment, she will get the appropriate treatment at a higher level of care. I recommend her transfer to [facility] as soon as possible. REGI
== END 2021-03-15 20:36 | disposition short-term general hospital (02) ==
LOC: M ED 17:03 → EDBD 17:03 → M ED 03-15 20:36
DX: S32.048A Other fracture of fourth lumbar vertebra, initial encounter for closed fracture (principal); W18.39XA Other fall on same level, initial encounter; Y92.89 Other specified places as the place of occurrence of the external cause; G89.29 Other chronic pain; M54.9 Dorsalgia, unspecified; E03.9 Hypothyroidism, unspecified; E78.5 Hyperlipidemia, unspecified; F33.9 Major depressive disorder, recurrent, unspecified; F41.9 Anxiety disorder, unspecified; M81.0 Age-related osteoporosis without current pathological fracture; Z86.711 Personal history of pulmonary embolism; Z86.73 Personal history of transient ischemic attack (TIA), and cerebral infarction without residual deficits; Z87.442 Personal history of urinary calculi; Z88.1 Allergy status to other antibiotic agents; Z88.2 Allergy status to sulfonamides; Z91.048 Other nonmedicinal substance allergy status; Z79.899 Other long term (current) drug therapy; Z79.82 Long term (current) use of aspirin; Z79.890 Hormone replacement therapy; Z79.01 Long term (current) use of anticoagulants; F17.210 Nicotine dependence, cigarettes, uncomplicated
CPT/HCPCS: 72148; 80053; 82550; 82553; 84443; 84484; 85025; 85610; 85730; 87631; 93041; 94760; 96374; 96375; 96376; 97161; 99285; J2270; J2405

== ENCOUNTER → 2021-05-29 | Outpatient (CLI) | payer MEDICARE, OTHER ==
[~2021-05-29] MED LIST changes: +WARF-58 PO
--- NOTE | 2021-05-30 23:50 | ECWPNPC ---
PATIENT NAME: NIKOLAY HAMILTON : 1940 GENDER: FEMALE VISIT DATE: 05/29/2021 DISCHARGE DATE: 05/29/21 1336 VISIT LOCKED DATE TIME: PHYSICIAN: JOANNE SANTAMARIA RESOURCE: JOANNE SANTAMARIA REASON FOR APPOINTMENT 1. BACK PAIN/L-4 BREAK HISTORY OF PRESENT ILLNESS DEPRESSION SCREENING: PHQ-2 (2015 EDITION) LITTLE INTEREST OR PLEASURE IN DOING THINGS?NOT AT ALL FEELING DOWN, DEPRESSED, OR HOPELESS?NOT AT ALL TOTAL SCORE0 GENERAL: HPI 80-YEAR-OLD FEMALE IN FOR CHRONIC PAIN FOLLOW-UP. IN FEBRUARY PATIENT WAS INVOLVED IN A FALL AND BROKE HER L4 VERTEBRAE SHE HAS SUBSEQUENTLY HAD SURGERY TO REPAIR THE BREAK. SINCE THAT TIME PATIENT HAS HAD ISSUES WITH INCREASED PAIN. SHE RATES HER PAIN CURRENTLY AT AN 8 OUT OF 10 AND DESCRIBES IT ACHING, SHARP, AND SHOOTING. PATIENT WAS ON BELBUCA IN THE PAST HOWEVER SHE DID NOT LIKE THE WAY THE MEDICATION MADE HER FEEL SO SHE DISCONTINUED USE.. -. FALL RISK SCREENING: SCREENING ONE FALLS THIS YEAR , SHE STEP DOWN OFF A STEP AND HURT BOTH SIDE OF HER FACE. AND BROKE HER BACK. PAIN SCREENING: PATIENT HAS A COMPLAINT OF ACUTE OR CHRONIC PAIN :YES LOCATION OF PAIN:MID BACK, LOW BACK INTENSITY OF PAIN (SCALE OF 1 TO 10):8 WHAT DOES YOUR PAIN FEEL LIKE:ACHING, SHARP, SHOOTING DURATION:CONTINOUS, ALL DAY, ONLY WITH SPECIFIC ACTIVITIES, INTERMITTENT PAIN IS INCREASED BY:ACTIVITIES PAIN IS DECREASED BY:OTHERS RESTING NURSING NOTE: -. PAIN CENTER INTAKE QUESTIONS: DO YOU HAVE A HISTORY OF MRSA? :NO DO YOU TAKE A BLOOD THINNERS? :YES WARFARIN, 06/11/20 @12AM DO YOU HAVE ANY BLEEDING DISORDERS? :NO ANY NEW NUMBNESS OR WEAKNESS IN YOUR LEGS OR ARMS? :NO ANY PACEMAKER,DEFIBRILLATOR, OR DORSAL COLUMN STIMULATOR? :NO DO YOU HAVE ANY RASHES OR OPEN SORES? :NO ARE YOU ALLERGIC TO IV DYE? :NO ARE YOU DIABETIC? :NO ANY NEW PROBLEMS WITH YOUR MEDICATIONS? :NO HAVE YOU RECEIVED A VACCINE IN THE PAST 30 DAYS? :NO DO YOU PLAN TO RECEIVE A VACCINE IN THE NEXT 21 DAYS? :NO DO YOU NEED ANY PRESCRIPTION? :NO DO YOU TAKE ANY IMMUNOSUPPRESSIVE MEDICATIONS? :NO IS THERE A CHANCE YOU COULD BE ? :NO ARE YOU BREAST FEEDING? :NO CURRENT MEDICATIONS TAKING LIVALO 2 MG TABLET 1 TABLET ORALLY ONCE A DAY AT BEDTIME TAKING ASPIR-81 81 MG TABLET DELAYED RELEASE 1 TABLET ORALLY ONCE A DAY TAKING NORTRIPTYLINE HCL 10 MG CAPSULE 1 CAPSULE ORALLY DAILY TAKING ZOLPIDEM TARTRATE 5 MG TABLET 1 TABLET AT BEDTIME ORALLY ONCE A DAY TAKING LEVOTHYROXINE SODIUM 75 MCG TABLET 1 TABLET ON AN EMPTY STOMACH IN THE MORNING ORALLY ONCE A DAY TAKING ALPRAZOLAM 0.5 MG TABLET 1 TABLET ORALLY THREE TIMES A DAY TAKING BUPROPION HCL ER (XL) 150 MG TABLET EXTENDED RELEASE 24 HOUR 1 TABLET IN THE MORNING ORALLY ONCE A DAY TAKING VITAMIN D (ERGOCALCIFEROL) 2000 UNIT CAPSULE ORALLY TAKING MULTI FOR HER 50+ - TABLET ORALLY TAKING WARFARIN SODIUM 3 MG TABLET 1.5 TABLETS EVERY DAY EXCEPT WEDNESDAY TAKES 2 TABLETS ORALLY ONCE A DAY TAKING BELBUCA 75 MCG FILM 1 FILM TO THE GUM BUCALLY EVERY 12 HRS, NOTES: NONE IN A COUPLE DAYS TAKING GABAPENTIN 100 MG CAPSULE 1 CAPSULE ORALLY THREE TIMES A DAY, NOTES: TAKES NEEDED NOT-TAKING CITALOPRAM HYDROBROMIDE 20 MG TABLET 1 TABLET ORALLY ONCE A DAY NOT-TAKING SUPER B COMPLEX W/ PROBIOTIC DAILY, NOTES: 09 NOT-TAKING LIVALO 1 MG TABLET 2 TAB ORAL DAILY MEDICATION LIST REVIEWED AND RECONCILED WITH THE PATIENT PAST MEDICAL HISTORY HYPERLIPIDEMIA ANXIETY DEGENERATIVE DISC DISEASE INSOMNIA HYPOTHYROIDISM CATARACTS 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 AND BROKE HER BACK ALLERGIES SULFA: HIVES - ALLERGY TAPE ADHESIVE: HIVES - ALLERGY SURGICAL HISTORY TONSILLECTOMY 1945 ADENOIDECTOMY 194 RIB TAKEN OUT GANGLION CYST X3 SHOULDER SURGERY CHOLECYSTECTOMY KIDNEY STONES REMOVED X2 ANKLE SURGERY LEFT THUMB SURGERY LITHOTRIPSY 05/2014 RIGHT EYE CATARACT SURGERY 06/18/15 LEFT EYE CATARACT SURGERY 08/2015 CYSTOSCOPY WITH STENT REMOVAL 11/30/2018 CYSTOSCOPY WITH STENT PLACEMENT 11/08/18 LEFT EYE CATARACT SURGERY 08/2019 SOCIAL HISTORY GENERAL: TOBACCO USE ARE YOU A:FORMER SMOKER HOW LONG HAS IT BEEN SINCE YOU LAST SMOKED?1-5 YEARS LATEX QUESTIONNAIRE LATEX ALLERGY : HAVE YOU EVER DEVELOPED ANY TYPE OF REACTION AFTER HANDLING LATEX PRODUCTS SUCH RUBBER GLOVES, CONDOMS, DIAPHRAGMS, BALLOONS, SOCKS, OR UNDERWEAR?NO LATEX ALLERGY : HAVE YOU EVER DEVELOPED ANY TYPE OF REACTION DURING OR AFTER DENTAL APPOINTMENT, VAGINAL/RECTAL EXAMINATION, SURGICAL PROCEDURE, OR ANY OTHER EXPOSURE?NO LATEX RISK : HAVE YOU EVER HAD ANY DIFFICULTY BREATHING OR HIVES AFTER EATING OR HANDLING ANY FRUITS, OR VEGETABLES; SUCH KIWI, BANANAS, STONE FRUITS, OR CHESTNUTSNO LATEX RISK : DO YOU HAVE A PREVIOUS PERSONAL HISTORY OF MORE THAN NINE SURGERIES, SPINA BIFIDA, OR REPEATED CATHERIZATIONS? NO LATEX RISK : ARE YOU FREQUENTLY EXPOSED TO LATEX PRODUCTS IN YOUR OCCUPATION?NO DATE ASKED : 05/29/2021 ALCOHOL USE: NO. LUNG CANCER SCREENING SMOKING STATUS:FORMER SMOKER ALCOHOL SCREENING DID YOU HAVE A DRINK CONTAINING ALCOHOL IN THE PAST YEAR?NO POINTS0 INTERPRETATIONNEGATIVE RECREATIONAL DRUG USE DENIES. CAFFEINE 1 A DAY.. SEXUAL HX HAD SEX IN THE LAST 12 MONTHS (VAGINAL, ORAL, OR ANAL)?: NO, HAVE YOU EVER HAD AN STD?: NO. 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 DIET: REGULAR. EXERCISE: WALKS. MARITAL STATUS: . - PFS REFERRAL NEEDED?NO CLERGY REFERRAL NEEDED?NO PUBLIC HEALTH REFERRAL NEEDED?NO HAS THE PATIENT BEEN EDUCATED REGARDING HIS/HER PLAN OF CARE?YES PLEASE DOCUMENT ANY ADDTIONAL DETAILS.PLEASE FREE TEXT IN THE NOTES SECTION. PROCEDURE INSTRUCTIONS HAS THE PATIENT BEEN EDUCATED REGARDING PAIN, THE RISK FOR PAIN, THE IMPORTANCE OF EFFECTIVE PAIN MANAGEMENT, AND THE PAIN ASSESSMENT PROCESS?YES ADVANCE DIRECTIVE ADVANCE DIRECTIVE DISCUSSED WITH PATIENT:YES HCP ZOYA KHAN LENARD [facility] HOSPITALIZATION/MAJOR DIAGNOSTIC PROCEDURE SURGERY RELATED ONLY ONE FALLS THIS YEAR , SHE STEP DOWN OFF A STEP AND HURT BOTH SIDE OF HER FACE. AND BROKE HER BACK REVIEW OF SYSTEMS CONSTITUTIONAL: ANY RECENT FEVER NO . CHILLS NO . WEIGHT CHANGE OF UNKNOWN REASONS NO . GASTROENTEROLOGY: NEW UNEXPLAINABLE CHANGES IN BOWEL CONTROL NO . CONSTIPATION NO . GENITOURINARY: ANY NEW CHANGE IN BLADDER CONTROL? NO . NEUROLOGY: NEW ONSET DIZZINESS OR NEUROLOGICAL CHANGES NOT MENTIONED NO . NEW NUMBNESS OR PAIN PATTERNS NOT MENTIONED AND PERTINENT TO TODAY'S VISIT NO . CARDIOLOGY: NEW CHEST PRESSURE NO . PATIENT DENIES NO . RESPIRATORY: UNEXPLAINABLE COUGH NO . NEW SHORTNESS OF BREATH NO . VITAL SIGNS WT 206.0 LBS, HT 60.5", BMI 39.57 INDEX, BP 130/81 MM HG, HR 60 /MIN, RR 18 /MIN, TEMP 97.0 F, OXYGEN SAT % 98%, NA INITIALS AW 1303. EXAMINATION GENERAL EXAMINATION: GENERALNO ACUTE DISTRESS, WELL NOURISHED AND HYDRATED. PSYCHAPPROPRIATE MOOD AND AFFECT . LUNGS:CLEAR TO AUSCULTATION BILATERALLY, NO WHEEZES, RHONCHI, RALES. HEART:NO MURMURS, REGULAR RATE AND RHYTHM. ASSESSMENTS SPONDYLOSIS OF LUMBAR REGION WITHOUT MYELOPATHY OR RADICULOPATHY - M47.816 (PRIMARY) TREATMENT SPONDYLOSIS OF LUMBAR REGION WITHOUT MYELOPATHY OR RADICULOPATHY START TRAMADOL HCL TABLET, 50 MG, 1 TABLET NEEDED, ORALLY, ONCE A DAY PRN PAIN MDD 1, 30 DAYS, 30 NOTES: 80-YEAR-OLD FEMALE IN FOR CHRONIC PAIN FOLLOW-UP. GIVEN PRESENTING SYMPTOMS RECOMMEND DISCONTINUING BELBUCA AND STARTING TRAMADOL 1 TAB DAILY NEEDED FOR PAIN WITH FOLLOW-UP IN 1 MONTH TO DETERMINE EFFICACY OF TREATMENT. PATIENT WAS ENCOURAGED TO DISCUSS HER INCREASED PAIN WITH HER SURGEON. PATIENT HAS EXPRESSED UNDERSTANDING OF AND WAS IN AGREEMENT WITH TREATMENT PLAN. GIVEN TIME TO ASK QUESTIONS AND EXPRESS CONCERNS. ISTOP REGISTRY REVIEWED AND DEMONSTRATES COMPLLIANCE. (REF # [id number] ) BRINGS IN MEDICATIONS WHICH IS APPROPRIATE FOR WHAT WAS DISPENSED. RECENT URINE TOXICOLOGY REVIEWED. NO UNAUTHORIZED MEDICATIONS. NO ILLICIT SUBSTANCES AND PRESCRIBED MEDICATIONS WERE PRESENT. PRINTED INFORMATION ON NEW MEDICATION FOR PATIENT, YARIEL MAS. PROCEDURE CODES FA211 ESTABILISHED PATIENT [facility] CHARGE DISPOSITION & COMMUNICATION FOLLOW UP 4 WEEKS (REASON: NEW MED) ELECTRONICALLY SIGNED BY DAVEY CARVER ON 05/30/2021 AT 12:36 PM EDT DISCLAIMER : THIS IS A VISIT SUMMARY EXTRACTED FROM THE [facility] CHART. IT IS NOT A COPY OF THE [facility] PROGRESS NOTE. [facility]
== END ==
LOC: M PAIN 13:00
PROVIDERS: ATTEND Family Medicine
DX: M47.816 Spondylosis without myelopathy or radiculopathy, lumbar region (principal); G89.29 Other chronic pain; E03.9 Hypothyroidism, unspecified; Z86.59 Personal history of other mental and behavioral disorders; Z86.711 Personal history of pulmonary embolism; Z87.891 Personal history of nicotine dependence; Z88.2 Allergy status to sulfonamides; Z91.09 Other allergy status, other than to drugs and biological substances; Z79.01 Long term (current) use of anticoagulants; Z79.82 Long term (current) use of aspirin; Z79.891 Long term (current) use of opiate analgesic; Z79.899 Other long term (current) drug therapy

== ENCOUNTER → 2021-06-26 | Outpatient (CLI) | payer MEDICARE, OTHER ==
--- NOTE | 2021-06-28 02:04 | ECWPNPC ---
PATIENT NAME: NIKOLAY HAMILTON : 1940 GENDER: FEMALE VISIT DATE: 06/26/2021 DISCHARGE DATE: 06/26/21 1420 VISIT LOCKED DATE TIME: PHYSICIAN: JOANNE SANTAMARIA RESOURCE: JOANNE SANTAMARIA REASON FOR APPOINTMENT 1. NEW MED HISTORY OF PRESENT ILLNESS GENERAL: HPI 80-YEAR-OLD FEMALE IN FOR CHRONIC PAIN FOLLOW-UP. SHE RATES HER PAIN CURRENTLY AT A 3 OUT OF 10 AND DESCRIBES BURNING AND SHARP. AT LAST CLINIC VISIT PATIENT WAS STARTED ON TRAMADOL AND SHE ADMITS TODAY THAT THIS WAS BENEFICIAL.. -. FALL RISK SCREENING: SCREENING ONE FALL IN FEBRUARY & WAS HOSPITALZED. PAIN SCREENING: PATIENT HAS A COMPLAINT OF ACUTE OR CHRONIC PAIN :YES LOCATION OF PAIN:MID BACK, LOW BACK INTENSITY OF PAIN (SCALE OF 1 TO 10):3 WHAT DOES YOUR PAIN FEEL LIKE:BURNING, SHARP DURATION:ONLY WITH SPECIFIC ACTIVITIES, INTERMITTENT SHOWERING PAIN IS INCREASED BY:ACTIVITIES PAIN IS DECREASED BY:USE OF PAIN MEDICATIONS HEAT & RECLINER NURSING NOTE: -. PAIN CENTER INTAKE QUESTIONS: DO YOU HAVE A HISTORY OF MRSA? :NO DO YOU TAKE A BLOOD THINNERS? :YES WARFARIN DO YOU HAVE ANY BLEEDING DISORDERS? :NO ANY NEW NUMBNESS OR WEAKNESS IN YOUR LEGS OR ARMS? :NO ANY PACEMAKER,DEFIBRILLATOR, OR DORSAL COLUMN STIMULATOR? :NO DO YOU HAVE ANY RASHES OR OPEN SORES? :NO ARE YOU ALLERGIC TO IV DYE? :NO ARE YOU DIABETIC? :NO ANY NEW PROBLEMS WITH YOUR MEDICATIONS? :NO HAVE YOU RECEIVED A VACCINE IN THE PAST 30 DAYS? :NO DO YOU PLAN TO RECEIVE A VACCINE IN THE NEXT 21 DAYS? :NO DO YOU NEED ANY PRESCRIPTION? :NO DO YOU TAKE ANY IMMUNOSUPPRESSIVE MEDICATIONS? :NO IS THERE A CHANCE YOU COULD BE ? :NO ARE YOU BREAST FEEDING? :NO CURRENT MEDICATIONS TAKING LIVALO 2 MG TABLET 1 TABLET ORALLY ONCE A DAY AT BEDTIME TAKING ASPIR-81 81 MG TABLET DELAYED RELEASE 1 TABLET ORALLY ONCE A DAY TAKING NORTRIPTYLINE HCL 10 MG CAPSULE 1 CAPSULE ORALLY DAILY TAKING ZOLPIDEM TARTRATE 5 MG TABLET 1 TABLET AT BEDTIME ORALLY ONCE A DAY TAKING LEVOTHYROXINE SODIUM 75 MCG TABLET 1 TABLET ON AN EMPTY STOMACH IN THE MORNING ORALLY ONCE A DAY TAKING ALPRAZOLAM 0.5 MG TABLET 1 TABLET ORALLY THREE TIMES A DAY TAKING BUPROPION HCL ER (XL) 150 MG TABLET EXTENDED RELEASE 24 HOUR 1 TABLET IN THE MORNING ORALLY ONCE A DAY TAKING VITAMIN D (ERGOCALCIFEROL) 2000 UNIT CAPSULE ORALLY TAKING MULTI FOR HER 50+ - TABLET ORALLY TAKING WARFARIN SODIUM 3 MG TABLET 1.5 TABLETS EVERY DAY EXCEPT WEDNESDAY TAKES 2 TABLETS ORALLY ONCE A DAY TAKING TRAMADOL HCL 50 MG TABLET 1 TABLET NEEDED ORALLY ONCE A DAY PRN PAIN MDD 1 NOT-TAKING BELBUCA 75 MCG FILM 1 FILM TO THE GUM BUCALLY EVERY 12 HRS, NOTES: NONE IN A COUPLE DAYS NOT-TAKING GABAPENTIN 100 MG CAPSULE 1 CAPSULE ORALLY THREE TIMES A DAY, NOTES: TAKES NEEDED NOT-TAKING CITALOPRAM HYDROBROMIDE 20 MG TABLET 1 TABLET ORALLY ONCE A DAY NOT-TAKING SUPER B COMPLEX W/ PROBIOTIC DAILY, NOTES: 09 NOT-TAKING LIVALO 1 MG TABLET 2 TAB ORAL DAILY MEDICATION LIST REVIEWED AND RECONCILED WITH THE PATIENT PAST MEDICAL HISTORY HYPERLIPIDEMIA ANXIETY DEGENERATIVE DISC DISEASE INSOMNIA HYPOTHYROIDISM CATARACTS 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 AND BROKE HER BACK ALLERGIES SULFA: HIVES - ALLERGY TAPE ADHESIVE: HIVES - ALLERGY SOCIAL HISTORY GENERAL: TOBACCO USE ARE YOU A:FORMER SMOKER HOW LONG HAS IT BEEN SINCE YOU LAST SMOKED?1-5 YEARS LATEX QUESTIONNAIRE LATEX ALLERGY : HAVE YOU EVER DEVELOPED ANY TYPE OF REACTION AFTER HANDLING LATEX PRODUCTS SUCH RUBBER GLOVES, CONDOMS, DIAPHRAGMS, BALLOONS, SOCKS, OR UNDERWEAR?NO LATEX ALLERGY : HAVE YOU EVER DEVELOPED ANY TYPE OF REACTION DURING OR AFTER DENTAL APPOINTMENT, VAGINAL/RECTAL EXAMINATION, SURGICAL PROCEDURE, OR ANY OTHER EXPOSURE?NO LATEX RISK : HAVE YOU EVER HAD ANY DIFFICULTY BREATHING OR HIVES AFTER EATING OR HANDLING ANY FRUITS, OR VEGETABLES; SUCH KIWI, BANANAS, STONE FRUITS, OR CHESTNUTSNO LATEX RISK : DO YOU HAVE A PREVIOUS PERSONAL HISTORY OF MORE THAN NINE SURGERIES, SPINA BIFIDA, OR REPEATED CATHERIZATIONS? NO LATEX RISK : ARE YOU FREQUENTLY EXPOSED TO LATEX PRODUCTS IN YOUR OCCUPATION?NO DATE ASKED : 05/29/2021 ALCOHOL USE: NO. LUNG CANCER SCREENING SMOKING STATUS:FORMER SMOKER ALCOHOL SCREENING DID YOU HAVE A DRINK CONTAINING ALCOHOL IN THE PAST YEAR?NO POINTS0 INTERPRETATIONNEGATIVE RECREATIONAL DRUG USE DENIES. CAFFEINE 1 A DAY.. SEXUAL HX HAD SEX IN THE LAST 12 MONTHS (VAGINAL, ORAL, OR ANAL)?: NO, HAVE YOU EVER HAD AN STD?: NO. 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 DIET: REGULAR. EXERCISE: WALKS. MARITAL STATUS: . - PFS REFERRAL NEEDED?NO CLERGY REFERRAL NEEDED?NO PUBLIC HEALTH REFERRAL NEEDED?NO HAS THE PATIENT BEEN EDUCATED REGARDING HIS/HER PLAN OF CARE?YES PLEASE DOCUMENT ANY ADDTIONAL DETAILS.PLEASE FREE TEXT IN THE NOTES SECTION. PROCEDURE INSTRUCTIONS HAS THE PATIENT BEEN EDUCATED REGARDING PAIN, THE RISK FOR PAIN, THE IMPORTANCE OF EFFECTIVE PAIN MANAGEMENT, AND THE PAIN ASSESSMENT PROCESS?YES ADVANCE DIRECTIVE ADVANCE DIRECTIVE DISCUSSED WITH PATIENT:YES HCP ZOYA KHAN LENARD BRAEDEN REVIEW OF SYSTEMS CONSTITUTIONAL: ANY RECENT FEVER NO . CHILLS NO . WEIGHT CHANGE OF UNKNOWN REASONS NO . GASTROENTEROLOGY: NEW UNEXPLAINABLE CHANGES IN BOWEL CONTROL NO . CONSTIPATION NO . GENITOURINARY: ANY NEW CHANGE IN BLADDER CONTROL? NO . NEUROLOGY: NEW ONSET DIZZINESS OR NEUROLOGICAL CHANGES NOT MENTIONED NO . NEW NUMBNESS OR PAIN PATTERNS NOT MENTIONED AND PERTINENT TO TODAY'S VISIT NO . CARDIOLOGY: NEW CHEST PRESSURE NO . PATIENT DENIES NO . RESPIRATORY: UNEXPLAINABLE COUGH NO . NEW SHORTNESS OF BREATH NO . VITAL SIGNS WT 203.4 LBS, WT-KG 92.26 KG, HT 60.5", BMI 39.07 INDEX, BP 158/69 MM HG, HR 87 /MIN, RR 18 /MIN, TEMP 96.0 F, OXYGEN SAT % 94%, SAFE IN ENV? (Y/N) YES, NA INITIALS AW 1336, REVIEWED BY: [facility]. MINERVA RN. EXAMINATION GENERAL EXAMINATION: GENERALNO ACUTE DISTRESS, WELL NOURISHED AND HYDRATED. PSYCHAPPROPRIATE MOOD AND AFFECT . LUNGS:CLEAR TO AUSCULTATION BILATERALLY, NO WHEEZES, RHONCHI, RALES. HEART:NO MURMURS, REGULAR RATE AND RHYTHM. 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 GIVEN PRESENTING SYMPTOMS RECOMMEND CONTINUATION OF CURRENT MEDICATION REGIMEN WITH FOLLOW-UP IN 3 MONTHS. PATIENT HAS EXPRESSED UNDERSTANDING OF AND WAS IN AGREEMENT WITH TREATMENT PLAN. GIVEN TIME TO ASK QUESTIONS AND EXPRESS CONCERNS. ISTOP REGISTRY REVIEWED AND DEMONSTRATES COMPLLIANCE. (REF #[id number] ) BRINGS IN MEDICATIONS WHICH IS APPROPRIATE FOR WHAT WAS DISPENSED. RECENT URINE TOXICOLOGY REVIEWED. NO UNAUTHORIZED MEDICATIONS. NO ILLICIT SUBSTANCES AND PRESCRIBED MEDICATIONS WERE PRESENT. CHRONIC PRESCRIPTION OPIATE USE LAB: URINE TEST GROUP [facility] 06/26/2021 2:07:41 PM > LAST DOSE: TRAMADOL 06/25/21, XANAX 06/25/21 VISIT CODES 01143 OFFICE VISIT, EST PT., LEVEL 3. PROCEDURE CODES FA211 ESTABILISHED PATIENT [facility] CHARGE DISPOSITION & COMMUNICATION FOLLOW UP 3 MONTHS (REASON: BACK PAIN) ELECTRONICALLY SIGNED BY DAVEY CARVER ON 06/27/2021 AT 07:33 AM EDT DISCLAIMER : THIS IS A VISIT SUMMARY EXTRACTED FROM THE [employer] CHART. IT IS NOT A COPY OF THE [employer] PROGRESS NOTE. [facility]
== END ==
LOC: M PAIN 13:30
PROVIDERS: ATTEND Family Medicine
DX: M47.816 Spondylosis without myelopathy or radiculopathy, lumbar region (principal); F41.9 Anxiety disorder, unspecified; E78.5 Hyperlipidemia, unspecified; G47.00 Insomnia, unspecified; E03.9 Hypothyroidism, unspecified; R53.82 Chronic fatigue, unspecified; Z79.891 Long term (current) use of opiate analgesic; Z86.711 Personal history of pulmonary embolism; Z87.891 Personal history of nicotine dependence; Z79.82 Long term (current) use of aspirin; Z79.899 Other long term (current) drug therapy; Z79.01 Long term (current) use of anticoagulants; Z88.2 Allergy status to sulfonamides; Z91.048 Other nonmedicinal substance allergy status

== ENCOUNTER → 2021-12-02 | Outpatient (CLI) | payer MEDICARE, OTHER | LOC: M PAIN 14:00 | PROVIDERS: ATTEND Anesthesiology | DX: M47.816 Spondylosis without myelopathy or radiculopathy, lumbar region (principal); E78.5 Hyperlipidemia, unspecified; F41.9 Anxiety disorder, unspecified; G47.00 Insomnia, unspecified; E03.9 Hypothyroidism, unspecified; H26.9 Unspecified cataract; Z86.711 Personal history of pulmonary embolism; Z86.73 Personal history of transient ischemic attack (TIA), and cerebral infarction without residual deficits; R53.82 Chronic fatigue, unspecified; Z87.891 Personal history of nicotine dependence; Z79.82 Long term (current) use of aspirin; Z79.01 Long term (current) use of anticoagulants; Z79.899 Other long term (current) drug therapy; Z88.2 Allergy status to sulfonamides; Z91.048 Other nonmedicinal substance allergy status ==

== ENCOUNTER → 2022-06-03 | Outpatient (CLI) | payer MEDICARE, BC, OTHER ==
[2022-06-03 19:58] LABS: INR 1.68; PROTHROMBIN TIME 20.2 SECONDS (12.7-14.5)
== END ==
LOC: M WUC 15:02
PROVIDERS: ATTEND Physician Assistant
DX: Z79.01 Long term (current) use of anticoagulants (principal)

== ENCOUNTER → 2025-02-09 | Outpatient (CLI) | payer MEDICARE, BC | LOC: M RAD 17:26 | PROVIDERS: ATTEND Physician Assistant | DX: M25.531 Pain in right wrist (principal); M47.817 Spondylosis without myelopathy or radiculopathy, lumbosacral region; R93.6 Abnormal findings on diagnostic imaging of limbs ==

== ENCOUNTER → 2025-02-15 | Outpatient (CLI) | payer MEDICARE, BC | LOC: M RAD 17:05 | PROVIDERS: ATTEND Physician Assistant | DX: M51.360 Other intervertebral disc degeneration, lumbar region with discogenic back pain only (principal); S39.012A Strain of muscle, fascia and tendon of lower back, initial encounter; W18.30XA Fall on same level, unspecified, initial encounter; Y92.009 Unspecified place in unspecified non-institutional (private) residence as the place of occurrence of the external cause ==